=== PATIENT | male | born 1960 | race Two or more races ===

== ENCOUNTER → 2020-01-18 13:32 | Outpatient (BNVA) | payer MEDICARE, MEDICAID, SELFPAY | PROVIDERS: Family Provider Family Medicine; PCP Nurse Practitioner Family; Referring Provider Nurse Practitioner Family; Visit Provider Anesthesiology Pain Medicine | DX: M47.816 Spondylosis without myelopathy or radiculopathy, lumbar region (principal); M51.16 Intervertebral disc disorders with radiculopathy, lumbar region; M54.9 Dorsalgia, unspecified; F17.210 Nicotine dependence, cigarettes, uncomplicated | CPT/HCPCS: 99203 ==

== ENCOUNTER 2020-02-27 12:19 | Emergency (ER) | payer MEDICARE, MEDICAID, SELFPAY ==
[2020-02-27 12:23] VITALS: BP 121/91; PULSE 75; RESP 18; TEMP 36.8; O2SAT 98; BMI 31.4
--- NOTE | 2020-02-27 12:46 | W.ED.BACK ---
HPI - Back Pain/Injury General: Chief Complaint: Back Pain/Injury Stated Complaint: lower back pain Time Seen by Provider: 02/27/20 12:31 Source: patient Mode of arrival: ambulatory Limitations: no limitations History of Present Illness: HPI Narrative: 59-year-old male patient states that he was going to see his sister the day before [place] and slipped causing him to overstretch and worsen his low back pain. Patient reports that since then he feels like he is not as strong in his legs as he had been before. Patient appears well. Patient moves extremities well. Patient ambulates with minimal difficulty. Patient does have a chronic history of low back pain. Patient has recently moved back to the area. Patient sees Tai Moser for his primary care. Review of Systems General: Reports: 10 or more systems reviewed and unremarkable except in HPI and below Musc: Reports: back pain PFS ED PFSH: Social History (Updated 01/18/20 @ 14:14 by Arabella Gonzales LPN) Smoking and tobacco status: current every day smoker cigarettes Alcohol intake: current Alcohol intake frequency: other Lives independently: Yes History of recent travel: Yes Details: recently moved from [place] Out of state: Yes Physical Exam Const: COMMON NORMALS: no acute distress and patient oriented x3 GENERAL APPEARANCE: cooperative HENMT: COMMON NORMALS: normocephalic and Normal external nose present HEAD & SCALP: normal to inspection and normocephalic NOSE: Normal external nose present MOUTH: Normal oral and palatal mucosa present Eye: GENERAL EYE: appearance normal, both eyes and all related structures Neck/C-Spine: COMMON NORMALS: full ROM Lymph: LYMPHATIC: no lymphadenopathy noted Chest: COMMONS NORMALS: normal inspection of the chest Resp: COMMON NORMALS: normal respiratory effort EFFORT & INSPECTION: Yes able to speak in complete sentences Cardio: COMMON NORMALS: regular rate and regular rhythm RATE: regular rate RHYTHM: regular rhythm GI: COMMON NORMALS: non-tender Back/Pelvis: OTHER: Patient has some lower bilateral paraspinous muscle tenderness. Patient has some muscle spasms noted in the low back. Extremity: COMMON NORMALS: normal to inspection Neuro: COMMON NORMALS: patient oriented x3 and moves all extremities Psych: COMMON NORMALS: mental status grossly normal and cooperative Skin: COMMON NORMALS: no rashes or lesions noted GENERAL SKIN EXAM: no rashes or lesions noted Course Vital Signs: Vital signs: Vital Signs Temperature 98.2 F 02/27/20 12:23 Pulse Rate 75 02/27/20 12:23 Respiratory Rate 18 02/27/20 12:23 Blood Pressure 121/91 02/27/20 12:23 Pulse Oximetry 98 02/27/20 12:23 MDM - Back Pain/Injury MDM Narrative: Medical decision making narrative: Patient comes in for exacerbation of chronic low back pain. Patient describes an event that sounds like a strain to the lumbar area. Patient denies any changes in bowel or bladder or fever. Patient does report increased difficulty getting around with leg weakness. Patient appears well. Patient appears in moderate pain with muscle spasms. Differential diagnosis includes lumbar strain, intervertebral disc disease, facet arthritis. Reviewed exam with patient with recommendations for treatment and follow-up with primary care for further evaluation and treatment. No imaging was recommended at this time as patient did not have any significant fall or any cauda equina suggestive symptoms. Differential Diagnosis: Differential diagnosis back pain/injury: Likely lumbar radiculopathy, sciatica, strain of lumbar region and discitis Medical Records: Attestation: I reviewed the patient's medical records. Discharge Plan Discharge Patient Disposition: Home Clinical Impression: Facet arthritis, degenerative, lumbar spine Strain of lumbar region Qualifiers: Encounter type: initial encounter Qualified Code(s): S39.012A - Strain of muscle, fascia and tendon of lower back, initial encounter Condition: Stable Prescriptions: New tramadol 50 mg tablet 50 mg PO Q6H PRN (Reason: pain) Qty: 20 RF: 0 No Action celecoxib [Celebrex] 200 mg capsule 200 mg PO DAILY RF: 0 omeprazole 20 mg capsule,delayed release(DR/EC) 20 mg PO DAILY RF: 0 aspirin [Adult Aspirin Regimen] 81 mg tablet,delayed release (DR/EC) 81 mg PO DAILY RF: 0 gabapentin 600 mg tablet 600 mg PO TID RF: 0 triamterene-hydrochlorothiazid 37.5-25 mg capsule 1 cap PO DAILY RF: 0 simvastatin 20 mg tablet 20 mg PO DAILY RF: 0 tizanidine 4 mg tablet 4 mg PO TID PRNRF: 0 metoprolol succinate 50 mg tablet extended release 24 hr 50 mg PO DAILY RF: 0 lisinopril 20 mg tablet 20 mg PO DAILY RF: 0 Discharge Orders: Discharge ED (Routine); Ordered 02/27/20 Ordered By: Michael Damon Referrals: Clem Neville MD [Family Provider] - Tai Moser NP [Primary Care Provider] - Discharge Diet: Usual diet Discharge Activity: Increase activity as tolerated Patient Instructions: Chronic Back Pain (ED) Activity Restrictions/Additional Instructions: Activity as tolerated. Follow-up with primary care, Tai Moser. Maintain activity as much as possible. Return to the emergency room for new concerns. Coding Level of Care Code ED Laminator Hand for Chg Fwd Exam Comprehensive
[2020-02-27] MEDS: orphenadrine 30 mg/mL Inj 2 mL 60 MG IM (13:19)
[2020-02-27] MEDS: ketorolac 30 mg/mL INJ IM (13:19)
[2020-02-27 13:29] VITALS: BP 121/79; PULSE 72; RESP 14; O2SAT 96
== END 2020-02-27 13:29 | disposition home or self-care (01) ==
PROVIDERS: Emergency Provider Nurse Practitioner Family; Family Provider Family Medicine; PCP Nurse Practitioner Family
DX: M47.816 Spondylosis without myelopathy or radiculopathy, lumbar region (principal); S39.012A Strain of muscle, fascia and tendon of lower back, initial encounter; Z79.82 Long term (current) use of aspirin; F17.210 Nicotine dependence, cigarettes, uncomplicated; W01.0XXA Fall on same level from slipping, tripping and stumbling without subsequent striking against object, initial encounter
CPT/HCPCS: 12345; 96372; 99281; 99283; J1885; J2360

== ENCOUNTER 2020-03-26 15:08 | Outpatient (CLI) | payer MEDICARE, MEDICAID, SELFPAY ==
--- NOTE | 2020-03-26 15:18 | MR_ITS ---
WS: [id number] MRI LUMBAR SPINE NONCONTRAST HISTORY: BACK PAIN COMPARISON: None available. TECHNIQUE: Sagittal and axial multisequence imaging is submitted. Disc disease and osteophytes throughout the cervical and thoracic spine. Mild encroachment upon the c entral cervical canal at C3-4 to C6-7. RIGHT lumbar scoliosis due to severe disc space narrowing and desiccation and degeneration. 4 to 5 mm retrolisthesis of L1-L4. Reactive marrow edema along the endplates with loss of the normal cortical margin of the vertebral body endplates. Bilateral facet joint arthritis. Conus terminates normally at L1-2 disc level. L1-L2: Diffuse asymmetric disc bulging and osteophytic ridging. Moderate bilateral foraminal stenosis due to disc osteophyte disease. Mild encroachment upon the subarticular recesses. L2-L3: Diffuse osteophytic ridging and disc bulging. Asymmetric facet joint arthritis, LEFT greater t esposito RIGHT. Moderate LEFT lateral recess and LEFT foraminal stenosis due to combination of disc diseas e, facet disease and ligamentum flavum disease. Only mild narrowing on the RIGHT. L3-L4: Diffuse asymmetric disc bulging and osteophytic ridging. Marked bilateral facet joint arthriti s, LEFT greater than RIGHT. Severe LEFT foraminal and LEFT subarticular recess stenosis. L4-L5: Diffuse osteophytic ridging and disc bulging. Marked bilateral ligamentum flavum hypertrophy a nd facet arthritis. Moderate central stenosis. Severe bilateral foraminal stenosis and severe narrowi ng of the LEFT lateral recess. L5-S1: Diffuse osteophytic ridging and disc bulging. LEFT lateral subarticular recess disc protrusion or osteophyte encroaches upon the LEFT S1 nerve root. There is moderate central stenosis. Severe marleen ateral subarticular recess stenosis and RIGHT foraminal stenosis. Only mild narrowing of the LEFT for amen. There is severe RIGHT facet joint arthritis. MR/MR lumbar spine wo con* [id number] IMPRESSION: 1. Severe multilevel degenerative disc disease, osteophytosis and facet arthro ho throughout the lumbar spine. 2. Moderate degenerative scoliosis with convexity to the RIGHT. 3. Moderate central with severe bilateral subarticular recess stenosis and sev ere RIGHT foraminal stenosis at L5-S1. 4. Moderate bilateral foraminal stenosis at L1-2 and on the LEFT at L2-3. 5. Severe LEFT foraminal LEFT subarticular recess stenosis at L3-4. 6. Severe bilateral foraminal stenosis, LEFT lateral recess and moderate centr al stenosis at L4-5.
== END 2020-03-26 15:09 | disposition home or self-care (01) ==
PROVIDERS: PCP Nurse Practitioner Family; Visit Provider Nurse Practitioner Family
DX: M48.061 Spinal stenosis, lumbar region without neurogenic claudication (principal); M48.07 Spinal stenosis, lumbosacral region; M41.86 Other forms of scoliosis, lumbar region; M51.36 Other intervertebral disc degeneration, lumbar region
CPT/HCPCS: 72148

== ENCOUNTER → 2020-04-02 15:56 | Outpatient (BNVA) | payer MEDICARE, MEDICAID, SELFPAY | PROVIDERS: PCP Nurse Practitioner Family; Referring Provider Nurse Practitioner Family; Visit Provider Orthopaedic Surgery | DX: M51.16 Intervertebral disc disorders with radiculopathy, lumbar region (principal) | CPT/HCPCS: 72114 ==

== ENCOUNTER → 2020-04-26 14:44 | Outpatient (BNVA) | payer MEDICARE, MEDICAID, SELFPAY | PROVIDERS: PCP Nurse Practitioner Family; Visit Provider Orthopaedic Surgery | DX: M51.16 Intervertebral disc disorders with radiculopathy, lumbar region (principal); Z20.822 Contact with and (suspected) exposure to COVID-19 | CPT/HCPCS: 87635 ==

== ENCOUNTER 2020-06-05 14:03 | Outpatient (CLI) | payer MEDICARE, MEDICAID, SELFPAY ==
--- NOTE | 2020-06-05 14:11 | US_ITS ---
WS: [id number] ULTRASOUND THYROID TECHNIQUE: Ultrasound of the thyroid. CLINICAL INFORMATION: NODULE OF SUBCUTANEIOUS TISSUE OF NECK COMPARISON: None. FINDINGS: Thyroid: Right and left thyroid lobes are normal in size and echotexture. No thyroid nodules are pres ent. Right thyroid lobe: 3.5 cm x 1.8 cm x 2.0 cm Left thyroid lobe: 3.7 cm x 1.1 cm x 1.8 cm. Isthmus: 0.4 mm. Cervical lymphadenopathy: A few slightly prominent but normal-appearing submandibular and cervical ch ain lymph nodes with preserved fatty lynn. Palpable abnormality likely corresponds to lymph nodes. US/US thyroid [id number] IMPRESSION: 1. Thyroid is normal in appearance. No nodules. 2. A few slightly prominent cervical chain and submandibular lymph nodes with preserved fatty lynn. This likely corresponds to the palpable right neck abnorm ality. If continued concern, this can be Further evaluated with contrast-enhanc ed neck CT.
== END 2020-06-05 14:04 | disposition home or self-care (01) ==
LOC: US 14:06
PROVIDERS: PCP Nurse Practitioner Family; Visit Provider Family Medicine
DX: R22.1 Localized swelling, mass and lump, neck (principal)
CPT/HCPCS: 76536

== ENCOUNTER 2020-06-26 09:10 | Emergency (ER) | payer MEDICARE, MEDICAID, SELFPAY ==
[2020-06-26 09:27] VITALS: BP 99/63; PULSE 112; RESP 18; TEMP 36.8; O2SAT 96; BMI 33.9
--- NOTE | 2020-06-26 09:42 | ED_ITS ---
HPI - Nausea/Vomiting/Diarrhea General: Chief complaint: Nausea/Vomiting/Diarrhea Stated complaint: n/v Time Seen by Provider: 06/26/20 09:35 History of Present Illness: HPI Narrative: Patient is a 59-year-old male comes to the ED with nausea, vomiting and diarrhea. Patient thinks he developed food poisoning. Patient made some food yesterday and ate it last night. He says this morning he woke up and he was having nausea vomiting and diarrhea. He says that his brother ate the same thing yesterday earlier today in the day and he developed the same symptoms. Denies any fever, chills, chest pain, shortness of breath, abdominal pain, dysuria or hematuria. Associated nausea: Yes Associated symtoms: Reports nausea; Denies change in vision, chest pain, dysuria, fatigue, headache(s) or palpitations Review of Systems Const: Denies: fever(s), chills or fatigue Eyes: Denies: change in vision or eye discomfort ENMT: Denies: throat pain, odynophagia, nasal discharge or nasal congestion Card: Denies: chest pain, palpitations, edema, swelling of feet/ankles, dyspnea on exertion or orthopnea Resp: Denies: dyspnea, productive cough or non-productive cough GI: Reports: nausea, vomiting and diarrhea; Denies: abdominal pain, constipation or hematochezia : Denies: flank pain, difficulty urinating, dysuria or hematuria Musc: Denies: neck pain, back pain or extremity swelling Skin/Breast: Denies: rash or new lesions Neuro: Denies: headache(s), numbness in extremities or weakness in extremities PFS ED PFSH: Social History Smoking and tobacco status: current every day smoker cigarettes Alcohol intake: current Alcohol intake frequency: other Lives independently: Yes History of recent travel: Yes Details: recently moved from [place] Out of state: Yes Physical Exam Const: COMMON NORMALS: no acute distress, patient oriented x3 and alert GENERAL APPEARANCE: cooperative and comfortable NUTRITIONAL APPEARANCE: overweight HENMT: COMMON NORMALS: normocephalic HEAD & SCALP: normocephalic MOUTH: Normal oral and palatal mucosa present THROAT: posterior oropharynx normal and uvula midline Neck/C-Spine: COMMON NORMALS: supple GENERAL: Yes normal visual inspection Resp: COMMON NORMALS: normal respiratory effort, No retractions, No use of accessory muscles and clear to auscultation bilaterally AUSCULTATION: clear to auscultation bilaterally Cardio: COMMON NORMALS: regular rate, regular rhythm, S1 normal heart sound present, S2 normal heart sound present, No gallops present (Cardio), No clicks present (Cardio), No murmurs present (Cardio) and Peripheral pulses 2+ throughout RATE: regular rate RHYTHM: regular rhythm HEART SOUNDS: S1 normal heart sound present and S2 normal heart sound present PERIPHERAL PULSES: Peripheral pulses 2+ throughout GI: COMMON NORMALS: Normal to inspection, nondistended, normoactive bowel sounds present, Soft to palpation, non-tender and no masses PALPATION: Yes Soft to palpation : COMMON NORMALS: Yes no CVA tenderness BLADDER/KIDNEY EXAM: Yes no CVA tenderness Back/Pelvis: COMMON NORMALS: no CVA tenderness Extremity: COMMON NORMALS: normal to inspection Neuro: COMMON NORMALS: patient oriented x3 and moves all extremities SENSORIUM/ORIENTATION: Yes alert Skin: GENERAL SKIN EXAM: dry skin Course Reevaluation(s): Reevaluation #1: I went in to check on patient after he received IV fluids and Reglan. Patient says he is feeling a lot better and nausea is greatly improved. Patient has had no episodes of emesis while here in the ED. Patient ready for discharge home. Time: 10:49 Vital Signs: Vital signs: Vital Signs Temperature 98.3 F 06/26/20 09:27 Pulse Rate 107 H 06/26/20 10:37 Respiratory Rate 18 06/26/20 10:37 Blood Pressure 102/61 06/26/20 10:37 Pulse Oximetry 95 06/26/20 10:37 MDM - Nausea/Vomiting/Diarrhea MDM Narrative: Medical decision making narrative: Patient is a 59-year-old male comes to the ED with nausea vomiting and diarrhea. Symptoms started several hours after he eating food. Patient's brother had same food earlier that day and developed same symptoms. Patient appears nontoxic and is in no acute distress or pain. Exam findings unremarkable patient had no abdominal tenderness. Vitals stable. patient had a white blood cell count of 16 but no other remarkable lab findings. Patient given IV fluids and Reglan while here in the ED and his symptoms greatly improved. He had no episodes of emesis while here in the ED. Patient was discharged home and diagnosed with food poisoning told to throw out food that cause symptoms to make sure he drinks plenty of fluids and stays hydrated. He was discharged home with a prescription for Reglan as well. Return to ED precautions given. Told to follow-up with his PCP in 7 to 10 days for reevaluation. Patient understood agree with plan. Lab Data: Attestation: I reviewed the patient's lab results. Labs: Lab Results 06/26/20 06/26/20 Range/Units 09:50 09:50 WBC 16.1 H (4.0-10.0) 10^3/ uL RBC 6.00 H (4.1-5.3) 10^6/u L Hgb 16.7 H (11.7-16.6) g/dL Hct 51.4 (42.0-52.0) % MCV 85.7 (80-94) fL MCH 27.8 L (28.0-34.0) pg MCHC 32.5 (30.0-36.0) g/dL RDW 13.7 (12.1-15.1) % Plt Count 231 (130-400) 10^3/c mm MPV 11.0 H (7.4-10.4) fL Neut % (Auto) 69.7 % Lymph % (Auto) 21.4 % [place] % (Auto) 5.2 % Eos % (Auto) 2.6 % Baso % (Auto) 0.4 % Neut # (Auto) 11.26 H (1.8-7.7) 10^3/u L Lymph # (Auto) 3.5 (0.8-4.8) 10^3/u L [place] # (Auto) 0.8 (0.2-0.9) 10^3/u L Eos # (Auto) 0.4 (0.0-0.8) 10^3/u L Baso # (Auto) 0.1 (0.0-0.1) 10^3/u L Nucleated RBC % (a uto) 0 % Nucleated RBCs # 0.0 /100WBC Sodium 141 (136-145) mmol/L Potassium 4.0 (3.5-5.1) mmol/L Chloride 104 (98-107) mmol/L Carbon Dioxide 24 (22-29) mmol/L Anion Gap 17.0 (5-19) BUN 23 H (6-20) mg/dL Creatinine 1.1 (0.7-1.2) mg/dL GFR Calculation 69.0 L (90-130) mL/min Glucose 131 H (65-115) mg/dL Calculated Osmolal ity 297 H (285-295) mOsm/k g Calcium 9.3 (8.5-10.5) mg/dL Total Bilirubin 0.5 (0.15-1.2) mg/dL AST 16 (0-40) U/L ALT 14 (0-41) U/L Alkaline Phosphata se 75 (40-130) IU/L Total Protein 7.3 (6.6-8.7) g/dL Albumin 4.6 (3.5-5.2) g/dL Globulin 2.7 (1.3-4.6) g/dL Lipase 25 (13-60) U/L EKG Data^: EKG 1: Attestation: I personally reviewed and interpreted this EKG as follows: EKG interpretation date: 06/26/20 Interpretation: Sinus tachycardia, 111 bpm, no ST segment elevation or depression seen. Discharge Plan Discharge Patient Disposition: Home Clinical Impression: Food poisoning Condition: Stable Prescriptions: New metoclopramide HCl 10 mg tablet 10 mg PO Q6H PRN (Reason: nausea and vomiting) Qty: 12 RF: 0 No Action celecoxib [Celebrex] 200 mg capsule 200 mg PO DAILY RF: 0 omeprazole 20 mg capsule,delayed release(DR/EC) 20 mg PO DAILY RF: 0 aspirin [Adult Aspirin Regimen] 81 mg tablet,delayed release (DR/EC) 81 mg PO DAILY RF: 0 gabapentin 600 mg tablet 600 mg PO TID RF: 0 triamterene-hydrochlorothiazid 37.5-25 mg capsule 1 cap PO DAILY RF: 0 simvastatin 20 mg tablet 20 mg PO DAILY RF: 0 tizanidine 4 mg tablet 4 mg PO TID PRNRF: 0 metoprolol succinate 50 mg tablet extended release 24 hr 50 mg PO DAILY RF: 0 lisinopril 20 mg tablet 20 mg PO DAILY RF: 0 tramadol 50 mg tablet 50 mg PO Q6H PRN (Reason: pain) Qty: 20 RF: 0 Discharge Orders: Discharge ED (Routine); Ordered 06/26/20 Ordered By: Manolo Haro Referrals: Tai Moser NP [Primary Care Provider] - Discharge Diet: Advance as tolerated Discharge Activity: Increase activity as tolerated Patient Instructions: Food Poisoning (ED) Activity Restrictions/Additional Instructions: Follow-up with medical provider as directed in 7 to 10 days for reevaluation. Take medications as prescribed to help with nausea. Make sure you drink plenty of fluids and stay hydrated. Return to the ER or your medical provider if condition worsens. Please read and understand discharge instructions. If any questions, please ask. Coding Level of Care Code ED Chamfering Machine Operator for Chg Fwd Exam Comprehensive
[2020-06-26 09:54] VITALS: BP 115/61; PULSE 95; RESP 18; O2SAT 93
[2020-06-26] MEDS: sodium chloride 0.9% 1,000 ML 999 ML IV (09:58)
[2020-06-26] MEDS: metoclopramide 5 mg/mL SDV 2 mL 10 MG IVP (09:59)
[2020-06-26 10:09] LABS: Basophils # 0.1 10^3/uL (0.0-0.1); Basophils % 0.4 %; Eosinophils # 0.4 10^3/uL (0.0-0.8); Eosinophils % 2.6 %; Hematocrit 51.4 % (42.0-52.0); Hemoglobin 16.7 g/dL (11.7-16.6); Lymphocytes # 3.5 10^3/uL (0.8-4.8); Lymphocytes % 21.4 %; Mean Corpuscular HGB Conc 32.5 g/dL (30.0-36.0); Mean Corpuscular Hemoglobin 27.8 pg (28.0-34.0); Mean Corpuscular Volume 85.7 fL (80-94); Monocytes # 0.8 10^3/uL (0.2-0.9); Monocytes % 5.2 %; Neutrophils # 11.26 10^3/uL (1.8-7.7); Neutrophils % 69.7 %; Nucleated Red Blood Cells % 0 %; Platelet Count 231 10^3/cmm (130-400); Red Cell Distribution Width 13.7 % (12.1-15.1); White Blood Count 16.1 10^3/uL (4.0-10.0)
[2020-06-26 10:27] LABS: Alanine Aminotransferase 14 U/L (0-41); Albumin Level 4.6 g/dL (3.5-5.2); Alkaline Phosphatase 75 IU/L (40-130); Aspartate Amino Transferase 16 U/L (0-40); Blood Urea Nitrogen 23 mg/dL (6-20); Calcium 9.3 mg/dL (8.5-10.5); Carbon Dioxide 24 mmol/L (22-29); Chloride 104 mmol/L (98-107); Globulin 2.7 g/dL (1.3-4.6); Glucose 131 mg/dL (65-115); Lipase 25 U/L (13-60); Osmolality Calculated 297 mOsm/kg (285-295); Sodium 141 mmol/L (136-145); Total Bilirubin 0.5 mg/dL (0.15-1.2); Total Protein 7.3 g/dL (6.6-8.7)
[2020-06-26 10:37] VITALS: BP 102/61; PULSE 107; RESP 18; O2SAT 95
[2020-06-26 11:32] VITALS: BP 123/89; PULSE 120; RESP 16; O2SAT 93
== END 2020-06-26 11:33 | disposition home or self-care (01) ==
PROVIDERS: Emergency Provider Physician Assistant; PCP Nurse Practitioner Family
DX: A05.9 Bacterial foodborne intoxication, unspecified (principal); Z79.82 Long term (current) use of aspirin; F17.210 Nicotine dependence, cigarettes, uncomplicated
CPT/HCPCS: 80053; 83690; 85025; 96361; 96374; 99283; J2765; J7030

== ENCOUNTER 2020-07-09 13:33 | Outpatient (CLI) | payer MEDICARE, MEDICAID, SELFPAY ==
[2020-07-09 14:43] LABS: Basophils # 0.1 10^3/uL (0.0-0.1); Basophils % 0.4 %; Eosinophils # 0.6 10^3/uL (0.0-0.8); Eosinophils % 3.5 %; Hematocrit 47.5 % (42.0-52.0); Hemoglobin 15.3 g/dL (11.7-16.6); Lymphocytes # 8.1 10^3/uL (0.8-4.8); Lymphocytes % 48.4 %; Mean Corpuscular HGB Conc 32.2 g/dL (30.0-36.0); Mean Corpuscular Hemoglobin 28.2 pg (28.0-34.0); Mean Corpuscular Volume 87.6 fL (80-94); Mean Platelet Volume 11.4 fL (7.4-10.4); Monocytes # 1.1 10^3/uL (0.2-0.9); Monocytes % 6.5 %; Neutrophils # 6.76 10^3/uL (1.8-7.7); Neutrophils % 40.2 %; Nucleated Red Blood Cells % 0 %; Platelet Count 282 10^3/cmm (130-400); Red Blood Count 5.42 10^6/uL (4.1-5.3); White Blood Count 16.8 10^3/uL (4.0-10.0)
--- NOTE | 2020-07-09 16:08 | ONC CON_ITS ---
Dr. Jimenez New Patient Note Patient: Sadi Paniagua Jr Unit #: [id number]: 1960 Dicatated By: Selene Jimenez M.D.Date of Visit: July 09, 2020 Onc MED New Patient/Consult Referring Physician: Jared Villarreal History of Present Illness: Mr. Siva Avitia, is a 59-year-old gentleman with a history of leukocytosis since 2018, as per patient that was the first time he saw oncologist in [place] and he was told everything was fine and he used to see his oncologist every 6 months with lab work-up and last time he saw him in January 2019 as in June 2019 he moved to [facility] because of low cost of living. Patient never had bone marrow evaluation done never had CT scan done, His lab work-up done in his PMDs office on May 16, 2020 showed white blood count 13.7 hemoglobin 14.3 hematocrit 42.3 platelets 230,000 with lymphocytes 48% neutrophil 41% absolute lymphocyte count 6600., PSA was 2 patient denies any night sweats denies any weight loss denies any abdominal fullness denies any recurrent fever, denies any peripheral lymphadenopathy except recently his new PMD noted some right submandibular/neck lymph nodes, for which he underwent ultrasound thyroid on June 05, 2020 which showed thyroid is normal in appearance ,few slightly prominent cervical chain and mandibular lymph nodes with preserved fatty lynn. His past medical history significant for history of esophageal stricture status post esophageal dilation in 2019. History of smoking, smoked 1 pack a day, colonoscopy was done on March 01, 2016 Past Medical History: Mr. Siva Harrison's medical history consists of arthritis, nerve damage, and scoliosis. Past Surgical History: Mr. Siva Harrison's surgical/procedural history consists of hernia repair in 2016 and appendectomy in 1976. Medications: Advair Diskus 1 Puff(s) (of 500-50 mcg/dose) Aerosol Powder, Breath Activated Inhalation b.i.d., Gabapentin 1 Tablet (of 600 mg) Oral t.i.d., Ketorolac Tromethamine 1 Tablet (of 10 mg) Oral PRN, Lisinopril 1 Tablet (of 20 mg) Oral daily, Meloxicam 1 Tablet (of 15 mg) Oral daily, Metoprolol Succinate ER 1.5 Tablet Tablet SR 24 HR Oral daily, Omeprazole 1 Capsule (of 20 mg) Capsule Delayed Release Oral daily, Simvastatin 1 Tablet (of 20 mg) Oral daily, tiZANidine HCl 1 Tablet (of 4 mg) Oral PRN, Triamterene-HCTZ 1 Tablet (of 37.5-25 mg) Oral daily, Ventolin HFA 1 Puff(s) (of 108 (90 base) mcg/act) Aerosol, solution Inhalation PRN Allergies: Morphine Sulfate Social History: Mr. Siva Harrison is single. He is a daily smoker who has smoked 1.0 pack/day for 35 years. He has no history of drinking. He has indicated exposure to the following products: cigarettes. Family History: Mr. Siva Harrison's mother at age 66: myocardial infarction. Mr. Siva Harrison's father at age 68: type II diabetes. Review Of Symptoms: Review of Systems is not available for this patient. Vital Signs: Performed on July 09, 2020 15:47: 0, 8, 0.00, 0.00 sq.m, 98 %, 67 /min, 18 /min, 119/72 mm(hg), 96.9 F (LOW), and 199 lbs (HIGH). Performance Status: 0 - Fully active, able to carry on all predisease activities without restrictions. (ECOG) Physical Examination: ENMT - No mouth sores, no thrush, no jaundice, mild shotty cervical lymphadenopathy more prominent on the right side no axillary lymph node or supraclavicular lymph node, Respiratory - Poor air entry otherwise clear, Cardiovascular - Regular rate and rhythm of heart, Abdomen - Soft, bowel sounds present, Extremities - No visible edema or rash. Lab/Imaging: Most recent lab results are not available for this patient. Impression: Leukocytosis/lymphocytosis as per labs done on May 16, 2020 his white blood count was 13.7, hemoglobin 14 point hematocrit 42.3 platelets 230,000 with absolute lymphocyte count 6600 and ultrasound next done on June 05, 2020 shows a few slightly prominent but normal-appearing submandibular and cervical chain lymph nodes with preserved fatty lynn otherwise no abnormality seen Patient has history of leukocytosis since March 2017, was followed by oncologist in [place], on 6 monthly basis with lab work-up, as per patient no bone marrow evaluation or any scan was done and he was told everything is fine. Chronic smoking 1 pack a day for more than 35 years Arthritis Esophageal stricture status post dilatation x2 in 2019. Last colonoscopy was in March 2016 Plan: . 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 Patient was advised to quit smoking and was offered any assistance he may need. Signed By: Selene Jimenez M.D. <<Signature on File>>
== END 2020-07-09 13:34 | disposition home or self-care (01) ==
PROVIDERS: PCP Nurse Practitioner Family; Visit Provider Internal Medicine Hematology & Oncology
DX: D72.820 Lymphocytosis (symptomatic) (principal); F17.210 Nicotine dependence, cigarettes, uncomplicated; M19.90 Unspecified osteoarthritis, unspecified site; K22.2 Esophageal obstruction; Z79.899 Other long term (current) drug therapy
CPT/HCPCS: 36415; 85025; 99205

== ENCOUNTER → 2020-07-12 14:00 | Outpatient (BNVA) | payer MEDICARE, MEDICAID, SELFPAY | PROVIDERS: PCP Nurse Practitioner Family; Visit Provider Orthopaedic Surgery | DX: Z01.812 Encounter for preprocedural laboratory examination (principal); Z20.822 Contact with and (suspected) exposure to COVID-19 | CPT/HCPCS: 87635 ==

== ENCOUNTER 2020-07-17 11:34 | Day surgery (SDC) | payer MEDICARE, MEDICAID, SELFPAY ==
--- NOTE | 2020-04-30 14:39 | SUR.PREOP ---
when I called patient to complete pre op, he stated he forgot that surgery was scheduled for tomorrow and he needs to get his vehicle fixed instead. Provided patient with ortho clinic phone number to reschedule.
[2020-07-16 16:04] VITALS: BMI 32.1
--- NOTE | 2020-07-17 | SCC_ITS ---
Procedure Done: 1. L4/5 laminectomy with partial facetectomy Bilateral 11.4 seconds of fluoroscopic guidance, for a cumulative dose of 5.06 mGy, was provided to Dr. Elliott by the radiology department. C-arm images of the lumbar spine were saved for the patient's permanent record. [facility]
[2020-07-17 12:03] VITALS: BP 134/96; PULSE 72; RESP 16; TEMP 36.5; O2SAT 98
[2020-07-17] MEDS: sodium chloride 0.9% 1,000 ML 30 ML IV (12:16)
--- NOTE | 2020-07-17 12:33 | P.HP_ITS ---
Providers/Chief Complaint Primary Care Provider: Tai Moser NP Chief Complaint: bilateral miss decompression L4/5 91873, [id number] History of Present Illness Sadi Paniagua Jr is a 59 year old male He states he has questions he would like answered prior to his surgery. Chief Complaint: low back pain, surgery questions Onset: 15 years Duration: years Characteristics: pressure, ache Severity: 8/10 Location: low back Radiating symptoms:left leg weakness right hip,right lateral thigh into toes, Aggravating factors: everything Alleviating factors: rest Neuro deficits: denies, incontinence of bowel/bladder, saddle anesthesia. Prior tx: physical therapy with no change in symptoms. trigger point injections. Review of Systems Narrative: General ROS: negative for weight changes, fever ENT ROS: negative for nasal congestion, drainage or bleeding, sore throat, dysphagia or ear pain Eyes: PERRL Hematological and Lymphatic ROS: negative for swollen glands or abnormal bleeding Endocrine ROS: negative for polyuria/polydpsia or new changes in weight Respiratory ROS: negative for cough, shortness of breath, or wheezing Cardiovascular ROS: negative for chest pain or dyspnea on exertion Gastrointestinal ROS: negative for reflux, abdominal pain, change in bowel habits, or black or bloody stools Musculoskeletal ROS: negative for back pain, neck pain, or joint pain or swelling except for current problem Neurological ROS: negative for TIA or stoke symptoms Skin: no rashes Medications/Allergies Home Medications Medication Instructions Recorded Confirmed Last Taken Type aspirin 81 mg tablet,delayed 81 mg PO DAILY 01/18/20 07/16/20 07/15/20 History release gabapentin 600 mg tablet 600 mg PO TID 01/18/20 07/17/20 07/17/20 History lisinopril 20 mg tablet 20 mg PO DAILY 01/18/20 07/16/20 07/16/20 History metoprolol succinate 50 mg 50 mg PO DAILY 01/18/20 07/17/20 07/17/20 08:00 History tablet,extended release 24 hr omeprazole 20 mg capsule,delayed 20 mg PO DAILY 01/18/20 07/17/20 07/17/20 History release simvastatin 20 mg tablet 20 mg PO DAILY 01/18/20 07/16/20 07/16/20 History tizanidine 4 mg tablet 4 mg PO TID PRN 01/18/20 07/17/20 07/17/20 History triamterene 37.5 1 cap PO DAILY 01/18/20 07/17/20 07/17/20 History mg-hydrochlorothiazide 25 mg capsule albuterol sulfate 90 mcg/actuation 2 puff INHALATION Q6H PRN 07/04/20 07/16/20 05/15/20 History aerosol inhaler fluticasone 500 mcg-salmeterol 50 1 inh INHALATION BID 07/04/20 07/16/20 04/17/20 History mcg/dose blistr powdr for inhalation meloxicam 15 mg tablet 15 mg PO DAILY 07/04/20 07/16/20 07/16/20 History Allergies Allergy/AdvReac Type Severity Reaction Status Date / Time morphine AdvReac ITCHING Verified 07/04/20 09:47 PFSH Acute PFSH: Social History Smoking and tobacco status: current every day smoker cigarettes Packs smoked per day: 1 Years cigarettes smoked: 40 Alcohol intake: current Alcohol intake frequency: other Lives independently: Yes History of recent travel: Yes Details: recently moved from [place] Out of state: Yes Vitals/I&O/Wt Last Vital Signs Temp 97.7 F 07/17/20 12:03 Pulse 72 07/17/20 12:03 Resp 16 07/17/20 12:03 BP 134/96 07/17/20 12:03 Pulse Ox 98 07/17/20 12:03 Weight last 48 hrs Weight 199 lb Physical Exam Narrative: EXAM NARRATIVE: CONSTITUTIONAL: The patient is a normal appearing [] in no apparent distress. GENERAL: Patient in no acute distress. CARDIAC: Regular rate and rhythm. CHEST: Normal inspiratory effort, normal respiratory rate. ABDOMEN: Soft and nontender. SKIN: Clear, warm and intact. NEURO?PSYCH: The patient is alert and oriented to person, place and time. Sensorv /SILT Motor StrengthShoulder abduction C5 5/5Wrist extension C6 5/5Elbow extension C7 5/5Hand [employer] C8 5/5Finger abduction T15/5 Radial/ Ulnar/ Median n intact LowerSensory (SILT)Motor StrengthHin flexion L2/3Ant/inner thigh 5/5Hip adduction L2/3 5/5Knee extension L4 Lat thigh, 5/5Toe dorsiflexion L5 5/5Ankle dorsiflexion L5/ F73Uuyqwty flexion S1 5/5 DTRBleeps 2+Triceps 2+Brachioradialis 2+Patellar 2+Achilles 2+ MUSCULOSKELETAL: [] UPPEREXTREMITIES: The patient had full active ROM in fingers, wrist, elbow, and shoulder. The patient demonstrated ability to fully flex/extend/abduct/adduct fingers, make ok sign, cross 2nd/3rd digits, extend 1st digit fully.. Radial pulse 2+, CR<2 seconds. LOWER EXTREMITIES: Pt has full, active ROM of toes, ankle, knee, and hip. Dorsalis pedis/posterior tibialis pulses 2+, CR<2 seconds. SPINE: Skin warm, dry, intact. 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
--- NOTE | 2020-07-17 13:01 | P.ANESASSM_ITS ---
Pre-Anesthetic Assessment Pre-Anesthetic Assessment: Height/Weight: Height 1.68 m Weight 90.265 kg Temp Pulse Resp BP Pulse Ox 97.7 F 72 16 134/96 98 07/17/20 12:03 07/17/20 12:03 07/17/20 12:03 07/17/20 12:03 07/17/20 12:03 Preop Diagnosis: lumbar stenosis Proposed Procedure: Operation Date: 05/01/20 16:30 Proposed Procedures p bilateral mis decompression L4/5 33902, 90143 m48.06(Bilateral) - Mnocho H Lexi, DO Operation Date: 06/17/20 12:35 Proposed Procedures p Bilateral Mis Decompression L4/5 87834 02730 M48.06(Bilateral) - Moncho H Lexi, DO Operation Date: 07/17/20 14:00 Proposed Procedures p Bilateral Mis Decompression L4/5 01281 08841 M48.06(Bilateral) - Moncho H Lexi, DO Was Beta Vipin taken within 24 hours: Yes Last intake: Intake Last Liquid Date 07/16/20 Last Liquid Time 22:30 Last Solid Date 07/16/20 Last Solid Time 20:00 Social: Social History: Tobacco and No alcohol Exam: Pre-Anes Outpt Exam: alert, oriented x 3, clear to auscultation bilaterally and regular rate & rhythm Airway: Submandibular: WNL Cervical ROM: WNL MP: 2 Dentition: False History/ROS: No significant history except as noted and No significant comp laints Pulmonary: Pulmonary: WRIGHT CV/HEM: CV/HEM: HTN : : None reported Hepatic: Hepatic: None reported GI: GI: GERD Metabolic: Metabolic: None reported Musc/skel: Musc/skel: Lower Back Pain and OA/DJD Neuropsych: Neuropsych: None reported Anesthetic Plan: ASA status: 3 Anesthesia: Anesthesia Evaluation and General Risk of > 500 ml blood loss (7ml/kg in children): No Meds/Allergies Current Medications: Current Medications Generic Name Dose Route Start Last Admin Trade Name Freq PRN Reason Stop Dose Admin Sodium Chloride 1,000 mls @ 30 ml s/hr 07/17/20 12:00 07/17/20 12:16 Sodium Chloride 0.9% IV 07/18/20 11:59 30 mls/hr .Q24H DAPHNEY Administration PFSH Anesthesia PFSH: Social History Smoking and tobacco status: current every day smoker cigarettes Packs smoked per day: 1 Years cigarettes smoked: 40 Alcohol intake: current Alcohol intake frequency: other Lives independently: Yes History of recent travel: Yes Details: recently moved from [place] Out of state: Yes Data Anesthesia Cardiac Studies: No Data to Display
--- NOTE | 2020-07-17 14:12 | XR_ITS ---
WS: [id number] Lumbar spine, C-arm fluoroscopy views, 07/17/2020 Clinical Data: OR PICS Comparison: None. Findings: Dr. Elliott inspected the L3-L4 disc level. XR/XR lumbar spine 1V [id number] Impression: Visualization of the L3-L4 disc level.
[2020-07-17 14:15] VITALS: BP 144/117; PULSE 96; RESP 20; TEMP 36.2; O2SAT 96
[2020-07-17 14:20] VITALS: BP 122/79; PULSE 81; RESP 12; O2SAT 99
[2020-07-17 14:25] VITALS: BP 125/80; PULSE 89; RESP 18; TEMP 36.6; O2SAT 96
--- NOTE | 2020-07-17 14:25 | P.OP_ITS ---
Operative Report Date of procedure: July 17, 2020 Pre-op Diagnosis: lumbar stenosis L4/5 Post-op diagnosis: same Procedure Done: 1. L4/5 laminectomy with partial facetectomy Bilateral Anesthesia: General Estimated blood loss (mL): 5 Condition: stable Disposition: PACU Procedure: 1. L4/5 laminectomy with partial facetectomy Bilateral Patient is brought to the operative suite. After undergoing anesthesia they are placed in the supine position. All areas of impingement are well padded. Patien t is then prepped and draped in the normal sterile fashion. A skin incision is made over the L4/5 level. This is confirmed under c-arm guidance. A series of dilators are passed and the tubular retractor is docked on the L4 lamina. A bovie is used to clear the soft tissue off the lamina and the L 4/5 facet joint. A high speed aman is then used to perform the laminectomy and take down the medial aspect of the L 4/5 facet joint. A kerrison rongeure was then used to take down the remaining lamina and smooth the edged of the laminectomy up to the point where the ligamentum flavum attaches. Attention was then brought to the medial aspect of the facet joint. The remaining medial aspect of the superior and inferior aspect of the facet joint were taken down with the kerrison from the pedicle of L4 to L 5. The facet joint had significant hypertrophy. Attention was then brought to the Ligamentum Flavum. The ligament was taken down from the lamina of L4 to L5 and out medially to the remaining facet joint. The ligament was thick. The dura was then exposed. The dura was in good repair. The L4 nerve was then traced with a curette out the L4/5 foramen and found to be adequately decompressed. The L5 nerve was traced with a curette around the L5 pedicle. The lateral recess was opened with a kerrison helping to further decompress the L5 nerve. The tubular retractor was then tilted to the contralateral side. The bovie was used to take down the soft tissue on the spinous process. The high speed aman was used to take down the spinous process and then the contralateral lamina of L4. The kerrison rongeur was used to take down the remaining lamina to the point where the ligamentum flavum attached and the ligamentum flavum was taken down from L4 to L5. The kerrison rongeur was then used to reach across and take down the medial aspect of the contralateral L4/5 facet joint.The currete was used to trace the contralateral L4 nerve out the L4/5 foramen to make sure it was decompressed adequatesly and the L5 was traced around the L5 pedicle. The lateral recess was opened further with the kerrison to ensure the L5 is adequately decompressed. Wound is then irrigated copiously with saline and surgiflo is used to stop any bleeding. The tubular retractor is removed and the wound is closed with vicryl and monocryl suture. Glue is then used to protect the wound. A sterile dressing is then placed. Patient was then placed in the supine position and transferred to the PACU in stable condition.
[2020-07-17 14:31] VITALS: BP 121/87; PULSE 81; RESP 16; TEMP 36.6; O2SAT 97
[2020-07-17 14:46] VITALS: BP 137/90; PULSE 64; RESP 16; TEMP 36.7; O2SAT 99
--- NOTE | 2020-07-17 15:38 | ANE.PACU2 ---
Inpatient post-anesthesia follow up: Airway intact: Yes Vital signs: Temperature 98.1 F Pulse Rate 64 Respiratory Rate 16 Blood Pressure 137/90 Pulse Oximetry 99 Oxygen Delivery Me thod Room Air Oxygen Flow Rate 8 Fraction of Inspir ed Oxygen Hydration adequate: Yes Nausea and vomiting: No Pain level: 2 Mental status: Baseline
== END 2020-07-17 15:10 | disposition home or self-care (01) ==
PROVIDERS: PCP Nurse Practitioner Family; Visit Provider Orthopaedic Surgery
PROC: (CPT 63005; principal; 2020-07-17 13:40)
DX: M48.061 Spinal stenosis, lumbar region without neurogenic claudication (principal); I10 Essential (primary) hypertension; K21.9 Gastro-esophageal reflux disease without esophagitis; F17.210 Nicotine dependence, cigarettes, uncomplicated; Z79.82 Long term (current) use of aspirin
CPT/HCPCS: 63047; 72020; 76000; J0690; J1100; J2405; J2704; J2710; J3010; J3490; J7030

== ENCOUNTER 2020-08-19 13:59 | Outpatient (CLI) | payer MEDICARE, MEDICAID, SELFPAY ==
[2020-08-19 14:47] LABS: Basophils # 0.1 10^3/uL (0.0-0.1); Basophils % 0.5 %; Eosinophils # 0.8 10^3/uL (0.0-0.8); Eosinophils % 5.5 %; Hematocrit 42.3 % (42.0-52.0); Hemoglobin 13.9 g/dL (11.7-16.6); Lymphocytes # 7.5 10^3/uL (0.8-4.8); Lymphocytes % 49.6 %; Mean Corpuscular HGB Conc 32.9 g/dL (30.0-36.0); Mean Corpuscular Hemoglobin 28.4 pg (28.0-34.0); Mean Corpuscular Volume 86.3 fL (80-94); Monocytes # 0.9 10^3/uL (0.2-0.9); Neutrophils # 5.69 10^3/uL (1.8-7.7); Neutrophils % 37.5 %; Nucleated Red Blood Cells % 0 %; Platelet Count 231 10^3/cmm (130-400); Red Cell Distribution Width 14.2 % (12.1-15.1); White Blood Count 15.2 10^3/uL (4.0-10.0)
[2020-08-19 15:12] LABS: Albumin Level 4.1 g/dL (3.5-5.2); Alkaline Phosphatase 75 IU/L (40-130); Anion Gap 15.8 (5-19); Blood Urea Nitrogen 21 mg/dL (6-20); Calcium 9.1 mg/dL (8.5-10.5); Carbon Dioxide 22 mmol/L (22-29); Chloride 108 mmol/L (98-107); Globulin 2.1 g/dL (1.3-4.6); Glomerular Filtration Rate 62.2 mL/min (90-130); Glucose 96 mg/dL (65-115); Lactate Dehydrogenase 192 U/L (135-225); Osmolality Calculated 295 mOsm/kg (285-295); Potassium 4.8 mmol/L (3.5-5.1); Sodium 141 mmol/L (136-145); Total Bilirubin 0.2 mg/dL (0.15-1.2); Total Protein 6.2 g/dL (6.6-8.7)
[2020-08-19 15:27] LABS: Slide Review Slide Review Perform
[2020-08-19 15:39] LABS: Alanine Aminotransferase < 5 U/L (0-41); Aspartate Amino Transferase 5 U/L (0-40)
--- NOTE | 2020-08-19 16:41 | ONC FU_ITS ---
Dr. Jimenez follow up note Patient: Sadi Paniagua Jr Unit #: [id number]: 1960 Dicatated By: Selene Jimenez M.D.Date of Visit:Aug 19, 2020 Onc Med Follow-up/Prog Note History of Present Illness: Mr. Siva Avitia, is a 59-year-old gentleman with a history of leukocytosis since 2018, as per patient that was the first time he saw oncologist in [place] and he was told everything was fine and he used to see his oncologist every 6 months with lab work-up and last time he saw him in January 2019 as in June 2019 he moved to [facility] because of low cost of living. Patient never had bone marrow evaluation done never had CT scan done, His lab work-up done in his PMDs office on May 16, 2020 showed white blood count 13.7 hemoglobin 14.3 hematocrit 42.3 platelets 230,000 with lymphocytes 48% neutrophil 41% absolute lymphocyte count 6600., PSA was 2 patient denies any night sweats denies any weight loss denies any abdominal fullness denies any recurrent fever, denies any peripheral lymphadenopathy except recently his new PMD noted some right submandibular/neck lymph nodes, for which he underwent ultrasound thyroid on June 05, 2020 which showed thyroid is normal in appearance ,few slightly prominent cervical chain and mandibular lymph nodes with preserved fatty lynn. His past medical history significant for history of esophageal stricture status post esophageal dilation in 2019. History of smoking, smoked 1 pack a day, colonoscopy was done on March 01, 2016 Came for follow-up, denies any specific complaints, no fever chills, no nausea or vomiting, no diarrhea constipation, no night sweats, no weight loss, no recurrent fever, no peripheral lymphadenopathy, no abdominal fullness, no generalized weakness or fatigue. Medications: Advair Diskus 1 Puff(s) (of 500-50 mcg/dose) Aerosol Powder, Breath Activated Inhalation b.i.d., Gabapentin 1 Tablet (of 600 mg) Oral t.i.d., Ketorolac Tromethamine 1 Tablet (of 10 mg) Oral PRN, Lisinopril 1 Tablet (of 20 mg) Oral daily, Meloxicam 1 Tablet (of 15 mg) Oral daily, Metoprolol Succinate ER 1.5 Tablet Tablet SR 24 HR Oral daily, Omeprazole 1 Capsule (of 20 mg) Capsule Delayed Release Oral daily, Simvastatin 1 Tablet (of 20 mg) Oral daily, tiZANidine HCl 1 Tablet (of 4 mg) Oral PRN, Triamterene-HCTZ 1 Tablet (of 37.5-25 mg) Oral daily, Ventolin HFA 1 Puff(s) (of 108 (90 base) mcg/act) Aerosol, solution Inhalation PRN Allergies: Morphine Sulfate Review of Systems: Review of Systems is not available for this patient. Vital Signs: Performed on Aug 19, 2020 16:02 Weight - 202.2 lbs (HIGH) BSA - 0.00 sq.m BMI - 0.00 Temperature - 96.8 F (LOW) Pulse - 73 /min Respiration - 18 /min BP - 121/82 mm(hg) O2 Sat - 98 % Pain - 0 Fatigue - 6 Performance Status: 0 - Fully active, able to carry on all predisease activities without restrictions. (ECOG) Physical Examination: ENMT - No mouth sores, no thrush, no jaundice no cervical lymphadenopathy, Respiratory - Lungs are clear to auscultation, Cardiovascular - Regular rate and rhythm of heart, Abdomen - Soft, bowel sounds present, Extremities - No visible edema or rash. Lab/Imaging: Most recent lab results are not available for this patient. Impression: Leukocytosis/lymphocytosis as per labs done on May 16, 2020 his white blood count was 13.7, hemoglobin 14 point hematocrit 42.3 platelets 230,000 with absolute lymphocyte count 6600 and ultrasound next done on June 05, 2020 shows a few slightly prominent but normal-appearing submandibular and cervical chain lymph nodes with preserved fatty lynn otherwise no abnormality seen Patient has history of leukocytosis since March 2017, was followed by oncologist in [place], on 6 monthly basis with lab work-up, as per patient no bone marrow evaluation or any scan was done and he was told everything is fine. Chronic smoking 1 pack a day for more than 35 years Arthritis Esophageal stricture status post dilatation x2 in 2018. Last colonoscopy was in March 2016 Plan: Discussed with patient regarding his labs white blood count 15.2, Absolute lymphocyte count 7500, hemoglobin 13.9 hematocrit 42.3 platelets 231,000 CMP within normal limits including LDH Clinically, patient doing well with no new signs symptoms history of disease progression no evidence of peripheral lymphadenopathy, no organomegaly, follow-up CBC shows mild leukocytosis/lymphocytosis comprehensive metabolic panel within normal range including LDH, will continue to monitor return to clinic in 6 months with CBC CMP and LDH Signed By: Selene Jimenez M.D. <<Signature on File>>
== END 2020-08-19 14:00 | disposition home or self-care (01) ==
LOC: ONCMED 14:02
PROVIDERS: PCP Nurse Practitioner Family; Visit Provider Internal Medicine Hematology & Oncology
DX: D72.820 Lymphocytosis (symptomatic) (principal); F17.210 Nicotine dependence, cigarettes, uncomplicated; M19.90 Unspecified osteoarthritis, unspecified site; K22.2 Esophageal obstruction; Z79.899 Other long term (current) drug therapy
CPT/HCPCS: 36415; 80053; 83615; 85025; 99214

== ENCOUNTER → 2020-10-17 12:50 | Outpatient (BNVA) | payer MEDICARE, MEDICAID, SELFPAY | PROVIDERS: PCP Nurse Practitioner Family; Visit Provider Internal Medicine | DX: Z01.812 Encounter for preprocedural laboratory examination (principal); Z20.822 Contact with and (suspected) exposure to COVID-19 | CPT/HCPCS: 87635 ==

== ENCOUNTER 2020-10-31 09:20 | Outpatient (CLI) | payer MEDICARE, MEDICAID, SELFPAY ==
--- NOTE | 2020-10-31 09:27 | MR_ITS ---
WS: [id number] MRI BRAIN WITH HIGH-RESOLUTION IMAGING THROUGH THE INTERNAL AUDITORY CANALS WITHOUT AND WITH CONTRAST HISTORY: HEARING LOSS;WORSE ON RIGHT COMPARISON: None available. TECHNIQUE: Multiplanar, multisequence imaging is performed through the brain. Additional 3 mm imaging performed in multiple planes through the internal auditory canal. Postcontrast imaging with 20 ml's of MultiHance. No acute intracranial hemorrhage, midline shift, edema or mass effect. Single focus of subcortical white matter disease in the LEFT frontal lobe. Very nonspecific. No prior infarcts. Ventricles and extra-axial spaces are normal. No inferior displacement of cerebellar tonsils. Clivus and pituitary gland are normal. Internal and external auditory canals: Unremarkable. Cranial nerves VII and VIII complexes: Unremarkable. No enhancement or mass. Cerebellopontine angles: Normal. Paranasal sinuses: Normal. Mastoid air cells: Normal. Calvarium and scalp: Normal. Visualized [facility] [facility] [place] [facility] [place] and dural venous sinuses demonstrate no abnormality. MR/MR iac's wo/w con* [id number] IMPRESSION: Normal MRI IACs.
[2020-10-31] MEDS: gadobenate dimeglumine 20 mL vial IV (13:51)
== END 2020-10-31 09:21 | disposition home or self-care (01) ==
LOC: RADSHAW 09:24
PROVIDERS: PCP Nurse Practitioner Family; Visit Provider Otolaryngology
DX: H91.93 Unspecified hearing loss, bilateral (principal)
CPT/HCPCS: 70553; A9577

== ENCOUNTER → 2020-12-26 08:43 | Outpatient (BNVA) | payer MEDICARE, MEDICAID, SELFPAY | PROVIDERS: PCP Nurse Practitioner Family; Visit Provider Orthopaedic Surgery | DX: M54.2 Cervicalgia (principal); M43.12 Spondylolisthesis, cervical region | CPT/HCPCS: 72050 ==

== ENCOUNTER → 2020-12-31 09:32 | Outpatient (BNVA) | payer MEDICARE, MEDICAID, SELFPAY | PROVIDERS: PCP Nurse Practitioner Family; Referring Provider Orthopaedic Surgery; Visit Provider Anesthesiology Pain Medicine | DX: G89.29 Other chronic pain (principal); M47.816 Spondylosis without myelopathy or radiculopathy, lumbar region; M48.061 Spinal stenosis, lumbar region without neurogenic claudication; M51.16 Intervertebral disc disorders with radiculopathy, lumbar region; M54.2 Cervicalgia; M79.603 Pain in arm, unspecified; M79.604 Pain in right leg; M79.605 Pain in left leg; F17.200 Nicotine dependence, unspecified, uncomplicated; Z79.891 Long term (current) use of opiate analgesic | CPT/HCPCS: 99214 ==

== ENCOUNTER → 2021-01-27 12:14 | Outpatient (BNVA) | payer MEDICARE, MEDICAID, SELFPAY | PROVIDERS: PCP Nurse Practitioner Family; Referring Provider Nurse Practitioner Family; Visit Provider Nurse Practitioner | DX: R42 Dizziness and giddiness (principal); I95.1 Orthostatic hypotension | CPT/HCPCS: 99204 ==

== ENCOUNTER → 2021-01-29 13:04 | Outpatient (BNVA) | payer MEDICARE, MEDICAID, SELFPAY | PROVIDERS: PCP Nurse Practitioner Family; Visit Provider Anesthesiology Pain Medicine | DX: M54.12 Radiculopathy, cervical region (principal); Z79.891 Long term (current) use of opiate analgesic; F17.200 Nicotine dependence, unspecified, uncomplicated | CPT/HCPCS: 62321; J1100 ==

== ENCOUNTER 2021-02-03 10:56 | Outpatient (CLI) | payer MEDICARE, MEDICAID, SELFPAY ==
--- NOTE | 2021-02-03 11:07 | US_ITS ---
WS: [id number] RIGHT UPPER QUADRANT ULTRASOUND HISTORY: EPIGASTRIC ABDOMINAL PAIN COMPARISON: None available. Liver: 18.2 cm in length. Mildly enlarged liver. Heterogeneity throughout the liver with no mass or b ile duct dilatation. Subtle area of decreased attenuation near the ambreen hepatis may be an area of he patic steatosis. Normal hepatic and portal vein flow. Gallbladder: Normally distended gallbladder with no stones or wall thickening. CBD: 0.4 cm Pancreas: Not well visualized. Right kidney: 10.2 cm in length. Normal size and echogenicity. No hydronephrosis or mass. Aorta and IVC: Unremarkable abdominal aorta and IVC. No ascites. US/US abdomen limited [id number] IMPRESSION: 1. Normal gallbladder. 2. Area of decreased echogenicity near the ambreen hepatis. Nonspecific in appea jeffrey. This may be an area of hepatic steatosis. Early neoplasm not excluded. C onsider follow-up CT of the abdomen and pelvis with IV and oral contrast for fu rther evaluation. 3. Nonvisualization of the pancreas.
== END 2021-02-03 10:57 | disposition home or self-care (01) ==
LOC: RAD 10:59
PROVIDERS: PCP Nurse Practitioner Family; Visit Provider Nurse Practitioner Family
DX: R10.13 Epigastric pain (principal)
CPT/HCPCS: 76705

== ENCOUNTER → 2021-02-12 10:02 | Outpatient (BNVA) | payer MEDICARE, MEDICAID, SELFPAY | PROVIDERS: PCP Nurse Practitioner Family; Visit Provider Anesthesiology Pain Medicine | DX: G89.29 Other chronic pain (principal); M47.816 Spondylosis without myelopathy or radiculopathy, lumbar region; M51.16 Intervertebral disc disorders with radiculopathy, lumbar region; M79.604 Pain in right leg; M79.605 Pain in left leg; Z79.891 Long term (current) use of opiate analgesic; M54.2 Cervicalgia | CPT/HCPCS: 99214 ==

== ENCOUNTER 2021-02-25 13:28 | Outpatient (CLI) | payer MEDICARE, MEDICAID, SELFPAY ==
--- NOTE | 2021-02-25 | CT_ITS ---
WS: [id number] CT scan of the abdomen and pelvis with Oral and IV contrast. Additional two-dimensional coronal and s agittal reconstruction was performed. 02/25/2021 Clinical Data: ABNORMAL ABDOMINAL IMAGING Comparison: Right upper quadrant ultrasound, 02/03/2021 DLP: 1105.[address] scans at [facility] use at least one of these dose optimization techniques: automated e xposure control; mA and/or kV adjustment per patient size (includes targeted exams where dose is matc hed to clinical indication); or iterative reconstruction. Findings: The lower lungs show no nodules, masses or effusions. The liver, gallbladder, spleen, adrenal glands and pancreas are normal. The ambreen hepatis shows no ab normalities. The portal vein demonstrates normal flow. The kidneys show equal bilateral contrast excretion with a small inferior left renal cyst but no mass es, hydronephrosis or renal calculi. The abdominal aorta is normal in size. No appendicitis or diverticulitis is seen. Oral contrast is in the small bowel and colon and there is no bowel dilatation. No abscess, adenopathy, ascites, mass, obstruction or free air is seen. The bladder is unremarkable. There is a fat-containing right inguinal hernia. The bones of the pelvi s and hips are normal. There is osteoarthritis and degenerative disc disease of the lower thoracic ve rtebral bodies and all the lumbar vertebral bodies. There is a dextroscoliosis of the lumbar spine. CT/CT abdomen pelvis w con* [id number] Impression: 1. Negative for acute intra-abdominal or pelvic abnormalities. 2. No abnormalities of the ambreen hepatis or pancreas were seen.
[2021-02-25 15:38] LABS: Blood Urea Nitrogen 21 mg/dL (6-20)
[2021-02-25 15:39] LABS: Glomerular Filtration Rate 56.7 mL/min (90-130)
[2021-02-25] MEDS: iodixanol 320 mg/mL 100mL Btl IV (16:15)
[2021-02-25] MEDS: iohexol 300 mg/mL 50 mL Btl PO (16:16)
== END 2021-02-25 13:29 | disposition home or self-care (01) ==
PROVIDERS: PCP Nurse Practitioner Family; Visit Provider Nurse Practitioner Family
DX: R93.5 Abnormal findings on diagnostic imaging of other abdominal regions, including retroperitoneum (principal)
CPT/HCPCS: 74177; 82565; 84520; Q9967

== ENCOUNTER 2021-03-10 18:27 | Emergency (ER) | payer MEDICARE, MEDICAID, SELFPAY ==
[2021-03-10 18:41] VITALS: BP 127/86; PULSE 76; RESP 16; TEMP 36.8; O2SAT 96; BMI 33.7
--- NOTE | 2021-03-10 19:10 | ED_ITS ---
HPI - Extremity Problem General: Chief complaint: Extremity Problem,Nontraumatic Stated complaint: Rt Should Pain No Injury Time Seen by Provider: 03/10/21 19:07 History of Present Illness: HPI Narrative: 60-year-old male patient comes in today with complaints of right anterior shoulder pain. Patient reports pain for the last 2 days. Patient appears well. Patient appears in mild to moderate pain with exacerbation of pain with movement of the shoulder. Patient denies any recent injury. Review of Systems General: Reports: 10 or more systems reviewed and unremarkable except in HPI and below Musc: Reports: other (Right shoulder pain) PFS ED PFSH: Social History Alcohol intake: current Alcohol intake frequency: other Lives independently: Yes History of recent travel: Yes Details: recently moved from [place] Out of state: Yes Physical Exam Const: COMMON NORMALS: patient oriented x3 GENERAL APPEARANCE: cooperative HENMT: COMMON NORMALS: normocephalic HEAD & SCALP: normocephalic Eye: GENERAL EYE: appearance normal, both eyes and all related structures Neck/C-Spine: OTHER: No tenderness of the cervical spine, patient has some reduction in range of motion of the spine most likely due to degenerative changes. No pain is noted with movement of the spine. Chest: COMMONS NORMALS: normal inspection of the chest Resp: COMMON NORMALS: normal respiratory effort EFFORT & INSPECTION: Yes able to speak in complete sentences Cardio: COMMON NORMALS: regular rate and regular rhythm RATE: regular rate RHYTHM: regular rhythm GI: COMMON NORMALS: non-tender : COMMON NORMALS: Yes no CVA tenderness BLADDER/KIDNEY EXAM: Yes no CVA tenderness Back/Pelvis: COMMON NORMALS: no CVA tenderness and thoracic and lumbar spine normal to inspection Extremity: NARRATIVE EXTREMITY EXAM: Exacerbation of pain with abduction and abduction of the shoulder. Patient also has limited range of motion due to discomfort. Distal pulses and sensation are intact. Neuro: COMMON NORMALS: patient oriented x3 and moves all extremities Psych: COMMON NORMALS: mental status grossly normal and cooperative Skin: COMMON NORMALS: no rashes or lesions noted GENERAL SKIN EXAM: no rashes or lesions noted Course Vital Signs: Vital signs: Vital Signs Temperature 98.3 F 03/10/21 18:41 Pulse Rate 76 03/10/21 18:41 Respiratory Rate 16 03/10/21 18:41 Blood Pressure 127/86 03/10/21 18:41 Pulse Oximetry 96 03/10/21 18:41 MDM - Extremity (Nontraumatic) MDM Narrative: Medical decision making narrative: 60-year-old male patient comes in today with some right shoulder pain. On exam patient has palpable tenderness in the AC joint, and in the anterior aspect of the right shoulder. Pain is elicited with range of motion of the shoulder. Distal pulses and sensation are intact. No signs of injuries noted. Differential diagnosis includes not limited to frozen shoulder syndrome, rotator cuff impingement, osteoarthritis. Patient was given a dose of ketorolac 30 mg IM and 10 mg of dexamethasone. Patient was informed to continue with routine medications as directed. Encourage plenty of fluids and follow-up with primary care for further instructions. Did request case management to help patient with follow- up with orthopedist for further evaluation and treatment if this is due to frozen shoulder syndrome or rotator cuff injury patient may need to have physical therapy for further treatment. Patient reported understanding and agreed to plan. Discharge Plan Discharge Patient Disposition: Home Clinical Impression: Localized pain of right shoulder joint Condition: Stable Prescriptions: No Action omeprazole 20 mg capsule,delayed release(DR/EC) 20 mg PO DAILY RF: 0 aspirin [Adult Aspirin Regimen] 81 mg tablet,delayed release (DR/EC) 81 mg PO DAILY RF: 0 gabapentin 600 mg tablet 600 mg PO TID RF: 0 triamterene-hydrochlorothiazid 37.5-25 mg capsule 1 cap PO DAILY RF: 0 simvastatin 20 mg tablet 20 mg PO DAILY RF: 0 tizanidine [Zanaflex] 4 mg tablet 4 mg PO TID PRN (Reason: Muscle Spasm) RF: 0 metoprolol succinate 50 mg tablet extended release 24 hr 50 mg PO DAILY RF: 0 lisinopril 20 mg tablet 20 mg PO DAILY RF: 0 meloxicam 15 mg tablet 15 mg PO DAILY RF: 0 fluticasone propion-salmeterol [Advair Diskus] 500-50 mcg/dose blister with device 1 inh inhalation BID RF: 0 albuterol sulfate [Ventolin HFA] 90 mcg/actuation HFA aerosol inhaler 2 puff inhalation Q6H PRN (Reason: Dyspnea) RF: 0 prednisone 20 mg tablet 20 mg PO DAILY Qty: 15 RF: 0 hydrocodone-acetaminophen 5-325 mg tablet 1 - 2 tab PO .Q4-6H PRN (Reason: pain) 7 Days Qty: 40 RF: 0 prednisone 20 mg tablet 20 mg PO DAILY Qty: 15 RF: 0 Discharge Orders: Discharge ED (Routine); Ordered 03/10/21 Ordered By: Michael Damon Referrals: Tai Moser NP [Primary Care Provider] - Discharge Diet: Usual diet Discharge Activity: Increase activity as tolerated Patient Instructions: Shoulder Pain (ED) Activity Restrictions/Additional Instructions: Continue with routine medications. You can use acetaminophen for further pain control. Try to use the shoulder as much as possible. Follow-up with primary care or orthopedist for further instruction and evaluation. Return to the ER for new concerns. Case management will contact you with assistance to follow-up with orthopedics office. Coding Level of Care Code ED Construction Skills Teacher for Axel Stack Exam Comprehensive
--- NOTE | 2021-03-10 19:23 | XRR_ITS ---
PROCEDURE INFORMATION: Exam: XR Right Shoulder Exam date and time: 03/10/2021 7:23 PM Age: 60 years old Clinical indication: Pain; Shoulder; Right TECHNIQUE: Imaging protocol: XR Right shoulder. Views: 2 or more views. COMPARISON: No relevant prior studies available. FINDINGS: Bones/joints: Moderate acromioclavicular joint osteoarthritis. Soft tissues: Normal. XR/XR shoulder RT min 2V* 99390 IMPRESSION: Moderate acromioclavicular joint osteoarthritis.
[2021-03-10] MEDS: ketorolac 30 mg/mL INJ IM (19:37)
[2021-03-10] MEDS: dexamethasone 10 mg/mL INJ IM (19:37)
--- NOTE | 2021-03-12 09:10 | DCPLANNER ---
safety manager had message to schedule a follow up appointment for patient with ortho. safety manager called the ortho clinic, spoke with Cara, gave clinic patients information. safety manager was told that patients information would be printed and reviewed. Clinic will call patient with appointment information.
--- NOTE | 2021-03-14 08:02 | DCPLANNER ---
Addendum entered by Noni Bergeron 05/23/21 12:34: Patient had a follow up appointment scheduled for 05.12.[address] Cazares at [facility] - patient did attend appointment. Original Note: Patient has a follow up appointment scheduled for Wednesday, May 12, 2021 at 11:[address] Cazares. Clinic will call patient with appointment information.
== END 2021-03-10 19:51 | disposition home or self-care (01) ==
PROVIDERS: Emergency Provider Nurse Practitioner Family; PCP Nurse Practitioner Family
DX: M25.511 Pain in right shoulder (principal); Z79.82 Long term (current) use of aspirin
CPT/HCPCS: 73030; 96372; 99283; J1100; J1885

== ENCOUNTER 2021-03-19 11:44 | Outpatient (CLI) | payer MEDICARE, MEDICAID, SELFPAY ==
[2021-03-19 12:41] LABS: Hematocrit 43.6 % (42.0-52.0); Hemoglobin 14.2 g/dL (11.7-16.6); Mean Corpuscular HGB Conc 32.6 g/dL (30.0-36.0); Mean Corpuscular Hemoglobin 28.2 pg (28.0-34.0); Mean Corpuscular Volume 86.5 fl (80-94); Mean Platelet Volume 11.2 fL (7.4-10.4); Platelet Count 198 10^3/cmm (130-400); Red Blood Count 5.04 10^6/uL (4.1-5.3); Red Cell Distribution Width 14.2 % (12.1-15.1); White Blood Count 18.7 10^3/uL (4.0-10.0)
[2021-03-19 13:06] LABS: Alanine Aminotransferase 14 U/L (0-41); Albumin Level 3.8 g/dL (3.5-5.2); Alkaline Phosphatase 85 IU/L (40-130); Blood Urea Nitrogen 20 mg/dL (6-20); Calcium 8.3 mg/dL (8.5-10.5); Carbon Dioxide 22 mmol/L (22-29); Chloride 102 mmol/L (98-107); Glomerular Filtration Rate 68.8 mL/min (90-130); Glucose 93 mg/dL (65-115); Osmolality Calculated 278 mOsm/kg (285-295); Sodium 133 mmol/L (136-145); Total Bilirubin 0.2 mg/dL (0.15-1.2); Total Protein 5.8 g/dL (6.6-8.7)
[2021-03-19 13:07] LABS: Anion Gap 13.7 (5-19); Aspartate Amino Transferase 15 U/L (0-40); Lactate Dehydrogenase 259 U/L (135-225); Potassium 4.7 mmol/L (3.5-5.1)
[2021-03-19 13:18] LABS: Absolute Eosinophils 0.1 10^3/cmm (0.0-0.7); Eosinophils 1 %; Lymphocytes 18 %; Lymphocytes Absolute 5.2 10^3/cmm (1.2-3.4); Monocytes Absolute 1.3 10^3/cmm (0.1-0.6); Platelet Estimate Normal (Normal); Segmented Neutrophils 64 %; Total Cells Counted 100 (0-100)
--- NOTE | 2021-03-19 13:47 | ONC FU_ITS ---
Dr. Jimenez follow up note Patient: Sadi Paniagua Jr Unit #: [id number]: 1960 Dicatated By: Selene Jimenez M.D.Date of Visit:Mar 19, 2021 Onc Med Follow-up/Prog Note History of Present Illness: Mr. Siva Avitia, is a 59-year-old gentleman with a history of leukocytosis since 2018, as per patient that was the first time he saw oncologist in [place] and he was told everything was fine and he used to see his oncologist every 6 months with lab work-up and last time he saw him in January 2019 as in June 2019 he moved to [facility] because of low cost of living. Patient never had bone marrow evaluation done never had CT scan done, His lab work-up done in his PMDs office on May 16, 2020 showed white blood count 13.7 hemoglobin 14.3 hematocrit 42.3 platelets 230,000 with lymphocytes 48% neutrophil 41% absolute lymphocyte count 6600., PSA was 2 patient denies any night sweats denies any weight loss denies any abdominal fullness denies any recurrent fever, denies any peripheral lymphadenopathy except recently his new PMD noted some right submandibular/neck lymph nodes, for which he underwent ultrasound thyroid on June 05, 2020 which showed thyroid is normal in appearance ,few slightly prominent cervical chain and mandibular lymph nodes with preserved fatty lynn. His past medical history significant for history of esophageal stricture status post esophageal dilation in 2019. History of smoking, smoked 1 pack a day, colonoscopy was done on March 01, 2016 Abdominal sonogram ordered by PMD was done on February 03, 2021 showed variable degrees echodensity near the ambreen hepatis and impression was either hepatic steatosis or early neoplasm, so CT scan of abdomen pelvis was recommended which was done on February 25, 2021 shows no lymphadenopathy no abnormality of ambreen hepatis or pancreas were seen, no splenomegaly. Came for follow-up, denies any specific complaints, no fever chills, no nausea or vomiting, no diarrhea constipation, no melena hematochezia, no night sweats, no weight loss, no recurrent fever, no peripheral lymphadenopathy, no abdominal fullness, no jaundice Medications: Advair Diskus 1 Puff(s) (of 500-50 mcg/dose) Aerosol Powder, Breath Activated Inhalation b.i.d., Gabapentin 1 Tablet (of 600 mg) Oral t.i.d., Ketorolac Tromethamine 1 Tablet (of 10 mg) Oral PRN, Lisinopril 1 Tablet (of 20 mg) Oral daily, Meloxicam 1 Tablet (of 15 mg) Oral daily, Metoprolol Succinate ER 1.5 Tablet Tablet SR 24 HR Oral daily, Omeprazole 1 Capsule (of 20 mg) Capsule Delayed Release Oral daily, Simvastatin 1 Tablet (of 20 mg) Oral daily, tiZANidine HCl 1 Tablet (of 4 mg) Oral PRN, Triamterene-HCTZ 1 Tablet (of 37.5-25 mg) Oral daily, Ventolin HFA 1 Puff(s) (of 108 (90 base) mcg/act) Aerosol, solution Inhalation PRN Allergies: Morphine Sulfate Review of Systems: Review of Systems is not available for this patient. Vital Signs: Performed on Mar 19, 2021 13:43 Weight - 208.4 lbs (HIGH) BSA - 0.00 sq.m BMI - 0.00 Temperature - 97.9 F (LOW) Pulse - 75 /min Respiration - 18 /min BP - 157/93 mm(hg) (HIGH) O2 Sat - 97 % Pain - 0 Fatigue - 4 Performance Status: 0 - Fully active, able to carry on all predisease activities without restrictions. (ECOG) Physical Examination: ENMT - No mouth sores, no thrush, no jaundice no cervical or axillary lymphadenopathy, Respiratory - Lungs are clear to auscultation, Cardiovascular - Regular rate and rhythm of heart, Gastrointestinal - Soft, bowel sounds present, Extremities - No visible edema. Lab/Imaging: Most recent lab results are not available for this patient. Impression: Leukocytosis/lymphocytosis as per labs done on May 16, 2020 his white blood count was 13.7, hemoglobin 14 point hematocrit 42.3 platelets 230,000 with absolute lymphocyte count 6600 and ultrasound next done on June 05, 2020 shows a few slightly prominent but normal-appearing submandibular and cervical chain lymph nodes with preserved fatty lynn otherwise no abnormality seen Patient has history of leukocytosis since March 2017, was followed by oncologist in [place], on 6 monthly basis with lab work-up, as per patient no bone marrow evaluation or any scan was done and he was told everything is fine. Chronic smoking 1 pack a day for more than 35 years Arthritis Esophageal stricture status post dilatation x2 in 2018. Last colonoscopy was in March 2016 Plan: Discussed with patient regarding his labs white blood count 18.7 compared to 15.2 in July 2020 hemoglobin 14.2 g medical 43.6 platelets 198,000 absolute lymphocyte counts 5200 CMP within normal limits except sodium 133, and LDH is 259 compared to 192 previously Clinically, patient doing well with no new signs symptom suggestive of disease progression his follow-up CBC shows persistent mildly elevated leukocytosis but with a normal hemoglobin and platelet count. Patient had CT scan of abdomen pelvis done in January 2021 which showed no evidence of splenomegaly no lymphadenopathy. Will continue monitor he will return to clinic in 6 months with CBC CMP and LDH, patient was informed to call us early in case he experience any night sweats, unintentional weight loss or Recurrent fever orperipheral lymphadenopathy. Signed By: Selene Jimenez M.D. <<Signature on File>>
== END 2021-03-19 11:45 | disposition home or self-care (01) ==
LOC: ONCMED 11:54
PROVIDERS: PCP Nurse Practitioner Family; Visit Provider Internal Medicine Hematology & Oncology
DX: D72.820 Lymphocytosis (symptomatic) (principal); F17.210 Nicotine dependence, cigarettes, uncomplicated; Z79.899 Other long term (current) drug therapy
CPT/HCPCS: 36415; 80053; 83615; 85007; 85025; 99214

== ENCOUNTER 2021-03-21 08:16 | Outpatient (CLI) | payer MEDICARE, MEDICAID, SELFPAY ==
[2021-03-21 08:30] VITALS: BMI 33.7
--- NOTE | 2021-03-21 08:59 | ECG_ITS ---
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 Interpretive Statements NAME OF STUDY: LEXISCAN SESTAMIBI STRESS TEST INDICATION: Atypical Chest Pain PROCEDURE: At the baseline, the blood pressure was 111/78 mmHg, oxygen saturation 94% with a heart rate of of 77 bpm. The electrocardiogram showed normal sinus rhythm, normal axis with nonspecific T wave inversion in lead III. The Lexiscan was infused over a period of 20 seconds. A total of 0.4 milligrams of Lexiscan was infused. The stress phase was continued for a total of 5 minutes. Heart rate at the end of the stress phase was 113 bpm, oxygen saturation 97% with a blood pressure of 133/91 mmHg. The EKG at the peak infusion revealed sinus tachycardia with nonspecific T wave inversion in lead III and aVF. The study was terminated to protocol completion. Sestamibi was injected 20 seconds after the Lexiscan infusion. Blood pressure at the end of the recovery phase was 120/78 mmHg, oxygen saturation 95% with a heart rate of 101 beats per minute. CONCLUSION: 1. No significant EKG changes with the LexiScan infusion. 2. No LexiScan induced chest pain or cardiac arrhythmia. 3. Normal blood pressure and heart rate response. 4. Sestamibi/sestamibi perfusion scan pending; see separate report. Electronically Signed On 03-25-2021 18:02:16 CONCRETE POINTER by Yen Leone M.D. [id number]
--- NOTE | 2021-03-21 09:00 | NMCV_ITS ---
NM jennifer perf SPECT r/s* [id number] Sadi Paniagua Jr Age: 60 Gender: M : 1960 Exam Date: 03/21/2021 09:28 Ordering Phys: Tai Moser NP Technologist: SANTIAGO Caruso Exam Location: [facility] Indications: CHEST PAIN STRESS TEST [facility] IMAGE PROTOCOL Rest/Stress 1 Lexiscan Day Radiopharmaceutical Dose (mCi) Administration Site Administered by Rest: Tc-99m 10.8 IV SANTIAGO Interiano Sestamibi Stress:Tc-99m 32.4 IV SANTIAGO Interiano Sestamibi Rest: 21-Mar-2021 60 Discovery 630 Stress: 21-Mar-2021 30 Discovery 630 0.4mg Lexiscan. Images obtained in supine and prone position. SPECT RESULTS Technical Quality: Excellent Raw Data Analysis: Normal Image Corrections: No attenuation or motion correction applied Summed Stress Score: 1 Summed Rest Score: 5 Summed Difference Score: 0 PERFUSION FINDINGS Small sized perfusion abnormality of mild severity of basal to mid inferior, mid inferolateral, apical lateral and apical rodriguez on rest images with somwhat improved tracer uptake in inferolateral rodriguez on stress images. FUNCTIONAL RESULTS (calculated via Gated SPECT) Stress Image LV EF (%): 50 Stress EDV (mL):105 TID: 1.11 Stress ESV (mL):52 FUNCTIONAL FINDINGS: The left ventricle is normal in size. Transient Ischemia Dilatation of 1.1. The left ventricular ejection fraction is mildly reduced with a value of 50%. There is hypokinesis of mid to apical inferior rodriguez. IMPRESSIONS 1. Small sized perfusion abnormality of mild severity of basal to mid inferior, apical lateral and apical rodriguez. 2. This may represent old myocardial infarction in right coronary artery territory or attenuation artifact. 3. The left ventricular ejection fraction is mildly reduced with a value of 50%. 4. There is hypokinesis of mid to apical inferior rodriguez. 5. No coronary ischemia based on this study. Yen Leone MD (Electronically Signed) Final Date: 25 March 2021 08:34 S
[2021-03-21] MEDS: regadenoson 0.4 Mg/5 ml Syringe IVP (10:19)
[2021-03-21 10:37] VITALS: BP 120/78; PULSE 99
== END 2021-03-21 08:17 | disposition home or self-care (01) ==
LOC: CDL 08:18
PROVIDERS: PCP Nurse Practitioner Family; Visit Provider Nurse Practitioner Family
DX: R07.89 Other chest pain (principal)
CPT/HCPCS: 78452; 93017; A9500; J2785

== ENCOUNTER 2021-04-07 09:02 | Inpatient (IN) | payer MEDICARE, MEDICAID, SELFPAY ==
[2021-04-07] VITALS (27 sets, daily range): BP systolic 70–126; BP diastolic 46–76; PULSE 77–118; RESP 15–28; TEMP 36.6; O2SAT 91–98; BMI 31.4
[2021-04-07] MEDS: sodium chloride 0.9% 1,000 ML 999 ML IV ×2 (10:06→11:07)
--- NOTE | 2021-04-07 10:17 | XR_ITS ---
WS: [id number] PORTABLE CHEST HISTORY: dyspnea/cough COMPARISON: None available. Interstitial thickening and scattered opacifications bilaterally. Very mild opacification with inter stitial thickening in the mid and lower RIGHT lung and throughout the LEFT lung. Slightly greater opa cifications developing at the LEFT lung base. No pleural effusion or pneumothorax. Cardiac size: Normal. Mediastinum/Aorta: Normal mediastinum. No osseous abnormality seen. XR/XR chest 1V portable [id number] IMPRESSION: Bilateral bilateral mild pulmonary opacifications, consider pneumonitis and Cov id pneumonia.
--- NOTE | 2021-04-07 10:17 | ECG_ITS ---
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 Measurements Intervals [place] Rate: 89 P: 49 MI: 140 QRS: 61 QRSD: 88 T: 36 QT: 309 QTc: 378 Interpretive Statements SINUS RHYTHM No previous ECG available for comparison Electronically Signed On 04-07-2021 13:22:13 SENIOR ERP CONSULTANT by Yen Leone M.D. [id number]
[2021-04-07 10:26] LABS: Basophils % 0.2 %; Eosinophils # 0.1 10^3/uL (0.0-0.8); Eosinophils % 0.7 %; Hemoglobin 13.9 g/dL (11.7-16.6); Lymphocytes # 3.6 10^3/uL (0.8-4.8); Lymphocytes % 17.7 %; Mean Corpuscular HGB Conc 31.6 g/dL (30.0-36.0); Mean Corpuscular Hemoglobin 28.3 pg (28.0-34.0); Mean Corpuscular Volume 89.6 fl (80-94); Mean Platelet Volume 11.6 fL (7.4-10.4); Monocytes % 4.9 %; Neutrophils # 15.43 10^3/uL (1.8-7.7); Neutrophils % 75.3 %; Nucleated Red Blood Cells % 0 %; Platelet Count 375 10^3/cmm (130-400); Red Blood Count 4.91 10^6/uL (4.1-5.3); Red Cell Distribution Width 15.5 % (12.1-15.1); White Blood Count 20.5 10^3/uL (4.0-10.0)
--- NOTE | 2021-04-07 10:29 | W.ED.SKABFB ---
HPI - Skin/Abscess/Foreign Bdy General: Chief complaint: Skin/Abscess/Foreign Body Stated complaint: Testicular Rash Time Seen by Provider: 04/07/21 09:43 Source: patient Mode of arrival: wheelchair History of Present Illness: 60-year-old male presents emergency room his biggest complaint is a rash in his groin. He is very focused on that he is mildly confused. Denies any fever sweats chills chest pain or abdominal pain. He has been having diarrhea extensively for the last week. Denies any hematochezia. MD complaint: rash Onset (ago): day(s) Severity: moderate Quality: burning Pain Consistency: constant Relieving factors: none Exacerbating factors: movement Context: none Associated symptoms: Reports chills and nausea; Deny arthralgias, cough, fever(s), itching, myalgias, rigidity, short of breath or vomiting Treatments prior to arrival: none Review of Systems Const: Reports: chills; Denies: fever(s) ENMT: Denies: throat pain, ear or mastoid pain, nasal discharge or nasal congestion Card: Denies: chest pain, edema, dyspnea on exertion or orthopnea Resp: Denies: dyspnea, productive cough or non-productive cough GI: Reports: nausea, diarrhea and GI cramping; Denies: vomiting : Denies: flank pain, dysuria, urinary frequency or urinary urgency Skin/Breast: Reports: rash, pruritus and erythema PFSH ED PFSH: Medical History Chronic back pain GERD (gastroesophageal reflux disease) History of esophageal dilatation History of hypertension History of sciatica Hyperlipidemia Scoliosis Surgical History History of appendectomy History of hernia repair History of lumbar laminectomy Social History Alcohol intake: current Alcohol intake frequency: other Lives independently: Yes History of recent travel: Yes Details: recently moved from [place] Out of state: Yes Physical Exam Const: GENERAL APPEARANCE: cooperative and comfortable ORIENTATION/CONSCIOUSNESS: Yes awake HENMT: COMMON NORMALS: normocephalic, atraumatic, hearing grossly normal bilaterally, external ears normal, EAC's normal, TM's normal bilaterally, Normal nasal mucous membranes and turbinates present, moist oral mucous membranes and oropharynx normal HEAD & SCALP: normocephalic and atraumatic NOSE: Normal nasal mucous membranes and turbinates present EXTERNAL EAR: Yes external ears normal EXTERNAL AUDITORY CANAL: EAC's normal TYMPANIC MEMBRANE: TM's normal bilaterally Eye: COMMON NORMALS: Equal, round and reactive pupils present, EOMs intact bilaterally, conjunctivae normal and no scleral icterus CONJUNCTIVA: Yes conjunctivae normal PUPIL: Yes Equal, round and reactive pupils present Neck/C-Spine: COMMON NORMALS: no JVD Resp: COMMON NORMALS: normal respiratory effort, No retractions, No use of accessory muscles and clear to auscultation bilaterally AUSCULTATION: clear to auscultation bilaterally Cardio: COMMON NORMALS: no JVD, regular rate, regular rhythm and No murmurs present (Cardio) RATE: regular rate RHYTHM: regular rhythm GI: COMMON NORMALS: Soft to palpation and No hepatosplenomegaly present AUSCULTATION: Yes normoactive bowel sounds PALPATION: Yes Soft to palpation, No Tenderness to palpation present (GI), No Guarding due to palpation present (GI) and Yes No hepatosplenomegaly present Extremity: COMMON NORMALS: normal to inspection, capillary refill normal, no clubbing, cyanosis or edema, no calf tenderness and no pedal edema Skin: OTHER: Severe tinea rash of the groin and scrotum. Groin creases bilaterally excoriated superficial denuding of the skin. No purulent drainage some mild serous drainage. Localized erythema of the edges. Course Vital Signs: Vital signs: Vital Signs Temperature 97.9 F 04/07/21 09:13 Pulse Rate 87 04/08/21 06:30 Respiratory Rate 16 04/08/21 04:00 Blood Pressure 97/62 04/08/21 06:30 Pulse Oximetry 97 04/08/21 06:30 MDM - Skin/Abscess/Foreign Bdy Medicial Decision Making Severely peaked T waves on EKG no acute ST changes patient metabolic acidosis with an elevated anion gap and hyperkalemia due to his diarrhea. His skin rash is really a secondary issue. Initiate treatments for hyperkalemia discussed with nephrology and with hospitalist. Medical Records I reviewed the patient's medical records. Lab Data I reviewed the patient's lab results. : 04/07/21 09:51 04/07/21 21:38 Radiology Impressions Chest X-Ray 04/07/21 10:17 IMPRESSION: Bilateral bilateral mild pulmonary opacifications, consider pneumonitis and Covid pneumonia. Renal Ultrasound 04/07/21 11:52 IMPRESSION: Normal renal ultrasound. Laboratory Results WBC 20.5 10^3/uL (4.0-10.0) H 04/07/21 09:51 RBC 4.91 10^6/uL (4.1-5.3) 04/07/21 09:51 Hgb 13.9 g/dL (11.7-16.6) 04/07/21 09:51 Hct 44.0 % (42.0-52.0) 04/07/21 09:51 MCV 89.6 fl (80-94) 04/07/21 09:51 MCH 28.3 pg (28.0-34.0) 04/07/21 09:51 MCHC 31.6 g/dL (30.0-36.0) 04/07/21 09:51 RDW 15.5 % (12.1-15.1) H 04/07/21 09:51 Plt Count 375 10^3/cmm (130-400) 04/07/21 09:51 MPV 11.6 fL (7.4-10.4) H 04/07/21 09:51 Neut % (Auto) 75.3 % 04/07/21 09:51 Lymph % (Auto) 17.7 % 04/07/21 09:51 Beaver % (Auto) 4.9 % 04/07/21 09:51 Eos % (Auto) 0.7 % 04/07/21 09:51 Baso % (Auto) 0.2 % 04/07/21 09:51 Neut # (Auto) 15.43 10^3/uL (1.8-7.7) H 04/07/21 09:51 Lymph # (Auto) 3.6 10^3/uL (0.8-4.8) 04/07/21 09:51 Beaver # (Auto) 1.0 10^3/uL (0.2-0.9) H 04/07/21 09:51 Eos # (Auto) 0.1 10^3/uL (0.0-0.8) 04/07/21 09:51 Baso # (Auto) 0.0 10^3/uL (0.0-0.1) 04/07/21 09:51 Nucleated RBC % (auto) 0 % 04/07/21 09:51 Nucleated RBCs # 0.0 /100WBC 04/07/21 09:51 Specimen Type Arterial 04/07/21 10:55 Sample Site Brachial, left 04/07/21 10:55 ABG pH 7.23 (7.35-7.45) L 04/07/21 10:55 ABG pCO2 23.4 mmHg (35-45) L 04/07/21 10:55 ABG pO2 76.9 mmHg (80.0-100.0) L 04/07/21 10:55 ABG HCO3 9.9 mmol/L (22-26) L 04/07/21 10:55 ABG O2 Saturation 92.3 04/07/21 10:55 ABG Base Excess -15.8 mmol/L (-2.0-2.0) L 04/07/21 10:55 Jayden Test Pos 04/07/21 10:55 A-a O2 Gradient 5.7 mmHg (5-10) 04/07/21 10:55 Hematocrit 40.7 % (42-52) L 04/07/21 10:55 Hgb O2 Saturation 91.4 % (95-100) L 04/07/21 10:55 Carboxyhemoglobin < 0.0 %THgb (0.4-20.1) L 04/07/21 10:55 Methemoglobin 1.0 % (0.4-1.5) 04/07/21 10:55 Total Hemoglobin 13.3 g/dL (14-18) L 04/07/21 10:55 Sodium 140.0 mmol/L (131-143) 04/07/21 10:55 Potassium 6.2 mmol/L (3.5-5.0) H 04/07/21 10:55 Glucose 124.0 mg/dL (70-115) H 04/07/21 10:55 Ionized Calcium 1.2 mmol/L (1.1-1.4) 04/07/21 10:55 O2 Delivery Device Room air 04/07/21 10:55 Software Educator ID Broma 04/07/21 10:55 Sodium 144 mmol/L (136-145) 04/07/21 13:22 Potassium 5.4 mmol/L (3.5-5.1) H 04/07/21 13:22 Chloride 118 mmol/L (98-107) H 04/07/21 13:22 Carbon Dioxide 14 mmol/L (22-29) L 04/07/21 13:22 Anion Gap 17.4 (5-19) 04/07/21 13:22 BUN 140 mg/dL (6-20) H* 04/07/21 13:22 Creatinine 6.1 mg/dL (0.7-1.2) H* 04/07/21 13:22 GFR Calculation 9.5 mL/min (90-130) L 04/07/21 13:22 Glucose 92 mg/dL (65-115) 04/07/21 13:22 Calculated Osmolality 343 mOsm/kg (285-295) H 04/07/21 13:22 Lactic Acid 0.9 mmol/L (0.5-2.2) 04/07/21 09:51 Uric Acid 16.1 mg/dL (3.4-7.0) H 04/07/21 09:51 Calcium 9.1 mg/dL (8.5-10.5) 04/07/21 13:22 Total Bilirubin 0.4 mg/dL (0.15-1.2) 04/07/21 09:51 AST 12 U/L (0-40) 04/07/21 09:51 ALT 10 U/L (0-41) 04/07/21 09:51 Alkaline Phosphatase 59 IU/L (40-130) 04/07/21 09:51 Creatine Kinase 95 U/L (39-308) 04/07/21 09:51 Creatine Kinase Cancelled 04/07/21 09:51 Troponin T Baseline 97 ng/L (0-15) H 04/07/21 09:51 Troponin T 120 Minute 76.97 ng/L (0-15) H 04/07/21 11:46 Delta Troponin T -20.03 ABS# (0-10) L 04/07/21 11:46 Total Protein 6.2 g/dL (6.6-8.7) L 04/07/21 09:51 Albumin 3.3 g/dL (3.5-5.2) L 02/07/22 09:51 Globulin 2.9 g/dL (1.3-4.6) 04/07/21 09:51 Urine Color Dark yellow (Yellow) 04/07/21 11:47 Urine Appearance Sl hazy (CLEAR) 04/07/21 11:47 Urine pH 5 (5-7) 04/07/21 11:47 Ur Specific [place] 1.020 (1.005-1.030) 04/07/21 11:47 Urine Protein 1+ (Negative) H 04/07/21 11:47 Urine Glucose (UA) Norm (Normal) 04/07/21 11:47 Urine Ketones 1+ (Negative) H 04/07/21 11:47 Urine Blood 2+ (Negative) H 04/07/21 11:47 Urine Nitrate Negative (Negative) 04/07/21 11:47 Urine Bilirubin 1+ (Negative) H 04/07/21 11:47 Urine Urobilinogen Norm mg/dL (Negative) 04/07/21 11:47 Ur Leukocyte Esterase 2+ (Negative) H 04/07/21 11:47 Urine RBC 5-10 /hpf (0-2) H 04/07/21 11:47 Urine WBC 10-15 /hpf (0-5) H 04/07/21 11:47 Ur Squamous Epith Cells Rare /hpf (0-5) 04/07/21 11:47 Amorphous Sediment 2+ /hpf 04/07/21 11:47 Urine Bacteria 1+ /hpf (NONE) H 04/07/21 11:47 Coarse Granular Casts 5-10 /lpf H 04/07/21 11:47 Ur Random Sodium 46 mmol/L 04/07/21 11:47 Urine Creatinine 376 mg/dL (39-259) H 04/07/21 11:47 Salicylates < 0.3 mg/dL (3-10) L 04/07/21 09:51 Acetaminophen < 5.0 ug/mL (10-30) L 04/07/21 09:51 Ethyl Alcohol < 10 mg/dL (0-10) 04/07/21 09:51 Serum Ketones Negative (Negative) 04/07/21 09:51 Coronavirus 229E (PCR) Not detected (NOT DETECT) 04/07/21 11:00 Hepatitis A IgM Ab Non-reactive (Nonreactive) 04/07/21 09:51 Hep Bs Antigen Non-reactive (Nonreactive) 04/07/21 09:51 Hep B Core IgM Ab Non-reactive (Nonreactive) 04/07/21 09:51 Hepatitis C Antibody Non-reactive (Nonreactive) 04/07/21 09:51 HIV 1&2 Ab & HIV 1 Ag Non-reactive (Non-Reactiv) 04/07/21 09:51 HIV 1&2 Antibody Non-reactive (Non-Reactiv) 04/07/21 09:51 SARS-CoV-2 (PCR) Not detected (NOT DETECT) 04/07/21 11:00 Critical Care Time Critical Care Time: Critical Care Time: Yes Total Critical Care Time: 35 Attestation: The high probability of a clinically significant, sudden or life threatening deterioration of the patient's cardiac and renal (severe hyperkalemia) system(s) required my full and direct attention, intervention and personal management. The critical care time is as shown. This time is in addition to time spent performing any reported procedures but includes the following: [x] Data and vital sign review and interpretation [x] Patient assessment, examination and intervention [x] Documentation [x] Medication orders and management Discharge Plan Discharge Patient Disposition: Admitted As Inpatient Admit Provider: Joshua Jarrett Clinical Impression: Hyperkalemia, Acute kidney injury, Leukocytosis, Hypotension, Diarrhea, Tinea cruris Condition: Stable Coding Level of Care Code ED Automation Qtp Tester for Axel Stack
[2021-04-07 10:35] LABS: Alanine Aminotransferase 10 U/L (0-41); Albumin Level 3.3 g/dL (3.5-5.2); Alkaline Phosphatase 59 IU/L (40-130); Anion Gap 26.9 (5-19); Aspartate Amino Transferase 12 U/L (0-40); Calcium 8.7 mg/dL (8.5-10.5); Carbon Dioxide 12 mmol/L (22-29); Chloride 108 mmol/L (98-107); Globulin 2.9 g/dL (1.3-4.6); Glomerular Filtration Rate 7.2 mL/min (90-130); Glucose 123 mg/dL (65-115); Sodium 140 mmol/L (136-145); Total Bilirubin 0.4 mg/dL (0.15-1.2); Total Protein 6.2 g/dL (6.6-8.7)
[2021-04-07 10:38] LABS: Lactic Sepsis W/Reflex 0.9 mmol/L (0.5-2.2)
[2021-04-07 10:39] LABS: Troponin(5th) Baseline 97 ng/L (0-15)
[2021-04-07 10:48] LABS: Creatine Phosphokinase 95 U/L (39-308)
[2021-04-07 10:50] LABS: Blood Urea Nitrogen 161 mg/dL (6-20); Osmolality Calculated 344 mOsm/kg (285-295); Potassium 6.9 mmol/L (3.5-5.1)
[2021-04-07 11:00] LABS: Ketone (Acetest) Serum Negative (Negative)
[2021-04-07] MEDS: sodium bicarbonate 8.4% 1 mEq/mL 50mL Syr 100 MEQ IVP (11:01)
[2021-04-07] MEDS: calcium chloride 10% Syr 10 mL 2 GM IVP (11:04)
[2021-04-07 11:05] LABS: ABG PCO2 23.4 mmHg (35-45); ABG PH Result 7.23 (7.35-7.45); Alveolar-Arterial Oxygen Gradi 5.7 mmHg (5-10); Arterial Blood Gas Hematocrit 40.7 % (42-52); Base Excess ABG -15.8 mmol/L (-2.0-2.0); Blood Gas Allen Test Pos; Blood Gas Operator Identificat BROMA; Blood Gas Sample Site Brachial, left; Blood Gas Sample Type Arterial; Carboxyhemoglobin < 0.0 %THgb (0.4-20.1); HCO3 ABG 9.9 mmol/L (22-26); HGB O2 Sat 91.4 % (95-100); Ionized Calcium Level - ABG 1.2 mmol/L (1.1-1.4); Oxygen Device ROOM AIR; Oxygen Saturation ABG 92.3; PO2 ABG 76.9 mmHg (80.0-100.0); Potassium Level - ABG 6.2 mmol/L (3.5-5.0); Total Hemoglobin 13.3 g/dL (14-18)
[2021-04-07 11:14] LABS: Slide Review Slide Review Perform
[2021-04-07 11:31] LABS: Acetaminophen < 5.0 ug/mL (10-30); Alcohol Level < 10 mg/dL (0-10); Salicylate < 0.3 mg/dL (3-10)
--- NOTE | 2021-04-07 11:45 | P.HP_ITS ---
Providers/Chief Complaint Admitting Physician: Joshua Jarrett MD Primary Care Provider: Tai Moser NP Chief Complaint: Testicular Rash History of Present Illness Sadi Paniagua Jr is a 60 year old male who came into the hospital with concerns of rash in the creases of his groin. He reports he really has not been using anything on it. He denies any fevers. He denies any other rash elsewhere. He has been a little tired lately but not dizzy. He reports he has been urinating, and has not had any difficulty with it. He reports no new medications. He has been taking his medications lately, and does not seem surprised when I tell him his blood pressure is fairly low today. No anti-inflammatory use [id number] but does take meloxicam. Does have history of some chronic kidney disease, albeit he was told it was mild. No vomiting. No blood in stool, or black or tarry stools. Has been seen by oncology for leukocytosis. No definitive diagnosis for this has been given. Reports he had COVID about 4 months ago. Takes Imodium occasionally for his loose stool. More so in the last month. Review of Systems General: Reports: 10 or more systems reviewed and unremarkable except in HPI and below Const: Reports: fatigue and malaise; Denies: fever(s) Eyes: Denies: change in vision ENMT: Denies: throat pain Card: Denies: chest pain Resp: Denies: dyspnea GI: Reports: diarrhea; Denies: abdominal pain, nausea, vomiting, hematochezia or melena : Denies: flank pain Musc: Reports: neck pain and back pain Skin/Breast: Reports: rash Psych: Denies: anxiety or depression Endo: Denies: polyuria Mio/Lymph: Denies: easy bruising All/Imm: Denies: urticaria Medications/Allergies Home Medications Medication Instructions Recorded Confirmed Last Taken Type aspirin 81 mg tablet,delayed 81 mg PO DAILY 01/18/20 04/07/21 07/15/20 History release (Adult Aspirin Regimen) gabapentin 600 mg tablet 600 mg PO TID 01/18/20 04/07/21 07/17/20 History lisinopril 20 mg tablet 20 mg PO DAILY 01/18/20 04/07/21 07/16/20 History metoprolol succinate 50 mg 50 mg PO DAILY 01/18/20 04/07/2107/17/21 08:00 History tablet,extended release 24 hr omeprazole 20 mg capsule,delayed 20 mg PO DAILY 01/18/20 04/07/21 07/17/20 Histo ry release simvastatin 20 mg tablet 20 mg PO DAILY 01/18/20 04/07/21 07/16/20 History tizanidine 4 mg tablet (Zanaflex) 4 mg PO TID PRN 01/18/20 04/07/21 07/17/20 History triamterene 37.5 1 cap PO DAILY 01/18/20 04/07/21 07/17/20 History mg-hydrochlorothiazide 25 mg capsule albuterol sulfate 90 mcg/actuation 2 puff INHALATION Q6H PRN 07/04/20 04/07/21 05/15/20 History aerosol inhaler (Ventolin HFA) fluticasone 500 mcg-salmeterol 50 1 inh INHALATION BID 07/04/20 04/07/21 04/17/20 History mcg/dose blistr powdr for inhalation (Advair Diskus) meloxicam 15 mg tablet 15 mg PO DAILY 07/04/20 04/07/21 07/16/20 History hydrocodone 5 mg-acetaminophen 325 1 - 2 tab PO .Q4-6H PRN 7 Days #40 07/23/20 04/07/21 Unknown Rx mg tablet tab Allergies Allergy/AdvReac Type Severity Reaction Status Date / Time morphine AdvReac ITCHING Verified 04/07/21 10:23 PFSH Acute PFSH: Medical History (Updated 04/07/21 @ 12:29 by Joshua Jarrett MD) Chronic back pain GERD (gastroesophageal reflux disease) History of esophageal dilatation History of hypertension History of sciatica Hyperlipidemia Scoliosis Surgical History (Updated 04/07/21 @ 12:26 by Joshua Jarrett MD) History of appendectomy History of hernia repair History of lumbar laminectomy Social History Alcohol intake: current Alcohol intake frequency: other Lives independently: Yes History of recent travel: Yes Details: recently moved from [place] Out of state: Yes Vitals/I&O/Wt Last Vital Signs Temp 97.9 F 04/07/21 09:13 Pulse 96 04/07/21 10:01 Resp 22 H 04/07/21 10:01 BP 75/60 04/07/21 10:01 Pulse Ox 98 04/07/21 10:01 Weight last 48 hrs Weight 88.451 kg Physical Exam Narrative: EXAM NARRATIVE: General exam is a male, no distress HEENT: Atraumatic, normocephalic. Pupils equally round. Oropharynx clear. Mucous membranes moist. Neck is supple no lymphadenopathy or thyromegaly Cardiovascular borderline tachycardic, 2/6 systolic murmur, no S3 or S4 Lungs clear no wheezing or crackles Abdomen is soft with positive bowel sounds. No obvious organomegaly. demonstrates normal uncircumcised male Skin: Rash demonstrates tinea, including scrotum extremities no cyanosis clubbing or edema, cap refill brisk Neuro no obvious focal deficits Data : 04/07/21 09:51 04/07/21 09:51 Other Labs: Instructed to pH 7.23, PCO2 of 23, PO2 of 77 Automated differential on white blood cell count demonstrated left shift Calcium 8.7 LFTs normal Albumin 3.3 Troponin 97 Urinalysis pending Salicylate, acetaminophen level, alcohol level all less than limits of testing Uric acid, hepatitis panel, HIV pending and ordered Covid PCR pending Chest x-ray demonstrates bilateral minimal opacifications, consider pneumonitis Recent nuclear stress test March 21 demonstrated no reversible ischemia, EF around 50%, some patchy RCA territory diminished uptake myocardial infarction versus artifact. Hypokinesis of mid and apical inferior rodriguez also noted. Blood cultures were obtained EKG sinus rhythm, normal axis, possible peaked T waves but no intraventricular conduction delay. Micro: Microbiology 04/07/21 09:51 Blood Culture - Preliminary Blood SPECIMEN COLLECTED 04/07/21 09:51 Blood Culture - Preliminary Blood SPECIMEN COLLECTED A&P Assessment and plan (1) Hyperkalemia: Severe hyperkalemia present on admission. This appears to be secondary to his severe acute kidney injury. Low potassium diet. He has been given bicarbonate, calcium chloride in the emergency department. We will also give Kayexalate. He is being hydrated. Hold MAZIN inhibitor Status: Acute (2) Acute kidney injury: Severe acute renal failure. This appears to be multifactorial, and could be related to his lower blood pressure, anti-inflammatory use, MAZIN inhibitor, or other. Will check CK. Renal ultrasound ordered. Urinalysis. Go ahead and check serum protein electrophoresis, urine protein electrophoresis, hepatitis panel, HIV Avoid all renal toxic medication Continue hydration Accurate I's and O's. He was making urine in the emergency department. Status: Acute (3) Leukocytosis: Etiology uncertain. Currently no strong evidence for bacterial infection. Is afebrile, and not requiring oxygen. The changes on his chest x-ray could represent Covid that he had 3 months ago or so. Monitor for any fever. Await urinalysis. Status: Acute (4) Hypotension: This appears to be responding to fluid resuscitation. Hold all antihypertensives Cardiogram. Note that he had a reduced ejection fraction on nuclear stress testing. Status: Acute (5) Diarrhea: As this has been a chronic issue. Will go ahead and get culture, ova and parasite, C. difficile This could have contributed to his hypotension and renal failure as well. Status: Acute (6) Tinea cruris: Nystatin cream twice daily to rash Status: Acute Plan History of hypertension. Hold all antihypertensives considering hypotension COPD. This is not confirmed GERD. Continue proton pump inhibitor Full code Heparin for DVT prophylaxis Attestations Medical Necessity Statement*: Will need greater than 2 midnight stay for treatment secondary to acute kidney injury and hypotension Critical Care Time: The high probability of a clinically significant, sudden or life threatening deterioration of the patient's [renal, cardiovascular, hematologic system(s) required my full and direct attention, intervention and personal management. The critical care time is as shown. This time is in addition to time spent performing any reported procedures but includes the following: [x] Data and vital sign review and interpretation [x] Patient assessment, examination and intervention [x] Documentation [x] Medication orders and management Critical Care Time (min): 67 Coding Level of Care Code Acute Electronic Masking System Operator for Chg Fwd Diagnoses Hyperkalemia E87.5 Acute kidney injury N17.9 Leukocytosis D72.829 Hypotension I95.9 Diarrhea R19.7 Tinea cruris B35.6
--- NOTE | 2021-04-07 11:52 | US_ITS ---
WS: [id number] RENAL ULTRASOUND HISTORY: Acute renal failure COMPARISON: None available. TECHNIQUE: 2-D and color Doppler imaging of the kidney submitted. Right kidney: 10.2 cm x 4.9 cm x 5.7 cm. Normal echogenicity with no hydronephrosis or mass. Left kidney: 11.3 cm x 4.2 cm x 6.3 cm. Normal echogenicity with no hydronephrosis or mass. Aorta: Normal. Urinary Bladder: Normal distention. US/US renal BI* [id number] IMPRESSION: Normal renal ultrasound.
--- NOTE | 2021-04-07 12:17 | ECG_ITS ---
[facility] Test Date: 2021-04-07 Pat Name: Sadi Paniagua Jr Department: Room: Gender: Male Pe Manager: : 1960 Requested By: Maxim Tracy Order Number: [id number] Lina MD: Yen Leone M.D. Measurements Intervals [place] Rate: 92 P: 57 NC: 135 QRS: 73 QRSD: 90 T: 44 QT: 297 QTc: 368 Interpretive Statements SINUS RHYTHM Compared to ECG 04/07/2021 10:37:10 No significant changes Electronically Signed On 04-08-2021 5:28:40 SERVICE AIDE by Yen Leone M.D. [id number]
[2021-04-07 12:22] LABS: Troponin 5 2HR 76.97 ng/L (0-15)
[2021-04-07 12:23] LABS: Blood Urine 2+ (Negative); Glucose Urine UA Norm (Normal); Ketones Urine 1+ (Negative); Nitrate Urine Negative (Negative); Protein Urine 1+ (Negative); Urine Appearance SL Hazy (CLEAR); Urine Color Dark Yellow (Yellow); pH Urine 5 (5-7)
[2021-04-07 12:24] LABS: Add Urine Microscopic? YES; Bilirubin Urine 1+ (Negative); Leukocyte Esterase Urine 2+ (Negative); Urobilinogen Urine Norm (Negative)
[2021-04-07 12:31] LABS: Add Urine Culture? Yes; Amorphous Sediment Urine 2+ /hpf; Bacteria Urine 1+ /hpf; Squamous Epithelial Cell Urine RARE /hpf (0-5)
[2021-04-07 12:34] LABS: Uric Acid 16.1 mg/dL (3.4-7.0)
[2021-04-07 12:49] LABS: HIV 1 & 2 Antibody Non-Reactive (Non-Reactiv); HIV 1 & 2 Antigen Non-Reactive (Non-Reactiv)
[2021-04-07 12:52] LABS: Hepatitis A Antibody IgM Non-Reactive (Nonreactive); Hepatitis B Core IgM Non-Reactive (Nonreactive); Hepatitis B Surface Antigen Non-Reactive (Nonreactive); Hepatitis C Virus Antibody Non-Reactive (Nonreactive)
[2021-04-07] MEDS: cefTRIAXone 1,000 MG in sodium chloride 0.9% (plus) 50 ML 100 MG IV (12:56)
[2021-04-07] MEDS: sodium polystyrene sulfonate 15 gm/60 mL Btl PO (12:57)
[2021-04-07 13:24] LABS: Adenovirus Not Detected (NOT DETECT); Chlamydia Pneumoniae Not Detected (NOT DETECT); Coronavirus 229E,HKU1,NL63,OC4 Not Detected (NOT DETECT); Human Metapneumovirus Not Detected (NOT DETECT); Human Rhinovirus/Enterovirus Not Detected (NOT DETECT); Influenza A Not Detected (NOT DETECT); Influenza A H1 Not Detected (NOT DETECT); Influenza A H1-2009 Not Detected (NOT DETECT); Influenza A H3 Not Detected (NOT DETECT); Influenza B Not Detected (NOT DETECT); Mycoplasma Pneumoniae Not Detected (NOT DETECT); Parainfluenza Virus Type 1 Not Detected (NOT DETECT); Parainfluenza Virus Type 2 Not Detected (NOT DETECT); Parainfluenza Virus Type 3 Not Detected (NOT DETECT); Parainfluenza Virus Type 4 Not Detected (NOT DETECT); Respiratory Syncytial Virus A Not Detected (NOT DETECT); Respiratory Syncytial Virus B Not Detected (NOT DETECT); SARS-COV-2 Not Detected (NOT DETECT)
--- NOTE | 2021-04-07 13:52 | P.CONIM_ITS ---
Providers/Reason For Consult Consulting Physician/Specialty*: Nephrology Reason for Consult*: Renal Failure, hyperkalemia Primary Care Provider: Tai Moser NP History of Present Illness History of Present Illness Thank you for consultation, today had the pleasure of reviewing this very pleasant 60-year-old gentleman for evaluation of acute renal failure. He reports having Covid a couple of months ago, although he is somewhat vague about this clinical history. Over the last couple of weeks he has had a very poor oral intake although he does deny dysphagia (he does have a history of esophageal stricture), and he has had diarrhea. I seen his med list that previously he was exposed to lisinopril, Maxide, meloxicam and keto [place] although he does deny actually taking these medications in his recent history. Passing urine without any obstructive uropathy, the urine is produced today of his dark, concentrated but not bloody or cloudy. He just passed 250 mL. On arrival blood pressure was soft with systolic in the 70s, this has improved with some IV fluid boluses, so far he has received 2 boluses. No history of acute or chronic kidney disease, is never seen a active directory administrator or required hemodialysis. A month ago his serum creatinine was 1.1, he now presents with a creatinine of 7.8 and a potassium of 6.9 with a bicarb of 12 and anion gap of 26.9 with a lactic acid level of 0.9. He denies any other overt uremic symptoms including myoclonus, hiccups, dysgeusia, altered mental status. No extremity edema, shortness of breath or other hypervolemic symptoms. Urinalysis performed in the emergency room demonstrate specific gravity 1.02, 1+ protein, 1+ ketones, 2+ blood, 5-10 RBCs, 10-15 WBCs, 5-10 coarse granular casts. It appears that he was seen by oncology roughly 1 month ago although he has a poor memory of this, this was for leukocytosis. Review of Systems Narrative: ROS - 12 point review of systems completed per HPI and subjective assessment, this includes Constitutional: Weakness, fatigue Respiratory: No SOB on exertion, comfortable at rest CardioVasc: No chest pain, palpitations Gastrointestinal: No nausea, no vomiting Neurological: No seizures, no AMS Derm: No new rashes, lesions or wounds Immunological: No seasonal and no food allergies Medications/Allergies Home Medications Medication Instructions Recorded Confirmed Last Taken Type aspirin 81 mg tablet,delayed 81 mg PO DAILY 01/18/20 04/07/21 07/15/20 History release (Adult Aspirin Regimen) gabapentin 600 mg tablet 600 mg PO TID 01/18/20 04/07/21 07/17/20 History lisinopril 20 mg tablet 20 mg PO DAILY 01/18/20 04/07/21 07/16/20 History metoprolol succinate 50 mg 50 mg PO DAILY 01/18/20 04/07/21 07/17/20 08:00 History tablet,extended release 24 hr omeprazole 20 mg capsule,delayed 20 mg PO DAILY 01/18/20 04/07/21 07/17/20 History release simvastatin 20 mg tablet 20 mg PO DAILY 01/18/20 04/07/21 07/16/20 History tizanidine 4 mg tablet (Zanaflex) 4 mg PO TID PRN 01/18/20 04/07/21 07/17/20 History triamterene 37.5 1 cap PO DAILY 01/18/20 04/07/21 07/17/20 History mg-hydrochlorothiazide 25 mg capsule albuterol sulfate 90 mcg/actuation 2 puff INHALATION Q6H PRN 07/04/20 04/07/21 05/15/20 History aerosol inhaler (Ventolin HFA) fluticasone 500 mcg-salmeterol 50 1 inh INHALATION BID 07/04/20 04/07/21 04/17/20 History mcg/dose blistr powdr for inhalation (Advair Diskus) meloxicam 15 mg tablet 15 mg PO DAILY 07/04/20 04/07/21 07/16/20 History hydrocodone 5 mg-acetaminophen 325 1 - 2 tab PO .Q4-6H PRN 7 Days #40 07/23/20 04/07/21 Unknown Rx mg tablet tab Allergies Allergy/AdvReac Type Severity Reaction Status Date / Time morphine AdvReac ITCHING Verified 04/07/21 10:23 Current Medications Generic Name Dose Route Start Last Admin Trade Name Freq PRN Reason Stop Dose Admin Ceftriaxone Sodium 1,000 mg/ 50 mls @ 100 mls/hr 04/07/21 13:00 04/07/21 13:24 Sodium Chloride IV Infused Q24H DAPHNEY Infusion Protocol PFSH Acute PFSH: Medical History (Updated 04/07/21 @ 12:29 by Joshua Jarrett MD) Chronic back pain GERD (gastroesophageal reflux disease) History of esophageal dilatation History of hypertension History of sciatica Hyperlipidemia Scoliosis Surgical History (Updated 04/07/21 @ 12:26 by Joshua Jarrett MD) History of appendectomy History of hernia repair History of lumbar laminectomy Social History Alcohol intake: current Alcohol intake frequency: other Lives independently: Yes History of recent travel: Yes Details: recently moved from [place] Out of state: Yes Vitals/I&O/Wt Last Vital Signs Temp 97.9 F 04/07/21 09:13 Pulse 92 04/07/21 12:30 Resp 18 04/07/21 12:30 BP 99/57 04/07/21 12:30 Pulse Ox 96 04/07/21 12:30 04/06/21 04/07/21 04/07/21 22:59 06:59 14:59 Intake Total 2049 Balance 2049 Weight last 48 hrs Weight 88.451 kg Physical Exam Narrative: EXAM NARRATIVE: Constitutional: Awake, comfortable HEENT: Dry mucosa, no jvp, non icteric Lungs: Bilaterally clear without discernible wheeze, rales in all lung zones CVS: S1 S2, no murmurs Abdo: Soft, BS ok Ext 4: Minimal edema, peripheral perfusion with no cyanosis Neurological: Grossly non-focal Data : 04/07/21 09:51 04/07/21 09:51 Micro: Microbiology 04/07/21 09:51 Blood Culture - Preliminary Blood SPECIMEN COLLECTED 04/07/21 09:51 Blood Culture - Preliminary Blood SPECIMEN COLLECTED A&P Assessment and plan (1) Acute kidney injury: Status: Acute Plan 1. Acute kidney injury Urinalysis consistent with coarse granular casts consistent with ATN, consistent with the clinical picture of hypotension, poor oral intake, renal hypoperfusion. Supportive therapy including liberal IV hydration has commenced, blood pressure is already more robust, already making a little more urine. We will continue to monitor his kidney function every 4-5 hours, and hope that his renal function improves without the requirement for hemodialysis although he is a very high risk of requiring this. We will set up a limited evaluation to begin with including CPK, TSH, fractional excretion of sodium. If renal function fails to improve, will broaden serological evaluation to evaluate for glomerulonephritis. Hyper uricemia noted, treat with ivf for the time being Continue IV hydration (see below) Dose medication for GFR less than 15 Avoid usual nephrotoxic agents. 2. Chemistry Critical hyperkalemia, anion gap metabolic acidosis likely secondary to renal failure. He denies any recent exposure to anti-inflammatory medication/MAZIN inhibitor's etc. So far has received a hyperkalemic cocktail, will give him a D5 sodium bicarbonate infusion (@150mL/hr), continue close monitoring of renal function. 3. Hemodynamics Low blood pressure on admission, seems to be responsive to IV hydration. Close monitoring of hemodynamics. Manolo Kearns MD Nephrology [phone] Patient seen and examined via telemedicine, with the assistance of the bedside RN > 25 min spent in evaluation and mgmt of patient Coding Level of Care Code Acute Steam Tender for Axel Stack Diagnoses Acute kidney injury N17.9
[2021-04-07 14:04] LABS: Anion Gap 17.4 (5-19); Calcium 9.1 mg/dL (8.5-10.5); Carbon Dioxide 14 mmol/L (22-29); Chloride 118 mmol/L (98-107); Glomerular Filtration Rate 9.5 mL/min (90-130); Glucose 92 mg/dL (65-115); Potassium 5.4 mmol/L (3.5-5.1); Sodium 144 mmol/L (136-145)
[2021-04-07 14:14] LABS: Blood Urea Nitrogen 140 mg/dL (6-20); Osmolality Calculated 343 mOsm/kg (285-295)
[2021-04-07] MEDS: sodium bicarbonate 150 MEQ in dextrose 5% 1,000 ML IV (14:40)
--- NOTE | 2021-04-07 14:44 | USCV_ITS ---
Paniagua Sadi Age: 60 Gender: M : 1960 Exam Date: 04/07/2021 15:18 Ordering Phys: Joshua Jarrett MD Technologist: TAHIRA Exam Location: [facility] – [place] Indication: REDUCED EF ON STRESS TEST BP: 97 / 61 HR: 97 Rhythm: Sinus Technical Quality: Adequate MEASUREMENTS (Male / Female) Normal Values 2D ECHO LV Diastolic Diameter PLAX 3.8 cm 4.2 - 5.9 / 3.9 - 5.3 cm LV Systolic Diameter PLAX 2.7 cm IVS Diastolic Thickness 0.6 cm 0.6 - 1.0 / 0.6 - 0.9 cm IVS Systolic Thickness 0.8 cm LVPW Diastolic Thickness 1.5 cm 0.6 - 1.0 / 0.6 - 0.9 cm LVPW Systolic Thickness 1.8 cm LVOT Diameter 2.0 cm LV Ejection Fraction 2D Teich 58.1 % LV Ejection Fraction MOD 2C 67.3 % LV Ejection Fraction 2C AL 67.9 % LA Diameter 3.2 cm LA Width 2.3 cm LA Height 3.9 cm RA Width 2.3 cm RA Height 4.6 cm Aorta at Sinotubular Diameter 2.6 cm M-MODE Aortic Annulus Diameter 3.0 cm LA Ao Ratio MM 1.1 DOPPLER AV Peak Velocity 156.0 cm/s LVOT Peak Velocity 108.0 cm/s AV Area Cont Eq vti 2.0 cm squared AV Area Cont Eq pk 2.2 cm squared MV Area PHT 5.0 cm squared Mitral E to A Ratio 0.6 MV E' Velocity 26.0 cm/s Mitral E to MV E' Ratio 7.3 Mitral E to LV E' Lateral Ratio 5.4 Mitral E to LV E' Septal Ratio 11.1 RV Acceleration Time 0.1 s RV Ejection Time 0.3 s RV AcT/ET 0.5 FINDINGS Left Ventricle Normal left ventricular size. LV systolic function is normal with EF of 50-55%. No regional wall motion abnormalities. Grade 1 diastolic dysfunction Right Ventricle The right ventricle is normal in size and function. Right Atrium The right atrium is normal in size. Left Atrium The left atrium is normal in size. Mitral Valve Structurally normal mitral valve without significant stenosis or prolapse. There is trace mitral regurgitation. Aortic Valve Structurally normal aortic valve without significant sclerosis or stenosis. There is no aortic regurgitation. Tricuspid Valve Structurally normal tricuspid valve without significant stenosis or regurgitation. Insufficient TR jet to calculate RVSP Pulmonic Valve Structurally normal pulmonic valve without significant stenosis. There is trivial pulmonic regurgitation. Pericardium Normal pericardium without effusion. Aorta Normal ascending aorta dimension. CONCLUSIONS LV systolic function is normal with EF of 50-55% Grade 1 diastolic dysfunction Trace mitral regurgitation Trivial pulmonic regurgitation No comparison studies are available Tano Shaffer MD (Electronically Signed) Final Date: 07 April 2021 17:29 S
[2021-04-07 15:06] LABS: Creatinine Urine, Random 376 mg/dL (39-259)
[2021-04-07 15:07] LABS: Urine Random Sodium 46 mmol/L
[2021-04-07 17:31] LABS: Troponin 5 6HR 64.47 ng/L (0-15)
[2021-04-07] MEDS: nystatin cream 30 gm 1 APPLIC TOPICAL (18:35)
[2021-04-07] MEDS: heparin 5,000 unit/mL INJ 1 mL 5000 UNIT SUBCUT (20:21)
--- NOTE | 2021-04-07 20:27 | PC.NURSE ---
Arrived to unit from ED via WC, transferred self to bed, AO x4, no c/o at this time
--- NOTE | 2021-04-07 21:05 | PC.NURSE ---
Info to family Permission given for information to be given to galina yee (sister), unable to get number at this time
[2021-04-07 22:17] LABS: Anion Gap 16.7 (5-19); Calcium 9.2 mg/dL (8.5-10.5); Carbon Dioxide 21 mmol/L (22-29); Chloride 110 mmol/L (98-107); Glomerular Filtration Rate 13.5 mL/min (90-130); Glucose 122 mg/dL (65-115); Potassium 5.7 mmol/L (3.5-5.1); Sodium 142 mmol/L (136-145)
[2021-04-07 22:26] LABS: Osmolality Calculated 340 mOsm/kg (285-295)
[2021-04-07 22:34] LABS: Blood Urea Nitrogen 137 mg/dL (6-20)
[2021-04-08] VITALS (44 sets, daily range): BP systolic 80–115; BP diastolic 45–83; PULSE 77–138; RESP 13–29; TEMP 36.7–37.1; O2SAT 69–100
[2021-04-08] MEDS: sodium chloride 0.9% 1,000 ML 100 ML IV ×3 (01:10→20:12)
[2021-04-08 06:33] LABS: Basophils % 0.2 %; Eosinophils # 0.2 10^3/uL (0.0-0.8); Eosinophils % 1.1 %; Hematocrit 38.1 % (42.0-52.0); Hemoglobin 12.2 g/dL (11.7-16.6); Lymphocytes # 3.2 10^3/uL (0.8-4.8); Lymphocytes % 22.8 %; Mean Corpuscular Hemoglobin 27.7 pg (28.0-34.0); Mean Corpuscular Volume 86.6 fl (80-94); Monocytes # 0.8 10^3/uL (0.2-0.9); Monocytes % 5.3 %; Neutrophils # 9.85 10^3/uL (1.8-7.7); Neutrophils % 69.5 %; Nucleated Red Blood Cells % 0 %; Platelet Count 311 10^3/cmm (130-400); Red Cell Distribution Width 14.8 % (12.1-15.1); White Blood Count 14.2 10^3/uL (4.0-10.0)
--- NOTE | 2021-04-08 06:33 | PC.NURSE ---
Dr. Schmidt gave t.o. to transfer patient to med surg, awaiting MD to put orders in at this time
[2021-04-08 07:58] LABS: Alanine Aminotransferase 9 U/L (0-41); Alkaline Phosphatase 52 IU/L (40-130); Anion Gap 16.6 (5-19); Aspartate Amino Transferase 11 U/L (0-40); Carbon Dioxide 21 mmol/L (22-29); Chloride 112 mmol/L (98-107); Globulin 3.2 g/dL (1.3-4.6); Glomerular Filtration Rate 18.7 mL/min (90-130); Glucose 109 mg/dL (65-115); Osmolality Calculated 333 mOsm/kg (285-295); Potassium 5.6 mmol/L (3.5-5.1); Sodium 144 mmol/L (136-145); Total Bilirubin 0.4 mg/dL (0.15-1.2); Total Protein 6.2 g/dL (6.6-8.7)
[2021-04-08 08:01] LABS: Blood Urea Nitrogen 109 mg/dL (6-20)
[2021-04-08 08:14] LABS: Slide Review Slide Review Perform
--- NOTE | 2021-04-08 08:15 | PM.PN ---
Subjective Subjective: Sadi reports he is doing okay. Feeling better. No specific complaints today. Medications: Reviewed: Yes Vitals/I&O/Wt Last Vital Signs Temp 97.9 F 04/07/21 09:13 Pulse 87 04/08/21 06:30 Resp 16 04/08/21 04:00 BP 97/62 04/08/21 06:30 Pulse Ox 97 04/08/21 06:30 04/07/21 04/08/21 04/08/21 22:59 06:59 14:59 Intake Total 1150 / 3200 Output Total 1500 / 1500 Balance -350 / 1700 Weight last 48 hrs Weight 83.461 kg Weight 88.451 kg Physical Exam Narrative: General exam is a male, no distress Neck is supple no lymphadenopathy or thyromegaly Cardiovascular borderline tachycardic, 2/6 systolic murmur, no S3 or S4 Lungs clear no wheezing or crackles Abdomen is soft with positive bowel sounds. No obvious organomegaly. demonstrates normal uncircumcised male. Rash improved Extremities no cyanosis clubbing or edema Data : 04/08/21 05:42 04/08/21 09:35 Micro: Microbiology 04/07/21 09:51 Blood Culture - Preliminary Blood SPECIMEN COLLECTED 04/07/21 09:51 Blood Culture - Preliminary Blood SPECIMEN COLLECTED A&P Assessment and plan (1) Hyperkalemia: Severe hyperkalemia present on admission. This is significantly improved. This appears to be secondary to his severe acute kidney injury. Low potassium diet. Repeat Kayexalate dose now Continue to hold MAZIN inhibitor Appreciate nephrology consultation Status: Acute (2) Acute kidney injury: Severe acute renal failure. This appears to be multifactorial, and could be related to his lower blood pressure, anti-inflammatory use, MAZIN inhibitor, or other. Will check CK. Renal ultrasound no obstruction. Urinalysis appeared to show UTI and ceftriaxone initiated await urine and serum electrophoresis. HIV and hepatitis panel negative IV Avoid all renal toxic medication Continue hydration Accurate I's and O's. He was making urine in the emergency department. Repeat BMP ordered for 1400 per nephrology Status: Acute (3) Leukocytosis: Etiology uncertain. Currently no strong evidence for bacterial infection. Is afebrile, and not requiring oxygen. The changes on his chest x-ray could represent Covid that he had 3 months ago or so. Monitor for any fever. Leukocytosis is improved Blood cultures negative today Status: Acute (4) Hypotension: This appears to be responding to fluid resuscitation. Hold all antihypertensives Echocardiogram demonstrated EF of 50 to 55%, grade 1 diastolic dysfunction, trace mitral regurgitation. Note that he had a reduced ejection fraction on nuclear stress testing. Status: Acute (5) Diarrhea: As this has been a chronic issue. Will go ahead and get culture, ova and parasite, C. difficile This could have contributed to his hypotension and renal failure as well. This has yet to be collected as he has not had a stool. Status: Acute (6) Tinea cruris: Nystatin cream twice daily to rash Status: Acute Plan History of hypertension. Hold all antihypertensives considering hypotension COPD. This is not confirmed GERD. Continue proton pump inhibitor Full code Heparin for DVT prophylaxis May transfer out of ICU Attestations Medical Necessity Statement*: Needs continued hospitalization for acute kidney injury, monitoring for continued improvement in this patient with hyperkalemia. Coding Level of Care Code Acute Racing Secretary And Handicapper for Axel Stack Diagnoses Hyperkalemia E87.5 Acute kidney injury N17.9 Leukocytosis D72.829 Hypotension I95.9 Diarrhea R19.7 Tinea cruris B35.6
[2021-04-08] MEDS: heparin 5,000 unit/mL INJ 1 mL 5000 UNIT SUBCUT ×2 (08:18→20:11)
[2021-04-08] MEDS: pantoprazole DR 40 mg Tablet PO (08:18)
[2021-04-08] MEDS: nystatin cream 30 gm 1 APPLIC TOPICAL ×2 (09:43→18:16)
--- NOTE | 2021-04-08 09:45 | P.PN_ITS ---
Subjective Subjective: Mr. Paniagua feels significantly better today. Eating and drinking. No nausea or vomiting. No diarrhea. Remains on IV fluid. Today he did lose his IV. Passing urine without obstruction, good volume, 1500 mL. No uremic symptoms. Vitals/I&O/Wt Last Vital Signs Temp 97.9 F 04/07/21 09:13 Pulse 109 H 04/08/21 09:01 Resp 21 H 04/08/21 09:01 BP 114/77 04/08/21 09:01 Pulse Ox 89 L 04/08/21 08:31 04/07/21 04/08/21 04/08/21 22:59 06:59 14:59 Intake Total 1150 / 3200 716.667 / 716.667 Output Total 1500 / 1500 Balance -350 / 1700 716.667 / 716.667 Weight last 48 hrs Weight 83.461 kg Weight 88.451 kg Physical Exam Narrative: Constitutional: Awake, comfortable HEENT: Dry mucosa, no jvp, non icteric Lungs: Bilaterally clear without discernible wheeze, rales in all lung zones CVS: S1 S2, no murmurs Abdo: Soft, BS ok Ext 4: Minimal edema, peripheral perfusion with no cyanosis Neurological: Grossly non-focal Data : 04/08/21 05:42 04/08/21 05:42 Micro: Microbiology 04/07/21 09:51 Blood Culture - Preliminary Blood SPECIMEN COLLECTED 04/07/21 09:51 Blood Culture - Preliminary Blood SPECIMEN COLLECTED A&P Assessment and plan (1) Acute kidney injury: Status: Acute Plan 1. Acute kidney injury Pre-renal with mild ATN Now recovering nicely No indication for dialysis Continue IV hydration (see below) Dose medication for GFR less than 15 Avoid usual nephrotoxic agents. 2. Chemistry Mild hyperkalemia; ok for NS only, no need for Kayexalate or other K-binder Repeat labs later today Renal diet 3. Hemodynamics Low blood pressure on admission, seems to be responsive to IV hydration. Close monitoring of hemodynamics. Manolo Kearns MD Nephrology [phone] Patient seen and examined via telemedicine, with the assistance of the bedside RN > 25 min spent in evaluation and mgmt of patient Attestations Medical Necessity Statement*: eval for GEORGE Coding Level of Care Code Acute Chronometer Tester for Chg Fwd Diagnoses Acute kidney injury N17.9
[2021-04-08 10:08] LABS: PROTEIN, TOTAL 5.4 g/dL (6.1-8.1)
[2021-04-08 10:22] LABS: Calcium 9.8 mg/dL (8.5-10.5); Carbon Dioxide 17 mmol/L (22-29); Chloride 114 mmol/L (98-107); Glomerular Filtration Rate 25.5 mL/min (90-130); Glucose 139 mg/dL (65-115); Sodium 140 mmol/L (136-145)
[2021-04-08 10:25] LABS: Anion Gap 14.8 (5-19); Potassium 5.8 mmol/L (3.5-5.1)
[2021-04-08 10:34] LABS: Blood Urea Nitrogen 113 mg/dL (6-20); Osmolality Calculated 328 mOsm/kg (285-295)
[2021-04-08] MEDS: cefTRIAXone 1,000 MG in sodium chloride 0.9% (plus) 50 ML 100 MG IV (13:24)
[2021-04-08 14:50] LABS: Carbon Dioxide 16 mmol/L (22-29); Chloride 115 mmol/L (98-107); Glomerular Filtration Rate 27.9 mL/min (90-130); Glucose 114 mg/dL (65-115); Osmolality Calculated 322 mOsm/kg (285-295); Sodium 140 mmol/L (136-145)
[2021-04-08 14:53] LABS: Anion Gap 15.2 (5-19); Potassium 6.2 mmol/L (3.5-5.1)
[2021-04-08 14:54] LABS: Blood Urea Nitrogen 99 mg/dL (6-20)
--- NOTE | 2021-04-08 15:54 | ECG_ITS ---
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 Measurements Intervals [place] Rate: 84 P: 46 MN: 143 QRS: 43 QRSD: 86 T: 26 QT: 324 QTc: 385 Interpretive Statements SINUS RHYTHM Compared to ECG 04/07/2021 12:54:03 No significant changes Electronically Signed On 04-08-2021 17:04:42 DEFECTIVE CIGARETTE SLITTER by Tano Shaffer M.D. [email or web address] memorial [email or web address]/[id number]
[2021-04-08] MEDS: sodium polystyrene sulfonate 15 gm/60 mL Btl PO ×2 (16:05→22:25)
[2021-04-08 16:07] LABS: ABNORMAL PROTEIN BAND 1 0.4 g/dL (NONE DETECTED); ALBUMIN 2.3 g/dL (3.8-4.8); ALPHA 1 GLOBULIN 0.6 g/dL (0.2-0.3); ALPHA 2 GLOBULIN 0.9 g/dL (0.5-0.9); BETA 1 GLOBULIN 0.3 g/dL (0.4-0.6); BETA 2 GLOBULIN 0.4 g/dL (0.2-0.5); GAMMA GLOBULIN 0.9 g/dL (0.8-1.7)
[2021-04-08 16:57] LABS: Creatinine, Random Urine 409 mg/dL (20-320); Protein, Total, Random 86 mg/dL (5-25); Protein/Creatinine Ratio 210 mg/g creat (22-128)
[2021-04-08 21:45] LABS: Calcium 8.8 mg/dL (8.5-10.5); Carbon Dioxide 15 mmol/L (22-29); Chloride 117 mmol/L (98-107); Glomerular Filtration Rate 29.4 mL/min (90-130); Glucose 120 mg/dL (65-115); Osmolality Calculated 324 mOsm/kg (285-295); Sodium 143 mmol/L (136-145)
[2021-04-08 21:48] LABS: Anion Gap 17.5 (5-19); Blood Urea Nitrogen 89 mg/dL (6-20)
[2021-04-08 21:50] LABS: Potassium 6.5 mmol/L (3.5-5.1)
[2021-04-08] MEDS: insulin regular-human 10 UNIT in SYRINGE 1 EACH IVP (22:48)
[2021-04-08] MEDS: dextrose 50% syringe 50 mL IVP (22:49)
[2021-04-09] VITALS (13 sets, daily range): BP systolic 91–138; BP diastolic 54–91; PULSE 77–98; RESP 14–25; TEMP 36.8–37.1; O2SAT 91–97
[2021-04-09] MEDS: sodium polystyrene sulfonate 15 gm/60 mL Btl PO (03:36)
[2021-04-09 03:51] LABS: Basophils % 0.3 %; Eosinophils # 0.1 10^3/uL (0.0-0.8); Eosinophils % 0.9 %; Hematocrit 35.1 % (42.0-52.0); Hemoglobin 11.1 g/dL (11.7-16.6); Lymphocytes # 3.6 10^3/uL (0.8-4.8); Lymphocytes % 30.1 %; Mean Corpuscular HGB Conc 31.6 g/dL (30.0-36.0); Mean Corpuscular Hemoglobin 27.8 pg (28.0-34.0); Mean Platelet Volume 11.5 fL (7.4-10.4); Monocytes # 0.9 10^3/uL (0.2-0.9); Monocytes % 7.6 %; Neutrophils # 7.15 10^3/uL (1.8-7.7); Neutrophils % 59.8 %; Nucleated Red Blood Cells % 0 %; Platelet Count 282 10^3/cmm (130-400); Red Blood Count 3.99 10^6/uL (4.1-5.3); Red Cell Distribution Width 14.9 % (12.1-15.1); White Blood Count 11.9 10^3/uL (4.0-10.0)
[2021-04-09 04:21] LABS: Anion Gap 13.8 (5-19); Blood Urea Nitrogen 75 mg/dL (6-20); Calcium 8.9 mg/dL (8.5-10.5); Carbon Dioxide 16 mmol/L (22-29); Chloride 119 mmol/L (98-107); Glomerular Filtration Rate 38.9 mL/min (90-130); Glucose 112 mg/dL (65-115); Osmolality Calculated 321 mOsm/kg (285-295); Potassium 4.8 mmol/L (3.5-5.1); Sodium 144 mmol/L (136-145)
--- NOTE | 2021-04-09 07:16 | PC.NURSE ---
Bedside report received from nurse Wu. Patient found to be resting in bed. A&O. Pleasant and cooperative. Vitals WNL per NK monitor. K+ looks to be down per goal after receiving keyexelate. Patient reports his baseline home pain level is betwen 6-8. Patient assisted to BSC. Watery loose stool noted consistent with treatment plan. Back to bed. Did have some increased WOB but recovered immediately upon returning to bed. Complains of continued chronic back pain. Plans to potentially move out of ICU today.
--- NOTE | 2021-04-09 07:24 | PM.PN ---
Subjective Subjective: Quite a bit of loose stool last night, but did have several doses of Kayexalate for escalating potassium. No abdominal pain. Medications: Reviewed: Yes Vitals/I&O/Wt Last Vital Signs Temp 98.4 F 04/09/21 04:00 Pulse 96 04/09/21 06:01 Resp 23 H 04/09/21 06:01 BP 135/91 04/09/21 06:01 Pulse Ox 94 04/09/21 06:01 04/08/21 04/09/21 04/09/21 22:59 06:59 14:59 Intake Total 1730.1 / 3256.767 300 / 3556.767 Output Total 300 / 550 Balance 1430.1 / 2706.767 300 / 3006.767 Weight last 48 hrs Weight 84.595 kg Weight 83.461 kg Weight 88.451 kg Physical Exam Narrative: General exam is a male, no distress Neck is supple no lymphadenopathy or thyromegaly Cardiovascular borderline tachycardic, 2/6 systolic murmur, no S3 or S4 Lungs clear no wheezing or crackles Abdomen is soft with positive bowel sounds. No obvious organomegaly. Extremities no cyanosis clubbing or edema Data : 04/09/21 03:27 04/09/21 03:27 Micro: Microbiology 04/08/21 Unknown C.difficile Toxin B Gene (PCR) - Final Stool Routine Collection 04/07/21 09:51 Blood Culture - Preliminary Blood NEGATIVE TO DATE 04/07/21 09:51 Blood Culture - Preliminary Blood NEGATIVE TO DATE A&P Assessment and plan (1) Hyperkalemia: Severe hyperkalemia present on admission. Down to 4.8 today This appears to be secondary to his severe acute kidney injury. Low potassium diet. Hopefully no more Kayexalate will be needed Continue to hold MAZIN inhibitor Appreciate nephrology consultation Has transfer orders already Status: Acute (2) Acute kidney injury: Severe acute renal failure. This appears to be multifactorial, and could be related to his lower blood pressure, anti-inflammatory use, MAZIN inhibitor, or other. Will check CK. Renal ultrasound no obstruction. Urinalysis appeared to show UTI and ceftriaxone initiated await urine and serum electrophoresis. HIV and hepatitis panel negative IV Avoid all renal toxic medication Continue hydration Repeat BMP around 2 PM Status: Acute (3) Leukocytosis: Etiology uncertain. Currently no strong evidence for bacterial infection. Is afebrile, and not requiring oxygen. The changes on his chest x-ray could represent Covid that he had 3 months ago or so. Monitor for any fever. Leukocytosis continues to improve Blood cultures negative today Status: Acute (4) Hypotension: Resolved Hold all antihypertensives Echocardiogram demonstrated EF of 50 to 55%, grade 1 diastolic dysfunction, trace mitral regurgitation. Note that he had a reduced ejection fraction on nuclear stress testing. Status: Acute (5) Diarrhea: As this has been a chronic issue. Will go ahead and get culture, ova and parasite, C. difficile C. difficile was negative Status: Acute (6) Tinea cruris: Nystatin cream twice daily to rash Status: Acute Plan History of hypertension. Hold all antihypertensives considering hypotension COPD. This is not confirmed GERD. Continue proton pump inhibitor Full code Heparin for DVT prophylaxis May transfer out of ICU Attestations Medical Necessity Statement*: Needs continued hospitalization, to ensure hyperkalemia does not recur. Coding Level of Care Code Acute Police Radio Dispatcher for Axel Stack Diagnoses Hyperkalemia E87.5 Acute kidney injury N17.9 Leukocytosis D72.829 Hypotension I95.9 Diarrhea R19.7 Tinea cruris B35.6
[2021-04-09] MEDS: sodium chloride 0.9% 1,000 ML 100 ML IV (07:51)
[2021-04-09] MEDS: pantoprazole DR 40 mg Tablet PO (07:52)
[2021-04-09] MEDS: heparin 5,000 unit/mL INJ 1 mL 5000 UNIT SUBCUT (07:52)
[2021-04-09] MEDS: nystatin cream 30 gm 1 APPLIC TOPICAL (07:53)
--- NOTE | 2021-04-09 08:58 | PC.NURSE ---
Dr. Kearns rounding with patient via telehealth now. Instructions to D/C maintenance fluids at this time. Per Dr. Kearns patient is doing okay as far as acute kidney function goes. Physician explained that myeloma result was noted in some labs. Dr. Kearns Explained at length that this is non urgent but should be followed up with primary care physician.
--- NOTE | 2021-04-09 09:53 | PM.PN ---
Subjective Subjective: Sadi is doing very well today. Eating and drinking well. Some loose stool from Kayexalate but otherwise no other symptoms at this time. Eating and drinking well. Keen to go home. Medications: Reviewed: Yes Vitals/I&O/Wt Last Vital Signs Temp 98.4 F 04/09/21 04:00 Pulse 84 04/09/21 08:53 Resp 18 04/09/21 08:53 BP 135/91 04/09/21 06:01 Pulse Ox 97 04/09/21 08:53 04/08/21 04/09/21 04/09/21 22:59 06:59 14:59 Intake Total 1730.1 / 3256.767 1300 / 4556.767 Output Total 300 / 550 Balance 1430.1 / 2706.767 1300 / 4006.767 Weight last 48 hrs Weight 84.595 kg Weight 83.461 kg Physical Exam Narrative: Constitutional: Awake, comfortable HEENT: Dry mucosa, no jvp, non icteric Lungs: Bilaterally clear without discernible wheeze, rales in all lung zones CVS: S1 S2, no murmurs Abdo: Soft, BS ok Ext 4: Minimal edema, peripheral perfusion with no cyanosis Neurological: Grossly non-focal Data : 04/09/21 03:27 04/09/21 03:27 Micro: Microbiology 04/07/21 11:47 Urine Culture - Final Urine,Clean Catch 04/08/21 Unknown C.difficile Toxin B Gene (PCR) - Final Stool Routine Collection 04/07/21 09:51 Blood Culture - Preliminary Blood NEGATIVE TO DATE 04/07/21 09:51 Blood Culture - Preliminary Blood NEGATIVE TO DATE A&P Assessment and plan (1) Acute kidney injury: Status: Acute Plan 1. Acute kidney injury Pre-renal with mild ATN Now recovering nicely 2. Chemistry K high yesterday but came down nicely with Kayexalate He is okay for discharge at this time from my own perspective. I recommend that he sees an outpatient leather toggler in the next few weeks. At this time I will sign off his care, thank you for my involvement in his case, as always we appreciate it. Manolo Kearns MD Nephrology [phone] Patient seen and examined via telemedicine, with the assistance of the bedside RN > 25 min spent in evaluation and mgmt of patient Attestations Medical Necessity Statement*: Eval for GEORGE Coding Level of Care Code Acute Medical Auditor for g Fwd Diagnoses Acute kidney injury N17.9
--- NOTE | 2021-04-09 10:02 | PC.CHAP ---
Pastoral Care Encounter/Spiritual Assessment Type of Contact [] Declined computer system specialist visit [] Patient/Family/Request visit [] Outpatient visit [] Follow-up visit [] Physician referral [] Code/Alert [x] Routine visit [] Staff referral [] Actively dying [] Patient sleeping [] Family support [] [] Out of room [] Palliative care [] [] Receiving care in room [] Pre-surgical visit [] Trauma [] Long length of stay [x] ICU visit [] Other: Relational/Emotional Strength [] Patient feels connected with others/family/visitors/staff [] Distress [] Loneliness/isolation [] Abandonment Spirituality of Patient [] Person of Francisca [] Attends Islam of their Francisca [] Believes in Prayer [] Reads Bible or Latter-Day materials [] There are Spiritual issues to be addressed Community Relations Coordinator Interventions [x] Prayer [x] Active listening [x] Non-anxious presence [x] Spiritual/emotional support [] Crisis/trauma care [] Spiritual counseling [] Bereavement support [] Provided bereavement packet [] Provided Bible/devotional materials [] Provided toy/stuffed animal, coloring book to patient or family member [] Provided Communion [] Anointing/[place] [] Salvation [x] Completed spiritual assessment [] Other: Impact on Illness or Injury [] Angry [] Fearful [] Anxious [] Often cries [] Exhaustion [] Unable to work [] Unable to attend spiritism [] Unable to walk/stand [] Unable to read [] Unable to drive [] Unable to eat/drink [] Unable to sleep [] Unable to be with family [] Patient intubated [] Other: Summary patient feeling stronger.... Time spent with patient 5 min
--- NOTE | 2021-04-09 12:45 | PM.DCS ---
Discharge Providers Date of Admission: 04/07/21 14:44 Date of Discharge: April 09, 2021 Attending Provider at Admission: Joshua Jarrett MD Attending Provider at Discharge: Joshua Jarrett MD Primary Care Provider: Tai Moser NP Diagnoses at Discharge Discharge Diagnosis (1) Acute kidney injury: Status: Acute Reason for Visit Reason for Visit: Testicular Rash Hospital Course Hospital Course Sadi is a 60-year-old white male who presented to the emergency department with complaints of rash in his groin. He was found to have severe renal failure. He was markedly hyperkalemic. Tinea cruris was noted in his groin. Hypotension was present as well. He was given medication for his hyperkalemia including insulin and glucose, calcium chloride, and Kayexalate. He received hydration. All blood pressure medicines were held. Nystatin cream was started for his tinea cruris. Throughout his hospital stay his renal function gradually improved. Renal ultrasound was negative for obstruction. Nephrology followed along as well. Rocephin was given for UTI but ultimately urine culture did not grow any organisms. By April his potassium was better, as well as creatinine. Potassium was 4.8, creatinine 1.8. Creatinine on admission was 7.8. He will be able to be discharged home, following a low potassium diet, not to resume his antihypertensives currently, and to follow-up with his primary care provider in 1 to 3 days with a BMP. He complained of some loose stool at home. This was not present until Kayexalate was given. A C. difficile was obtained which was negative. If loose stool returns, he will follow-up with his primary care provider regarding this. He will continue to use his nystatin cream, until rash is gone. I discussed this plan with the patient and he agrees with it. Physical Exam Narrative: General exam no distress Neck is supple Cardiovascular regular rate and rhythm Lungs clear Abdomen is soft nontender Extremities no cyanosis clubbing or edema Skin demonstrates a much improved rash Discharge Data Studies Completed and Pending Completed Studies During Hospitalization Category Date Time Status XR chest 1V portable [id number] Stat Exams 04/07/21 10:17 Completed CV. echo complete* [id number] Routine Ultrasound 04/07/21 14:44 Completed US renal BI* [id number] Stat Ultrasound 04/07/21 11:52 Completed Pending at discharge Category Date Time Status Blood Culture Stat Lab 04/07/21 09:51 Results CDIFF [Clostridioides Difficile PCR] Routine Lab 04/08/21 Results Stool Culture, Bacterial [Enteric Bacterial Panel by Lab 04/08/21 Results PCR] Routine Urine Protein Electrop Random Routine Lab 04/07/21 11:47 Results stool Ova and Parasite [Enteric Parasite Panel by PCR] Lab 04/08/21 Results Routine Radiology Impressions Chest X-Ray 04/07/21 10:17 IMPRESSION: Bilateral bilateral mild pulmonary opacifications, consider pneumonitis and Covid pneumonia. Renal Ultrasound 04/07/21 11:52 IMPRESSION: Normal renal ultrasound. Laboratory Results WBC 11.9 10^3/uL (4.0-10.0) H 04/09/21 03:27 RBC 3.99 10^6/uL (4.1-5.3) L 04/09/21 03:27 Hgb 11.1 g/dL (11.7-16.6) L 04/09/21 03:27 Hct 35.1 % (42.0-52.0) L 04/09/21 03:27 MCV 88.0 fl (80-94) 04/09/21 03:27 MCH 27.8 pg (28.0-34.0) L 04/09/21 03:27 MCHC 31.6 g/dL (30.0-36.0) 04/09/21 03:27 RDW 14.9 % (12.1-15.1) 04/09/21 03:27 Plt Count 282 10^3/cmm (130-400) 04/09/21 03:27 MPV 11.5 fL (7.4-10.4) H 04/09/21 03:27 Neut % (Auto) 59.8 % 04/09/21 03:27 Lymph % (Auto) 30.1 % 04/09/21 03:27 Sebastian % (Auto) 7.6 % 04/09/21 03:27 Eos % (Auto) 0.9 % 04/09/21 03:27 Baso % (Auto) 0.3 % 04/09/21 03:27 Neut # (Auto) 7.15 10^3/uL (1.8-7.7) 04/09/21 03:27 Lymph # (Auto) 3.6 10^3/uL (0.8-4.8) 04/09/21 03:27 Sebastian # (Auto) 0.9 10^3/uL (0.2-0.9) 04/09/21 03:27 Eos # (Auto) 0.1 10^3/uL (0.0-0.8) 04/09/21 03:27 Baso # (Auto) 0.0 10^3/uL (0.0-0.1) 04/09/21 03:27 Nucleated RBC % (auto) 0 % 04/09/21 03:27 Nucleated RBCs # 0.0 /100WBC 04/09/21 03:27 Specimen Type Arterial 04/07/21 10:55 Sample Site Brachial, left 04/07/21 10:55 ABG pH 7.23 (7.35-7.45) L 04/07/21 10:55 ABG pCO2 23.4 mmHg (35-45) L 04/07/21 10:55 ABG pO2 76.9 mmHg (80.0-100.0) L 04/07/21 10:55 ABG HCO3 9.9 mmol/L (22-26) L 04/07/21 10:55 ABG O2 Saturation 92.3 04/07/21 10:55 ABG Base Excess -15.8 mmol/L (-2.0-2.0) L 04/07/21 10:55 Jayden Test Pos 04/07/21 10:55 A-a O2 Gradient 5.7 mmHg (5-10) 04/07/21 10:55 Hematocrit 40.7 % (42-52) L 04/07/21 10:55 Hgb O2 Saturation 91.4 % (95-100) L 04/07/21 10:55 Carboxyhemoglobin < 0.0 %THgb (0.4-20.1) L 04/07/21 10:55 Methemoglobin 1.0 % (0.4-1.5) 04/07/21 10:55 Total Hemoglobin 13.3 g/dL (14-18) L 04/07/21 10:55 Sodium 140.0 mmol/L (131-143) 04/07/21 10:55 Potassium 6.2 mmol/L (3.5-5.0) H 04/07/21 10:55 Glucose 124.0 mg/dL (70-115) H 04/07/21 10:55 Ionized Calcium 1.2 mmol/L (1.1-1.4) 04/07/21 10:55 O2 Delivery Device Room air 04/07/21 10:55 Corrosion Control Fitter ID Adam 04/07/21 10:55 Sodium 144 mmol/L (136-145) 04/09/21 03:27 Potassium 4.8 mmol/L (3.5-5.1) 04/09/21 03:27 Chloride 119 mmol/L (98-107) H 04/09/21 03:27 Carbon Dioxide 16 mmol/L (22-29) L 04/09/21 03:27 Anion Gap 13.8 (5-19) 04/09/21 03:27 BUN 75 mg/dL (6-20) H 04/09/21 03:27 Creatinine 1.8 mg/dL (0.7-1.2) H 04/09/21 03:27 GFR Calculation 38.9 mL/min (90-130) L 04/09/21 03:27 Glucose 112 mg/dL (65-115) 04/09/21 03:27 Calculated Osmolality 321 mOsm/kg (285-295) H 04/09/21 03:27 Lactic Acid 0.9 mmol/L (0.5-2.2) 04/07/21 09:51 Uric Acid 16.1 mg/dL (3.4-7.0) H 04/07/21 09:51 Calcium 8.9 mg/dL (8.5-10.5) 04/09/21 03:27 Magnesium 2.0 mg/dL (1.7-2.3) 04/08/21 05:42 Total Bilirubin 0.4 mg/dL (0.15-1.2) 04/08/21 05:42 AST 11 U/L (0-40) 04/08/21 05:42 ALT 9 U/L (0-41) 04/08/21 05:42 Alkaline Phosphatase 52 IU/L (40-130) 04/08/21 05:42 Creatine Kinase 95 U/L (39-308) 04/07/21 09:51 Creatine Kinase Cancelled 04/07/21 09:51 Troponin T Baseline 97 ng/L (0-15) H 04/07/21 09:51 Troponin T 120 Minute 76.97 ng/L (0-15) H 04/07/21 11:46 Delta Troponin T -20.03 ABS# (0-10) L 04/07/21 11:46 Troponin T Hi Sens 6Hr 64.47 ng/L (0-15) H 04/07/21 16:35 Troponin T Hi Sens 6Hr Delta -32.53 ng/L (0-12) L 04/07/21 16:35 Total Protein 6.2 g/dL (6.6-8.7) L 04/08/21 05:42 Albumin 3.0 g/dL (3.5-5.2) L 04/08/21 05:42 Globulin 3.2 g/dL (1.3-4.6) 04/08/21 05:42 Ldcgf-9-Kkzsviyzf 0.6 g/dL (0.2-0.3) H 04/07/21 13:38 Futnd-2-Rzzxnagxo 0.9 g/dL (0.5-0.9) 04/07/21 13:38 Fham-2-[place]ve[place] 0.3 g/dL (0.4-0.6) L 04/07/21 13:38 Saow-8-Qputccjl 0.4 g/dL (0.2-0.5) 04/07/21 13:38 Gamma Globulins 0.9 g/dL (0.8-1.7) 04/07/21 13:38 Abnorm Protein Band 1 0.4 g/dL (NONE DETECTED) H 04/07/21 13:38 Urine Color Dark yellow (Yellow) 04/07/21 11:47 Urine Appearance Sl hazy (CLEAR) 04/07/21 11:47 Urine pH 5 (5-7) 04/07/21 11:47 Ur Specific [place] 1.020 (1.005-1.030) 04/07/21 11:47 Urine Protein 1+ (Negative) H 04/07/21 11:47 Urine Glucose (UA) Norm (Normal) 04/07/21 11:47 Urine Ketones 1+ (Negative) H 04/07/21 11:47 Urine Blood 2+ (Negative) H 04/07/21 11:47 Urine Nitrate Negative (Negative) 04/07/21 11:47 Urine Bilirubin 1+ (Negative) H 04/07/21 11:47 Urine Urobilinogen Norm mg/dL (Negative) 04/07/21 11:47 Ur Leukocyte Esterase 2+ (Negative) H 04/07/21 11:47 Urine RBC 5-10 /hpf (0-2) H 04/07/21 11:47 Urine WBC 10-15 /hpf (0-5) H 04/07/21 11:47 Ur Squamous Epith Cells Rare /hpf (0-5) 04/07/21 11:47 Amorphous Sediment 2+ /hpf 04/07/21 11:47 Urine Bacteria 1+ /hpf (NONE) H 04/07/21 11:47 Coarse Granular Casts 5-10 /lpf H 04/07/21 11:47 Ur Random Creatinine 409 mg/dL (20-320) H 04/07/21 11:47 U Random Total Protein 86 mg/dL (5-25) H 04/07/21 11:47 Ur Random Sodium 46 mmol/L 04/07/21 11:47 Urine Creatinine 376 mg/dL (39-259) H 04/07/21 11:47 Protein/Creatinin Ratio 210 mg/g creat (22-128) H 04/07/21 11:47 Protein/Creat Ratio 24h 0.210 (0.022-0.128) H 04/07/21 11:47 U Abnormal Prot Band 2 Not Reportable 04/07/21 13:38 U Abnormal Prot Band 3 Not Reportable 04/07/21 13:38 Salicylates < 0.3 mg/dL (3-10) L 04/07/21 09:51 Acetaminophen < 5.0 ug/mL (10-30) L 04/07/21 09:51 Ethyl Alcohol < 10 mg/dL (0-10) 04/07/21 09:51 Serum Ketones Negative (Negative) 04/07/21 09:51 Pro Electrophoresis Int See note 04/07/21 13:38 Coronavirus 229E (PCR) Not detected (NOT DETECT) 04/07/21 11:00 Hepatitis A IgM Ab Non-reactive (Nonreactive) 04/07/21 09:51 Hep Bs Antigen Non-reactive (Nonreactive) 04/07/21 09:51 Hep B Core IgM Ab Non-reactive (Nonreactive) 04/07/21 09:51 Hepatitis C Antibody Non-reactive (Nonreactive) 04/07/21 09:51 HIV 1&2 Ab & HIV 1 Ag Non-reactive (Non-Reactiv) 04/07/21 09:51 HIV 1&2 Antibody Non-reactive (Non-Reactiv) 04/07/21 09:51 SARS-CoV-2 (PCR) Not detected (NOT DETECT) 04/07/21 11:00 Vitals Last Vital Signs Temp 98.4 F 04/09/21 04:00 Pulse 84 04/09/21 08:53 Resp 18 04/09/21 08:53 BP 135/91 04/09/21 06:01 Pulse Ox 97 04/09/21 08:53 Discharge Plan Discharge Patient Disposition: Home Condition: Stable Prescriptions: New nystatin 100,000 unit/gram Cream 1 applic topical BID Qty: 60 0RF Continued omeprazole 20 mg capsule,delayed release(DR/EC) 20 mg PO DAILY 0RF aspirin [Adult Aspirin Regimen] 81 mg tablet,delayed release (DR/EC) 81 mg PO DAILY 0RF simvastatin 20 mg tablet 20 mg PO DAILY 0RF fluticasone propion-salmeterol [Advair Diskus] 500-50 mcg/dose blister with device 1 inh inhalation BID 0RF albuterol sulfate [Ventolin HFA] 90 mcg/actuation HFA aerosol inhaler 2 puff inhalation Q6H PRN (Reason: Dyspnea) 0RF Discontinued gabapentin 600 mg tablet 600 mg PO TID 0RF triamterene-hydrochlorothiazid 37.5-25 mg capsule 1 cap PO DAILY 0RF tizanidine [Zanaflex] 4 mg tablet 4 mg PO TID PRN (Reason: Muscle Spasm) 0RF metoprolol succinate 50 mg tablet extended release 24 hr 50 mg PO DAILY 0RF lisinopril 20 mg tablet 20 mg PO DAILY 0RF meloxicam 15 mg tablet 15 mg PO DAILY 0RF hydrocodone-acetaminophen 5-325 mg tablet 1 - 2 tab PO .Q4-6H PRN (Reason: pain) 7 Days Qty: 40 0RF Discharge Orders: Discharge Order (Routine); Ordered 04/09/21 Ordered By: Jsohua Jarrett Referrals: Tai Moser NP [Primary Care Provider] - 1-3 days (BMP on follow-up) Discharge Diet: Cardiac Discharge Activity: Increase activity as tolerated Patient Instructions: Opioid Safety Activity Restrictions/Additional Instructions: Low potassium diet. Avoid all anti-inflammatories. Follow-up with your primary care provider, and BMP on follow-up. Encourage hydration. Your primary will investigate loose stool if it is still present. Discharge Attestations Time Spent in Discharge Care*: greater than 30 min Quality Metrics Clinical Quality Measures [ No reported AMI, CVA or VTE this stay] Coding Level of Care Code Acute Chg [facility] note Diagnoses Acute kidney injury N17.9
--- NOTE | 2021-04-09 12:52 | PC.NURSE ---
Dr. Jarrett to bedside. States he will place discharge orders for patient.
--- NOTE | 2021-04-09 13:03 | PC.NURSE ---
Nystatin reapplied. Dry and open to air.
--- NOTE | 2021-04-09 13:26 | PC.NURSE ---
Patient up and walking around room with SCDs removed. Heparin given for VTE.
--- NOTE | 2021-04-09 14:17 | PC.NURSE ---
Call placed to patient's ride to notify them of discharge. IV removed intact without incident by MARINA Bruno. Patient tolerated well.
--- NOTE | 2021-04-09 15:11 | PC.NURSE ---
Patient out of unit at 15:11
[2021-04-09 16:21] LABS: Abnormal Protein Band 1 3 mg/dL (NONE DETECTED); Albumin,Urine Random 43 %; Alpha-1-Globulins Urine Random 3 %; Alpha-2-Globulins Urine Random 21 %; Beta-Globulin,Urine Random 17 %; Gamma Globulin,Urine Random 16 %
== END 2021-04-09 15:10 | disposition home or self-care (01) | DRG 640 ==
LOC: ER 10:30 → ER IP 17:31 → ICU 20:25
PROVIDERS: Internal Medicine Nephrology; Admitting Provider Internal Medicine; Emergency Provider Family Medicine; PCP Nurse Practitioner Family; Visit Provider Internal Medicine
DX: E87.5 Hyperkalemia (principal); N17.0 Acute kidney failure with tubular necrosis; N39.0 Urinary tract infection, site not specified; E87.2 Acidosis; G89.29 Other chronic pain; M54.40 Lumbago with sciatica, unspecified side; K21.9 Gastro-esophageal reflux disease without esophagitis; I10 Essential (primary) hypertension; E78.5 Hyperlipidemia, unspecified; M41.9 Scoliosis, unspecified; I95.9 Hypotension, unspecified; B35.6 Tinea cruris; Z86.16 Personal history of COVID-19; Z79.82 Long term (current) use of aspirin
CPT/HCPCS: 36415; 36600; 71045; 76770; 80048; 80051; 80053; 80074; 80307; 81001; 82009; 82330; 82550; 82570; 82575; 82805; 83605; 83735; 84155; 84156; 84165; 84166; 84300; 84484; 84550; 85025; 87040; 87086; 87493; 87506; 87635; 87806; 93005; 93306; 94640; 96361; 96365; 96367; 96372; 96375; 99291; J0696; J1644; J1815; J3490; J7030; J7611; Q3014

== ENCOUNTER → 2021-04-16 09:18 | Outpatient (BNVA) | payer MEDICARE, MEDICAID, SELFPAY | PROVIDERS: PCP Nurse Practitioner Family; Visit Provider Anesthesiology Pain Medicine | DX: G89.29 Other chronic pain (principal); M47.816 Spondylosis without myelopathy or radiculopathy, lumbar region; M51.16 Intervertebral disc disorders with radiculopathy, lumbar region; M54.2 Cervicalgia; M79.605 Pain in left leg; F17.210 Nicotine dependence, cigarettes, uncomplicated | CPT/HCPCS: 99214 ==

== ENCOUNTER 2021-04-29 17:33 | Emergency (ER) | payer MEDICARE, MEDICAID, SELFPAY ==
[2021-04-29 17:54] VITALS: BP 122/76; PULSE 90; RESP 16; TEMP 36.8; O2SAT 95; BMI 29.0
--- NOTE | 2021-04-29 18:00 | W.ED.NECK ---
HPI - Neck Pain/Injury General: Chief Complaint: Neck Pain/Injury Stated Complaint: Neck pain on left side Time Seen by Provider: 04/29/21 18:00 History of Present Illness: 60-year-old male patient comes in today with complaints of neck discomfort. Review of medical history patient has a chronic back and neck pain. Patient reports for the last 2 to 3 days he has had increasing pain to his neck. Patient does not use any agqu-rlr-emtvldi medicine, and has recently been unprescribed medications for his chronic pain due to GEORGE. Review of the record indicates this GEORGE incident which patient's creatinine had jumped up to 6.9. Patient had been on meloxicam and tizanidine. I did note a cervical spine x-ray that was done at the end of November 2020 that indicated degenerative disc disease in the C4-C5 area. Patient denies any injury or numbness or tingling and bilateral upper extremities. Patient reports difficulty with moving neck to the left at this time. Patient does appear in mild pain to moderate pain. Patient appears well. Review of Systems General: Reports: 10 or more systems reviewed and unremarkable except in HPI and below Const: Denies: fever(s) Musc: Reports: neck pain PFSH ED PFSH: Medical History Chronic back pain GERD (gastroesophageal reflux disease) History of esophageal dilatation History of hypertension History of sciatica Hyperlipidemia Scoliosis Surgical History History of appendectomy History of hernia repair History of lumbar laminectomy Social History Smoking and tobacco status: current every day smoker cigarettes Packs smoked per day: 1 Years cigarettes smoked: 40 Alcohol intake: current Alcohol intake frequency: other Lives independently: Yes History of recent travel: Yes Details: recently moved from [place] Out of state: Yes Physical Exam Const: COMMON NORMALS: alert Neck/C-Spine: CERVICAL SPINE: Yes pain with cervical ROM with rotation to the left and Yes Paracervical muscle tenderness Lymph: LYMPHATIC: no lymphadenopathy noted Resp: COMMON NORMALS: normal respiratory effort Cardio: COMMON NORMALS: regular rate and regular rhythm RATE: regular rate RHYTHM: regular rhythm GI: COMMON NORMALS: Normal to inspection, nondistended, normoactive bowel sounds present Extremity: COMMON NORMALS: normal to inspection and full ROM Neuro: SENSORIUM/ORIENTATION: Yes alert Psych: COMMON NORMALS: cooperative Skin: COMMON NORMALS: no rashes or lesions noted GENERAL SKIN EXAM: no rashes or lesions noted Course Vital Signs: Vital signs: Vital Signs Temperature 98.2 F 04/29/21 17:54 Pulse Rate 90 04/29/21 17:54 Respiratory Rate 16 04/29/21 17:54 Blood Pressure 122/76 04/29/21 17:54 Pulse Oximetry 95 04/29/21 17:54 MDM - Neck Pain/Injury Medical Decision Making Patient comes in today for complaints of exacerbation of neck pain. Patient reports worsening pain for last 3 months. On exam respirations are even lungs are clear to auscultation. Skin is warm and dry. Vital signs are normal. Patient does have some tenderness to the paraspinous muscles of the cervical spine. Some tenderness is noted on palpation of the cervical spine in the C4-C5 area. Differential diagnosis includes but not limited to intervertebral disc disease, facet arthropathy, muscle strain. I believe this is probably exacerbation of patient's chronic pain. I reviewed with patient that we cannot manage chronic pain in the ER. I did give patient a dose of hydrocodone and a shot of dexamethasone to help with pain and inflammation. Patient was also prescribed 7 tablets of hydrocodone to use for severe pain. Patient was recommended to use oenh-xbu-mxzcoum Tylenol otherwise for pain. Patient should follow-up with primary care. Patient reported understanding agreed to plan. Discharge Plan Discharge Patient Disposition: Home Clinical Impression: DDD (degenerative disc disease), cervical Condition: Stable Prescriptions: New hydrocodone-acetaminophen 5-325 mg tablet 1 tab PO Q8H PRN (Reason: pain) Qty: 7 0RF No Action omeprazole 20 mg capsule,delayed release(DR/EC) 20 mg PO DAILY 0RF aspirin [Adult Aspirin Regimen] 81 mg tablet,delayed release (DR/EC) 81 mg PO DAILY 0RF simvastatin 20 mg tablet 20 mg PO DAILY 0RF fluticasone propion-salmeterol [Advair Diskus] 500-50 mcg/dose blister with device 1 inh inhalation BID 0RF albuterol sulfate [Ventolin HFA] 90 mcg/actuation HFA aerosol inhaler 2 puff inhalation Q6H PRN (Reason: Dyspnea) 0RF nystatin 100,000 unit/gram Cream 1 applic topical BID Qty: 60 0RF Discharge Orders: Discharge ED (Routine); Ordered 04/29/21 Ordered By: Michael Damon Referrals: Tai Moser NP [Primary Care Provider] - Discharge Diet: Usual diet Discharge Activity: Increase activity as tolerated Patient Instructions: Chronic Neck Pain (DC), Opioid Safety Activity Restrictions/Additional Instructions: Use ice or heat to the area for comfort. You may use ualu-[id number]-[id number] acetaminophen, Tylenol, as bottle directs to help control your pain. You may also use other muscle rubs to help with pain and discomfort. Drink plenty of water with medication. Maintain activity as normal as possible. Follow-up with primary care in 1 week for recheck. Return to ER for new concerns or worsening symptoms. The emergency room would not manage chronic pain you may need to have follow-up with the metal painter for further treatment. Coding Level of Care Code ED Academic Department Chair for Axel Stack
[2021-04-29] MEDS: HYDROcodone-acetaminophen 5-325 mg Tablet 1 TAB PO (18:38)
[2021-04-29] MEDS: dexamethasone 10 mg/mL INJ IM (18:39)
== END 2021-04-29 18:49 | disposition home or self-care (01) ==
PROVIDERS: Emergency Provider Nurse Practitioner Family; PCP Nurse Practitioner Family
DX: M50.30 Other cervical disc degeneration, unspecified cervical region (principal); Z79.82 Long term (current) use of aspirin; I10 Essential (primary) hypertension; E78.5 Hyperlipidemia, unspecified; F17.210 Nicotine dependence, cigarettes, uncomplicated
CPT/HCPCS: 96372; 99283; J1100

== ENCOUNTER → 2021-05-05 13:28 | Outpatient (BNVA) | payer MEDICARE, MEDICAID, SELFPAY | PROVIDERS: PCP Nurse Practitioner Family; Visit Provider Anesthesiology Pain Medicine | DX: M54.16 Radiculopathy, lumbar region (principal); F17.210 Nicotine dependence, cigarettes, uncomplicated | CPT/HCPCS: 64483; 64484; J1100; J3490 ==

== ENCOUNTER → 2021-05-12 11:01 | Outpatient (BNVA) | payer MEDICARE, MEDICAID, SELFPAY | PROVIDERS: PCP Nurse Practitioner Family; Referring Provider Nurse Practitioner Family; Visit Provider Specialist | DX: M19.011 Primary osteoarthritis, right shoulder (principal); M25.511 Pain in right shoulder | CPT/HCPCS: 73030 ==

== ENCOUNTER 2021-05-13 16:27 | Emergency (ER) | payer MEDICARE, MEDICAID, SELFPAY ==
[2021-05-13 16:37] VITALS: BP 122/89; PULSE 79; RESP 16; TEMP 37.1; O2SAT 97; BMI 30.7
--- NOTE | 2021-05-13 16:47 | XRR_ITS ---
PROCEDURE INFORMATION: Exam: XR Chest Exam date and time: 05/13/2021 4:47 PM Age: 60 years old Clinical indication: Pain; Angina pectoris; Additional info: Chest pain TECHNIQUE: Imaging protocol: XR of the chest. Views: 1 view. COMPARISON: CR XR chest 1V portable [id number] 04/07/2021 10:30 AM FINDINGS: Lungs: Subtle residual patchy airspace disease in the left lower lobe versus lingula about the costophrenic angle. Overall, findings are improved. Pleural spaces: Unremarkable. No pleural effusion. No pneumothorax. Heart/Mediastinum: Unremarkable. No cardiomegaly. Bones/joints: Unremarkable. XR/XR chest 1V portable [id number] IMPRESSION: Subtle residual patchy airspace disease in the left lower lobe versus lingula about the costophrenic angle. Overall, findings are improved.
--- NOTE | 2021-05-13 16:47 | ECG_ITS ---
[facility] Test Date: 2021-05-13 Pat Name: Sadi Paniagua Department: Room: Gender: Male Sanitarian: : 1960 Requested By: Maxim Tracy Order Number: [id number] Lina MD: Tano Shaffer M.D. Measurements Intervals [place] Rate: P: MT: QRS: QRSD: T: QT: QTc: Interpretive Statements NO FURTHER INTERPRETATION POSSIBLE ATYPICAL ECG WARNING: DATA QUALITY MAY AFFECT INTERPRETATION No previous ECG available for comparison Electronically Signed On 05-13-2021 22:23:06 CDT by Tano Shaffer M.D. [id number] f
[2021-05-13 16:53] VITALS: BP 122/89; PULSE 79; RESP 16; TEMP 37.1; O2SAT 97
--- NOTE | 2021-05-13 17:09 | PC.PHAR ---
pt states he takes care of his own medications-pt states he is no longer taking the mobic rx filled on 04/11/21 90d/s-
[2021-05-13 17:15] LABS: Basophils % 0.2 %; Eosinophils # 0.6 10^3/uL (0.0-0.8); Eosinophils % 3.7 %; Hematocrit 39.9 % (42.0-52.0); Hemoglobin 12.9 g/dL (11.7-16.6); Lymphocytes # 6.7 10^3/uL (0.8-4.8); Lymphocytes % 39.6 %; Mean Corpuscular HGB Conc 32.3 g/dL (30.0-36.0); Mean Corpuscular Hemoglobin 28.3 pg (28.0-34.0); Mean Corpuscular Volume 87.5 fl (80-94); Mean Platelet Volume 11.2 fL (7.4-10.4); Monocytes # 0.8 10^3/uL (0.2-0.9); Monocytes % 4.5 %; Neutrophils # 8.62 10^3/uL (1.8-7.7); Neutrophils % 50.7 %; Nucleated Red Blood Cells % 0 %; Platelet Count 257 10^3/cmm (130-400); Red Blood Count 4.56 10^6/uL (4.1-5.3); Red Cell Distribution Width 14.7 % (12.1-15.1)
--- NOTE | 2021-05-13 17:21 | ED_ITS ---
Documented by User: Maxim Santos DO 05/14/21 05:13 HPI - Chest Pain General: Chief Complaint: Chest Pain Stated Complaint: Chest Pain Time Seen by Provider: 05/13/21 16:46 Source: patient Mode of arrival: ambulatory Limitations: no limitations History of Present Illness: 60-year-old male presents emergency room complaining of left-sided chest pain that radiates into his left arm. Started yesterday. Is not had any diaphoresis or nausea with it is reproducible with palpation across the chest during exam today. He is not had any fever sweats or chills. No productive cough. No dysuria urgency or frequency he has no known history of coronary artery disease is not previously had any bypass or any kind of intervention. MD complaint: chest pain Onset (ago): minute(s) Timing of current episode: episodic and constant Prior episodes: Yes Onset: during rest Pain location: substernal Pain radiation: none Severity: mild Quality: tightness Relieving factors: nothing Exacerbating factors: nothing Context: recent illness Associated symptoms: Reports dyspnea; Deny abdominal pain, diaphoresis, fever(s), leg edema, nausea, palpitations, sense of impending doom, syncope or vomiting Treatment prior to arrival: none Review of Systems 2 Const: Denies: fever(s) or diaphoresis ENMT: Denies: throat pain, ear or mastoid pain, nasal discharge or nasal congestion Card: Denies: palpitations or syncope Resp: Reports: dyspnea GI: Denies: abdominal pain, nausea or vomiting : Denies: flank pain, dysuria, urinary frequency or urinary urgency Skin/Breast: Denies: rash or pruritus PFSH ED 2 PFSH: Medical History Chronic back pain GERD (gastroesophageal reflux disease) History of esophageal dilatation History of hypertension History of sciatica Hyperlipidemia Scoliosis Surgical History History of appendectomy History of hernia repair History of lumbar laminectomy Social History Smoking and tobacco status: current every day smoker cigarettes Packs smoked per day: 1 Years cigarettes smoked: 40 Alcohol intake: current Alcohol intake frequency: other Lives independently: Yes History of recent travel: Yes Details: recently moved from [place] Out of state: Yes Physical Exam Const: COMMON NORMALS: no acute distress GENERAL APPEARANCE: cooperative and comfortable ORIENTATION/CONSCIOUSNESS: Yes awake, Yes oriented to person, Yes oriented to place and Yes oriented to time HENMT: COMMON NORMALS: normocephalic, atraumatic and hearing grossly normal bilaterally HEAD & SCALP: normocephalic and atraumatic Neck/C-Spine: COMMON NORMALS: no JVD Chest: CHEST: Yes tenderness sternum Resp: COMMON NORMALS: normal respiratory effort, No retractions, No use of accessory muscles and clear to auscultation bilaterally AUSCULTATION: clear to auscultation bilaterally Cardio: COMMON NORMALS: no JVD, regular rate, regular rhythm and No murmurs present (Cardio) RATE: regular rate RHYTHM: regular rhythm GI: COMMON NORMALS: Soft to palpation and No hepatosplenomegaly present AUSCULTATION: Yes normoactive bowel sounds PALPATION: Yes Soft to palpation, No Tenderness to palpation present (GI), No Guarding due to palpation present (GI) and Yes No hepatosplenomegaly present Extremity: COMMON NORMALS: normal to inspection, capillary refill normal, no clubbing, cyanosis or edema, no calf tenderness and no pedal edema Neuro: SENSORIUM/ORIENTATION: Yes oriented to person, Yes oriented to place and Yes oriented to time Skin: COMMON NORMALS: no rashes or lesions noted GENERAL SKIN EXAM: no rashes or lesions noted Course Vital Signs: Vital signs: Vital Signs Temperature 98.8 F 05/13/21 16:53 Pulse Rate 71 05/13/21 19:13 Respiratory Rate 16 05/13/21 19:13 Blood Pressure 118/81 05/13/21 19:13 Pulse Oximetry 97 05/13/21 19:13 MDM - Chest Pain Medical Decision Making Care signed out to Dr. Woodruff at change of shift. See final notes for diagnosis and disposition. Patient did have a questionably positive stress test recently has not seen cardiology in follow-up. Reviewed with Dr. Woodruff Medical Records I reviewed the patient's medical records. Lab Data I reviewed the patient's lab results. : 05/13/21 16:50 05/13/21 16:50 Radiology Impressions Chest X-Ray 05/13/21 16:47 IMPRESSION: Subtle residual patchy airspace disease in the left lower lobe versus lingula about the costophrenic angle. Overall, findings are improved. Laboratory Results WBC 17.0 10^3/uL (4.0-10.0) H 05/13/21 16:50 RBC 4.56 10^6/uL (4.1-5.3) 05/13/21 16:50 Hgb 12.9 g/dL (11.7-16.6) 05/13/21 16:50 Hct 39.9 % (42.0-52.0) L 05/13/21 16:50 MCV 87.5 fl (80-94) 05/13/21 16:50 MCH 28.3 pg (28.0-34.0) 05/13/21 16:50 MCHC 32.3 g/dL (30.0-36.0) 05/13/21 16:50 RDW 14.7 % (12.1-15.1) 05/13/21 16:50 Plt Count 257 10^3/cmm (130-400) 05/13/21 16:50 MPV 11.2 fL (7.4-10.4) H 05/13/21 16:50 Neut % (Auto) 50.7 % 05/13/21 16:50 Lymph % (Auto) 39.6 % 05/13/21 16:50 Zavala % (Auto) 4.5 % 05/13/21 16:50 Eos % (Auto) 3.7 % 05/13/21 16:50 Baso % (Auto) 0.2 % 05/13/21 16:50 Neut # (Auto) 8.62 10^3/uL (1.8-7.7) H 05/13/21 16:50 Lymph # (Auto) 6.7 10^3/uL (0.8-4.8) H 05/13/21 16:50 Zavala # (Auto) 0.8 10^3/uL (0.2-0.9) 05/13/21 16:50 Eos # (Auto) 0.6 10^3/uL (0.0-0.8) 05/13/21 16:50 Baso # (Auto) 0.0 10^3/uL (0.0-0.1) 05/13/21 16:50 Nucleated RBC % (auto) 0 % 05/13/21 16:50 Nucleated RBCs # 0.0 /100WBC 05/13/21 16:50 Sodium 140 mmol/L (136-145) 05/13/21 16:50 Potassium 4.3 mmol/L (3.5-5.1) 05/13/21 16:50 Chloride 107 mmol/L (98-107) 05/13/21 16:50 Carbon Dioxide 19 mmol/L (22-29) L 05/13/21 16:50 Anion Gap 18.3 (5-19) 05/13/21 16:50 BUN 13 mg/dL (6-20) 05/13/21 16:50 Creatinine 0.8 mg/dL (0.7-1.2) 05/13/21 16:50 GFR Calculation 99.3 mL/min (90-130) 05/13/21 16:50 Glucose 132 mg/dL (65-115) H 05/13/21 16:50 Calculated Osmolality 292 mOsm/kg (285-295) 05/13/21 16:50 Calcium 9.3 mg/dL (8.5-10.5) 05/13/21 16:50 Total Bilirubin 0.3 mg/dL (0.15-1.2) 05/13/21 16:50 AST 20 U/L (0-40) 05/13/21 16:50 ALT 13 U/L (0-41) 05/13/21 16:50 Alkaline Phosphatase 80 IU/L (40-130) 05/13/21 16:50 Troponin T Baseline 21 ng/L (0-15) H 05/13/21 16:50 Troponin T 120 Minute 18.84 ng/L (0-15) H 05/13/21 19:11 Delta Troponin T -2.16 ABS# (0-10) L 05/13/21 19:11 Total Protein 6.5 g/dL (6.6-8.7) L 05/13/21 16:50 Albumin 3.9 g/dL (3.5-5.2) 05/13/21 16:50 Globulin 2.6 g/dL (1.3-4.6) 05/13/21 16:50 Discharge Plan Discharge Patient Disposition: Home Clinical Impression: Chest pain, Leukocytosis Condition: Stable Prescriptions: No Action omeprazole 20 mg capsule,delayed release(DR/EC) 20 mg PO QAM 0RF aspirin [Adult Aspirin Regimen] 81 mg tablet,delayed release (DR/EC) 81 mg PO QAM 0RF simvastatin 20 mg tablet 20 mg PO QAM 0RF fluticasone propion-salmeterol [Advair Diskus] 500-50 mcg/dose blister with device 1 inh inhalation BID 0RF albuterol sulfate [Ventolin HFA] 90 mcg/actuation HFA aerosol inhaler 2 puff inhalation Q6H PRN (Reason: Shortness Of Breath) 0RF gabapentin 600 mg tablet 600 mg PO TID 0RF tizanidine 4 mg tablet 4 mg PO TID 0RF lisinopril 20 mg tablet 20 mg PO QAM 0RF metoprolol succinate 100 mg tablet extended release 24 hr 150 mg PO QAM 0RF triamterene-hydrochlorothiazid 37.5-25 mg capsule 1 cap PO QAM 0RF nystatin 100,000 unit/gram cream 1 applic TOPICAL BID PRN (Reason: Rash) 0RF Discharge Orders: Discharge ED (Routine); Ordered 05/13/21 Ordered By: Sancho Woodruff Referrals: Tai Moser NP [Primary Care Provider] - Discharge Diet: Usual diet Discharge Activity: Resume usual activity Patient Instructions: Chest Pain (ED), Leukocytosis (ED) Activity Restrictions/Additional Instructions: Thank you for visiting the emergency department. You were seen and evaluated for chest pain. The exact cause of your symptoms is unclear. This does require further evaluation however after discussion you are elected to proceed with this in the outpatient setting. I will message case management for assistance with scheduling with cardiology. Please follow-up with your primary care provider. Please return to the emergency department for worsening symptoms or anything else that you are concerned about and feel needs emergency department leonel luation. Sign Out Sign Out Data: Patient Sign Out occurred on 05/13/21 at 18:37. Patient's care was discussed, and care was transferred from to Sancho Woodruff MD. Post-Handoff Eval: Patient care handoff received from Dr. Santos pending completion of ED evaluation and disposition. Lab studies notable for leukocytosis of somewhat unclear etiology. No significant electrolyte abnormalities. Delta troponin is negative. Chest x-ray with subtle residual patchy airspace disease in the left lower lobe which appears improved from prior. Discussed case with cardiology given previous stress test findings. Overall findings are felt to be related to artifact however in discussion with cardiology service happy to see patient if he is admitted. I discussed results of ED evaluation with the patient. I offered admission based on heart score and previous studies. The patient prefers outpatient follow-up. Return precautions, follow-up plan, symptoms care discussed with the patient. He verbalized understanding and felt safe for discharge. Satisfactory for outpatient management. Sancho Woodruff MD Emergency Medicine Coding Level of Care Code ED Game [employer] Supervisor for Chg Fwd Exam Comprehensive
[2021-05-13 17:43] VITALS: BP 118/77; PULSE 84; RESP 16; O2SAT 96
[2021-05-13 18:04] VITALS: BP 142/98; PULSE 77; RESP 16; O2SAT 96
[2021-05-13 18:12] LABS: Alanine Aminotransferase 13 U/L (0-41); Albumin Level 3.9 g/dL (3.5-5.2); Alkaline Phosphatase 80 IU/L (40-130); Aspartate Amino Transferase 20 U/L (0-40); Blood Urea Nitrogen 13 mg/dL (6-20); Calcium 9.3 mg/dL (8.5-10.5); Carbon Dioxide 19 mmol/L (22-29); Chloride 107 mmol/L (98-107); Globulin 2.6 g/dL (1.3-4.6); Glomerular Filtration Rate 99.3 mL/min (90-130); Glucose 132 mg/dL (65-115); Osmolality Calculated 292 mOsm/kg (285-295); Sodium 140 mmol/L (136-145); Total Bilirubin 0.3 mg/dL (0.15-1.2); Total Protein 6.5 g/dL (6.6-8.7); Troponin(5th) Baseline 21 ng/L (0-15)
[2021-05-13 18:15] LABS: Anion Gap 18.3 (5-19); Potassium 4.3 mmol/L (3.5-5.1)
--- NOTE | 2021-05-13 18:47 | ECG_ITS ---
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 Measurements Intervals [place] Rate: 70 P: 47 UT: 150 QRS: 53 QRSD: 97 T: 38 QT: 358 QTc: 389 Interpretive Statements SINUS RHYTHM Compared to ECG 05/13/2021 15:45:11 No significant changes Electronically Signed On 05-14-2021 20:24:48 CDT by Tano Shaffer M.D. [email or web address]
[2021-05-13 19:13] VITALS: BP 118/81; PULSE 71; RESP 16; O2SAT 97
[2021-05-13 19:57] LABS: Troponin 5 2HR 18.84 ng/L (0-15); Troponin 5 2HR Delta -2.16 ABS# (0-10)
--- NOTE | 2021-05-21 15:08 | DCPLANNER ---
Addendum entered by Noni Bergeron 07/17/21 10:10: Patient had a follow up appointment scheduled for 07.16.[address] Shaffer - patient did attend appointment. Original Note: global manager had message to schedule a follow up appointment for patient with [facility]. global manager called [facility], spoke with Cara Hernandez, gave clinic patients information. A follow up appointment was scheduled for Wednesday, July 16, 2021 at 1:[address] Bolton. global manager called phone number [phone], unable to speak with patient, a voicemail was left for patient with the appointment information.
== END 2021-05-13 20:53 | disposition home or self-care (01) ==
PROVIDERS: Family Medicine; Emergency Provider Emergency Medicine; PCP Nurse Practitioner Family
DX: R07.9 Chest pain, unspecified (principal); D72.829 Elevated white blood cell count, unspecified; Z79.82 Long term (current) use of aspirin; I10 Essential (primary) hypertension; E78.5 Hyperlipidemia, unspecified; F17.210 Nicotine dependence, cigarettes, uncomplicated
CPT/HCPCS: 71045; 80053; 84484; 85025; 93005; 99284

== ENCOUNTER → 2021-05-20 10:55 | Outpatient (BNVA) | payer MEDICARE, MEDICAID, SELFPAY | PROVIDERS: PCP Nurse Practitioner Family; Visit Provider Anesthesiology Pain Medicine | DX: G89.29 Other chronic pain (principal); M47.816 Spondylosis without myelopathy or radiculopathy, lumbar region; M51.16 Intervertebral disc disorders with radiculopathy, lumbar region; M54.2 Cervicalgia; F17.210 Nicotine dependence, cigarettes, uncomplicated | CPT/HCPCS: 99214 ==

== ENCOUNTER → 2021-06-02 13:51 | Outpatient (BNVA) | payer MEDICARE, MEDICAID, SELFPAY | PROVIDERS: PCP Nurse Practitioner Family; Visit Provider Anesthesiology Pain Medicine | DX: F17.210 Nicotine dependence, cigarettes, uncomplicated (principal); Z79.891 Long term (current) use of opiate analgesic; M47.816 Spondylosis without myelopathy or radiculopathy, lumbar region | CPT/HCPCS: 64493; 64494; 64495; J3490 ==

== ENCOUNTER → 2021-06-16 10:00 | Outpatient (BNVA) | payer MEDICARE, MEDICAID, SELFPAY | PROVIDERS: PCP Nurse Practitioner Family; Visit Provider Anesthesiology Pain Medicine | DX: G89.29 Other chronic pain (principal); M47.816 Spondylosis without myelopathy or radiculopathy, lumbar region; M51.16 Intervertebral disc disorders with radiculopathy, lumbar region; M79.604 Pain in right leg; M79.605 Pain in left leg; F17.210 Nicotine dependence, cigarettes, uncomplicated | CPT/HCPCS: 99214 ==

== ENCOUNTER 2021-06-25 08:30 | Outpatient (CLI) | payer MEDICARE, MEDICAID, SELFPAY ==
--- NOTE | 2021-06-25 08:39 | FL_ITS ---
WS: [id number] Upper GI with air-contrast and small bowel follow-through, 06/25/2021 Clinical Data: ABNORMAL ABDOMINAL IMAGING Comparison: None. Fluoroscopy time: 1.8 minutes # of spot films: 21 Findings: The patient swallowed the barium, and it flowed normally through the hypopharynx into the esophagus. No hiatal hernia, reflux, esophagitis, mass, polyp or erosion was seen. The barium passed into the stomach which was well distended and free of ulcer or deformity. No extrin sic mass could be seen. The barium then passed into the duodenal bulb which was well-distended and free of ulceration. The re mainder of the duodenum filled normally.. The jejunum and ileum were not remarkable. The terminal ileum is minimally patulous but there is no e vidence of any obstruction. The barium then flowed into the cecum and ascending colon. No evidence of any small bowel mass or obs truction could be seen. There is a dextroscoliosis of lumbar spine with osteoarthritis. FL/FL upperGI air smallbowel ser* Impression: Negative upper GI series with small bowel follow-through.
== END 2021-06-25 08:31 | disposition home or self-care (01) ==
LOC: RAD 08:31
PROVIDERS: PCP Nurse Practitioner Family; Visit Provider Nurse Practitioner Family
DX: R93.5 Abnormal findings on diagnostic imaging of other abdominal regions, including retroperitoneum (principal); M47.816 Spondylosis without myelopathy or radiculopathy, lumbar region
CPT/HCPCS: 74246; 74248

== ENCOUNTER 2021-06-25 08:32 | Outpatient (CLI) | payer MEDICARE, MEDICAID, SELFPAY ==
--- NOTE | 2021-06-25 13:51 | MR_ITS ---
WS: [id number] MRI RIGHT SHOULDER NONCONTRAST TECHNIQUE: Sagittal T2, coronal T1, T2 and proton density imaging. Axial gradient PDE imaging. CLINICAL INFORMATION: M25.511 - Pain in right shoulder COMPARISON: None. FINDINGS: Moderate degenerative arthritis AC joint. Mild downsloping acromion. Slight subacromial spurring. Sma ll amount of subacromial subdeltoid fluid. Impingement on the distal supraspinatus distally. Supraspi natus is intact with mild tendinopathy. Normal infraspinatus. Normal teres minor. Normal subscapularis. Normal biceps tendon in the bicipital groove. Subcoracoid effusion. Biceps labral anchor appears intact. Diffuse thickening and T2 signal abnormality involving the intra -articular biceps tendon compatible with tendinopathy. Intra-articular biceps tendon appears intact. Subchondral cystic change involving the greater tuberosity. Degenerative fraying of the glenoid labru m. MR/MR shoulder RT wo con* [id number] IMPRESSION: 1. Moderate degenerative arthritis AC joint with downsloping acromion. Impinge ment on the distal supraspinatus with subacromial spurring. Tendinopathy distal supraspinatus. 2. No high-grade rotator cuff tears. 3. Diffuse thickening with tendinopathy involving the intra-articular biceps t endon. Subscapularis appears intact. 4. Subchondral cystic change along the greater tuberosity. 5. Degenerative fraying involving the glenoid labrum. 6. Subcoracoid and subacromial/subdeltoid effusions.
== END 2021-06-25 08:33 | disposition home or self-care (01) ==
LOC: RAD 08:33
PROVIDERS: PCP Nurse Practitioner Family; Visit Provider Specialist
DX: M25.511 Pain in right shoulder (principal); M19.011 Primary osteoarthritis, right shoulder
CPT/HCPCS: 73221

== ENCOUNTER → 2021-06-30 14:12 | Outpatient (BNVA) | payer MEDICARE, MEDICAID, SELFPAY | PROVIDERS: PCP Nurse Practitioner Family; Visit Provider Anesthesiology Pain Medicine | DX: F17.210 Nicotine dependence, cigarettes, uncomplicated (principal); Z79.891 Long term (current) use of opiate analgesic | CPT/HCPCS: 64493; 64494; 64495; J3490 ==

== ENCOUNTER → 2021-07-14 10:53 | Outpatient (BNVA) | payer MEDICARE, MEDICAID, SELFPAY | PROVIDERS: PCP Nurse Practitioner Family; Visit Provider Anesthesiology Pain Medicine | DX: G89.29 Other chronic pain (principal); M47.816 Spondylosis without myelopathy or radiculopathy, lumbar region; M51.16 Intervertebral disc disorders with radiculopathy, lumbar region; M79.604 Pain in right leg; M79.605 Pain in left leg; F17.210 Nicotine dependence, cigarettes, uncomplicated; Z79.891 Long term (current) use of opiate analgesic | CPT/HCPCS: 99214 ==

== ENCOUNTER → 2021-07-16 09:43 | Outpatient (BNVA) | payer MEDICARE, MEDICAID, SELFPAY | PROVIDERS: PCP Nurse Practitioner Family; Visit Provider Specialist | DX: M75.41 Impingement syndrome of right shoulder (principal); R07.9 Chest pain, unspecified; Z86.79 Personal history of other diseases of the circulatory system; I10 Essential (primary) hypertension; F17.210 Nicotine dependence, cigarettes, uncomplicated | CPT/HCPCS: 20610; 99203; 99204; 99213; J1100; J2795; J3301 ==

== ENCOUNTER → 2021-08-11 14:19 | Outpatient (BNVA) | payer MEDICARE, MEDICAID, SELFPAY | PROVIDERS: PCP Nurse Practitioner Family; Visit Provider Anesthesiology Pain Medicine | DX: F17.210 Nicotine dependence, cigarettes, uncomplicated (principal); Z79.891 Long term (current) use of opiate analgesic; M47.816 Spondylosis without myelopathy or radiculopathy, lumbar region | CPT/HCPCS: 64635; 64636; J1030 ==

== ENCOUNTER 2021-08-21 06:00 | Outpatient (RCR) | payer MEDICARE, MEDICAID, SELFPAY | END 2021-08-28 23:59 | disposition home or self-care (01) | LOC: SPT 06:00 | PROVIDERS: PCP Nurse Practitioner Family; Referring Provider Specialist; Visit Provider Specialist | DX: M25.611 Stiffness of right shoulder, not elsewhere classified (principal); M25.811 Other specified joint disorders, right shoulder; M25.511 Pain in right shoulder | CPT/HCPCS: 97161 ==

== ENCOUNTER 2021-10-28 10:07 | Oncology outpatient (recurring) (ONCR) | payer MEDICARE, MEDICAID, SELFPAY ==
[2021-10-28 10:29] LABS: Basophils # 0.1 10^3/uL (0.0-0.1); Basophils % 0.5 %; Eosinophils # 0.6 10^3/uL (0.0-0.8); Hematocrit 42.2 % (42.0-52.0); Hemoglobin 13.7 g/dL (11.7-16.6); Lymphocytes % 52.4 %; Mean Corpuscular HGB Conc 32.5 g/dL (30.0-36.0); Mean Corpuscular Hemoglobin 29.1 pg (28.0-34.0); Mean Corpuscular Volume 89.6 fl (80-94); Mean Platelet Volume 10.8 fL (7.4-10.4); Monocytes # 0.9 10^3/uL (0.2-0.9); Monocytes % 5.7 %; Neutrophils # 5.42 10^3/uL (1.8-7.7); Neutrophils % 35.7 %; Nucleated Red Blood Cells % 0 %; Platelet Count 222 10^3/cmm (130-400); Red Blood Count 4.71 10^6/uL (4.1-5.3); Red Cell Distribution Width 14.6 % (12.1-15.1); White Blood Count 15.2 10^3/uL (4.0-10.0)
[2021-10-28 10:45] LABS: Alanine Aminotransferase 14 U/L (0-41); Albumin Level 4.2 g/dL (3.5-5.2); Alkaline Phosphatase 61 U/L (40-130); Blood Urea Nitrogen 28 mg/dL (6-20); Calcium 9.4 mg/dL (8.5-10.5); Carbon Dioxide 23 mmol/L (22-29); Chloride 105 mmol/L (98-107); Globulin 2.7 g/dL (1.3-4.6); Glomerular Filtration Rate 68.5 mL/min (90-130); Glucose 126 mg/dL (65-115); Osmolality Calculated 293 mOsm/kg (285-295); Sodium 138 mmol/L (136-145); Total Bilirubin 0.2 mg/dL (0.15-1.2); Total Protein 6.9 g/dL (6.6-8.7)
[2021-10-28 10:46] LABS: Anion Gap 14.5 (5-19); Aspartate Amino Transferase 18 U/L (0-40); Lactate Dehydrogenase 259 U/L (135-225); Potassium 4.5 mmol/L (3.5-5.1)
[2021-10-28 12:31] LABS: Hematocrit 41.6 % (42.0-52.0); Hemoglobin 13.7 g/dL (11.7-16.6); Mean Corpuscular HGB Conc 32.9 g/dL (30.0-36.0); Mean Corpuscular Hemoglobin 29.1 pg (28.0-34.0); Mean Corpuscular Volume 88.3 fl (80-94); Mean Platelet Volume 10.5 fL (7.4-10.4); Platelet Count 229 10^3/cmm (130-400); Red Blood Count 4.71 10^6/uL (4.1-5.3); Red Cell Distribution Width 14.5 % (12.1-15.1); White Blood Count 15.9 10^3/uL (4.0-10.0)
[2021-10-28 13:00] LABS: Slide Review Slide Review Perform
[2021-10-28 13:01] LABS: Absolute Eosinophils 0.6 10^3/cmm (0.0-0.7); Absolute Segmented Neutrophil 6.7 10/cmm (1.6-7.1); Band Neutrophils Absolute 0.2 10^3/cmm (0.0-1.2); Eosinophils 4 %; Lymphocytes 40 %; Monocytes Absolute 0.3 10^3/cmm (0.1-0.6); Segmented Neutrophils 42 %; Total Cells Counted 100 (0-100)
[2021-10-28 13:02] LABS: Absolute Neutrophil 6.8 10^3/cmm (1.4-6.5); Lymphocytes Absolute 7.8 10^3/cmm (1.2-3.4); Platelet Estimate Normal (Normal)
[2021-10-30 06:55] LABS: Leukemia Profile (BBPL) See Report; Lymphoma Profile (BBPL) See Report
== END 2021-10-29 23:59 | disposition home or self-care (01) ==
PROVIDERS: Nurse Practitioner; PCP Nurse Practitioner Family; Visit Provider Internal Medicine Hematology & Oncology
DX: D72.829 Elevated white blood cell count, unspecified (principal); F17.210 Nicotine dependence, cigarettes, uncomplicated
CPT/HCPCS: 36415; 80053; 81263; 82232; 83615; 85007; 85025; 88184; 88185; 99214

== ENCOUNTER 2021-11-28 10:20 | Oncology outpatient (recurring) (ONCR) | payer MEDICARE, MEDICAID, SELFPAY ==
[2021-11-27 14:55] LABS: Hematocrit 41.6 % (42.0-52.0); Hemoglobin 13.6 g/dL (11.7-16.6); Mean Corpuscular HGB Conc 32.7 g/dL (30.0-36.0); Mean Corpuscular Hemoglobin 29.6 pg (28.0-34.0); Mean Corpuscular Volume 90.6 fl (80-94); Mean Platelet Volume 10.8 fL (7.4-10.4); Platelet Count 259 10^3/cmm (130-400); Red Blood Count 4.59 10^6/uL (4.1-5.3); Red Cell Distribution Width 14.7 % (12.1-15.1); White Blood Count 17.6 10^3/uL (4.0-10.0)
[2021-11-27 15:57] LABS: Absolute Segmented Neutrophil 6.2 10/cmm (1.6-7.1); Segmented Neutrophils 35 %; Total Cells Counted 100 (0-100)
[2021-11-27 15:58] LABS: Absolute Eosinophils 0.1 10^3/cmm (0.0-0.7); Eosinophils 1 %; Lymphocytes 57 %; Lymphocytes Absolute 10.4 10^3/cmm (1.2-3.4); Monocytes Absolute 1.1 10^3/cmm (0.1-0.6)
[2021-11-27 17:06] LABS: Absolute Neutrophil 6.2 10^3/cmm (1.4-6.5); Platelet Estimate Normal (Normal)
[2021-11-28 10:56] LABS: Basophils # 0.1 10^3/uL (0.0-0.1); Basophils % 0.4 %; Eosinophils # 0.6 10^3/uL (0.0-0.8); Eosinophils % 3.3 %; Hematocrit 42.4 % (42.0-52.0); Lymphocytes # 9.7 10^3/uL (0.8-4.8); Lymphocytes % 54.7 %; Mean Corpuscular Hemoglobin 29.4 pg (28.0-34.0); Mean Corpuscular Volume 89.1 fl (80-94); Mean Platelet Volume 10.8 fL (7.4-10.4); Monocytes # 1.1 10^3/uL (0.2-0.9); Neutrophils # 6.16 10^3/uL (1.8-7.7); Neutrophils % 34.8 %; Nucleated Red Blood Cells % 0 %; Platelet Count 245 10^3/cmm (130-400); Red Blood Count 4.76 10^6/uL (4.1-5.3); Red Cell Distribution Width 14.5 % (12.1-15.1); White Blood Count 17.8 10^3/uL (4.0-10.0)
[2021-11-28 11:15] LABS: Slide Review Slide Review Perform
== END 2021-11-28 23:59 | disposition home or self-care (01) ==
PROVIDERS: PCP Nurse Practitioner Family; Visit Provider Internal Medicine Hematology & Oncology
DX: C91.10 Chronic lymphocytic leukemia of B-cell type not having achieved remission (principal)
CPT/HCPCS: 36415; 85007; 85025; 99214

== ENCOUNTER 2021-12-18 13:50 | Outpatient (CLI) | payer MEDICARE, MEDICAID, SELFPAY ==
--- NOTE | 2021-12-18 15:15 | CTR_ITS ---
PROCEDURE INFORMATION: Exam: CT Chest With Contrast; Diagnostic Exam date and time: 12/18/2021 2:55 PM Age: 61 years old Clinical indication: Condition or disease; Other: Leukemia; Follow-up oncological assessment; Prior surgery; Surgery type: Left inguinal, appy; Additional info: Follow up, [id number] TECHNIQUE: Imaging protocol: Diagnostic computed tomography of the chest with contrast. Radiation optimization: All CT scans at this facility use at least one of these dose optimization techniques: automated exposure control; mA and/or kV adjustment per patient size (includes targeted exams where dose is matched to clinical indication); or iterative reconstruction. Contrast material: OMNI 350; Contrast volume: 95 ml; Contrast route: INTRAVENOUS (IV); COMPARISON: CR XR chest 1V portable [id number] 05/13/2021 3:59 PM RADIATION DOSE METRICS: Total DLP (mGy-cm): 1720.03 FINDINGS: Trachea: The trachea is midline. Lungs: There are normal lung volumes. Mild centrilobular emphysema is seen without change. No interlobular septal thickening or honeycombing to give CT evidence of interstitial lung disease. No regions of consolidation or ground-glass opacity to give CT evidence of pneumonia. Pleural spaces: No pneumothorax. No pleural effusion. Heart: The cardiac chamber size is normal. No pericardial effusion. No significant coronary arterial atherosclerotic vascular calcifications. Lymph nodes: No enlarged lymph nodes. Vasculature: Mildly enlarged central pulmonary arteries are seen, suggestive of pulmonary arterial hypertension. The thoracic aorta appears normal without CT evidence of dissection or aneurysm. Bones/joints: No acute osseous abnormality seen. Soft tissues: Unremarkable. PROCEDURE INFORMATION: Exam: CT Abdomen And Pelvis With Contrast Exam date and time: 12/18/2021 2:55 PM Age: 61 years old Clinical indication: Condition or disease; Other: Leukemia; Follow-up oncological assessment; Prior surgery; Surgery type: Left inguinal, appy; Additional info: Follow up, [id number] TECHNIQUE: Imaging protocol: Computed tomography of the abdomen and pelvis with contrast. Radiation optimization: All CT scans at this facility use at least one of these dose optimization techniques: automated exposure control; mA and/or kV adjustment per patient size (includes targeted exams where dose is matched to clinical indication); or iterative reconstruction. Contrast material: OMNI 350; Contrast volume: 95 ml; Contrast route: INTRAVENOUS (IV); COMPARISON: CT abdomen pelvis w con* [id number] 02/25/2021 3:26 PM RADIATION DOSE METRICS: Total DLP (mGy-cm): 1720.03 FINDINGS: Liver: Unchanged tiny left hepatic lobe 2 mm low-attenuation lesion is seen, which may represent a bile duct hamartoma. No other liver lesions. Normal attenuation. Gallbladder and bile ducts: Gallbladder neck region 6 x 6 mm density is seen, suggestive of a noncalcified gallstone. No gallbladder wall thickening. No biliary ductal dilatation. Pancreas: Normal contour and enhancement. No ductal dilation. Spleen: Normal enhancement. No splenomegaly. Adrenal glands: Normal contour. No mass. Kidneys and ureters: Normal enhancement. No mass. No hydronephrosis. Stomach and bowel: The non-contrast opacified stomach is not well distended with relative gastric fold prominence. Assessment is limited. The noncontrast opacified small bowel loops appear unremarkable. The noncontrast opacified loops of colon show some distal descending and proximal sigmoid colonic diverticula, without CT evidence of diverticulitis. The lack of orally administered contrast material limits assessment. Appendix: Status post prior appendectomy. Intraperitoneal space: No abdominal ascites. No free air. Some benign phleboliths seen in the pelvis. Vasculature: No abdominal aortic aneurysm. Inferior vena cava and portal vein appear unremarkable. Lymph nodes: No enlarged lymph nodes. Urinary bladder: Mild bladder wall prominence is seen. Recommend correlation with clinical findings of cystitis on urinalysis. Reproductive: Unchanged mild to moderately enlarged prostate is seen. Recommend correlation with clinical exam findings and PSA level assessment. Bones/joints: No acute osseous abnormality seen. Unchanged mild dextroconvex scoliosis of the mid lumbar spine is seen. Severe degenerative disc disease and facet disease changes are seen throughout the lumbar spine. Multiple levels of foraminal stenosis are seen, severe at the left L5-S1 level. Mild bilateral hip degenerative changes are seen. Soft tissues: Unchanged small to medium-sized right inguinal hernia, containing peritoneal fat. CT/CT chest abd pel w con* IMPRESSION: Unremarkable Chest CT with contrast. IMPRESSION: No acute abnormality seen on the abdomen and pelvis CT. Chronic changes, as noted above.
[2021-12-18] MEDS: iohexol 350 mg/mL 100 mL Btl IV (17:28)
== END 2021-12-18 13:51 | disposition home or self-care (01) ==
LOC: RAD 13:51
PROVIDERS: PCP Nurse Practitioner Family; Visit Provider Internal Medicine Hematology & Oncology
DX: C91.10 Chronic lymphocytic leukemia of B-cell type not having achieved remission (principal)
CPT/HCPCS: 71260; 74177

== ENCOUNTER 2022-01-06 13:27 | Oncology outpatient (recurring) (ONCR) | payer MEDICARE, MEDICAID, SELFPAY ==
[2022-01-06 14:09] LABS: Basophils # 0.1 10^3/uL (0.0-0.1); Basophils % 0.4 %; Eosinophils # 0.5 10^3/uL (0.0-0.8); Eosinophils % 3.3 %; Hematocrit 43.8 % (42.0-52.0); Hemoglobin 14.5 g/dL (11.7-16.6); Lymphocytes # 7.9 10^3/uL (0.8-4.8); Lymphocytes % 49.5 %; Mean Corpuscular HGB Conc 33.1 g/dL (30.0-36.0); Mean Corpuscular Hemoglobin 29.5 pg (28.0-34.0); Mean Platelet Volume 11.1 fL (7.4-10.4); Neutrophils # 6.36 10^3/uL (1.8-7.7); Neutrophils % 39.9 %; Nucleated Red Blood Cells % 0 %; Platelet Count 266 10^3/cmm (130-400); Red Blood Count 4.92 10^6/uL (4.1-5.3); Red Cell Distribution Width 13.8 % (12.1-15.1)
== END 2022-01-28 23:59 | disposition home or self-care (01) ==
PROVIDERS: PCP Nurse Practitioner Family; Visit Provider Internal Medicine Hematology & Oncology
DX: C91.10 Chronic lymphocytic leukemia of B-cell type not having achieved remission (principal); F17.210 Nicotine dependence, cigarettes, uncomplicated
CPT/HCPCS: 36415; 85025; 99214

== ENCOUNTER → 2022-02-16 08:31 | Outpatient (BNVA) | payer MEDICARE, MEDICAID, SELFPAY | PROVIDERS: PCP Nurse Practitioner Family; Visit Provider Specialist | DX: M19.011 Primary osteoarthritis, right shoulder (principal) | CPT/HCPCS: 20610; 73030; 99213 ==

== ENCOUNTER → 2022-05-21 10:44 | Outpatient (BNVA) | payer MEDICARE, MEDICAID, SELFPAY | PROVIDERS: PCP Nurse Practitioner Family; Visit Provider Specialist | DX: M19.011 Primary osteoarthritis, right shoulder (principal) | CPT/HCPCS: 20610; J1100; J2795; J3301 ==

== ENCOUNTER 2022-06-05 07:59 | Oncology outpatient (recurring) (ONCR) | payer MEDICARE, MEDICAID, SELFPAY ==
[2022-06-05 08:33] LABS: Basophils # 0.1 10^3/uL (0.0-0.1); Basophils % 0.4 %; Eosinophils # 0.6 10^3/uL (0.0-0.8); Eosinophils % 2.8 %; Hematocrit 46.9 % (42.0-52.0); Lymphocytes # 8.7 10^3/uL (0.8-4.8); Lymphocytes % 42.3 %; Mean Corpuscular Hemoglobin 28.1 pg (28.0-34.0); Mean Corpuscular Volume 87.8 fl (80-94); Monocytes # 1.1 10^3/uL (0.2-0.9); Monocytes % 5.1 %; Neutrophils # 9.95 10^3/uL (1.8-7.7); Neutrophils % 48.4 %; Nucleated Red Blood Cells % 0 %; Platelet Count 276 10^3/cmm (130-400); Red Blood Count 5.34 10^6/uL (4.1-5.3); White Blood Count 20.6 10^3/uL (4.0-10.0)
[2022-06-05 08:51] LABS: Alanine Aminotransferase 10 U/L (0-41); Alkaline Phosphatase 76 U/L (40-130); Anion Gap 14.4 (5-19); Aspartate Amino Transferase 11 U/L (0-40); Blood Urea Nitrogen 17 mg/dL (6-20); Calcium 9.1 mg/dL (8.5-10.5); Carbon Dioxide 21 mmol/L (22-29); Chloride 108 mmol/L (98-107); Globulin 2.5 g/dL (1.3-4.6); Glomerular Filtration Rate 76.5 mL/min (90-130); Glucose 95 mg/dL (65-115); Lactate Dehydrogenase 175 U/L (135-225); Osmolality Calculated 289 mOsm/kg (285-295); Potassium 4.4 mmol/L (3.5-5.1); Sodium 139 mmol/L (136-145); Total Bilirubin 0.3 mg/dL (0.15-1.2); Total Protein 6.5 g/dL (6.6-8.7)
[2022-06-05 09:23] LABS: Slide Review Slide Review Perform
== END 2022-06-28 23:59 | disposition home or self-care (01) ==
PROVIDERS: PCP Nurse Practitioner Family; Visit Provider Internal Medicine Hematology & Oncology
DX: D72.820 Lymphocytosis (symptomatic); D72.829 Elevated white blood cell count, unspecified; F17.210 Nicotine dependence, cigarettes, uncomplicated; K92.2 Gastrointestinal hemorrhage, unspecified; Z85.6 Personal history of leukemia
CPT/HCPCS: 80053; 83615; 85025; 99214

== ENCOUNTER 2022-07-22 10:44 | Emergency (ER) | payer MEDICARE, MEDICAID, SELFPAY ==
[2022-07-22 10:50] VITALS: BP 130/86; PULSE 76; RESP 18; TEMP 36.6; O2SAT 97; BMI 31.9
--- NOTE | 2022-07-22 10:59 | W.ED.EXTPRO ---
HPI - Extremity Problem General: Chief complaint: Extremity Injury, Lower Stated complaint: Right leg pain Time Seen by Provider: 07/22/22 10:48 History of Present Illness: Mr. Paniagua is a 62-year-old gentleman with significant past medical history of chronic back pain, CLL, hypertension, hyperlipidemia, tobaccoism presenting to the emergency department for right hip and leg pain. He reports onset of symptoms atraumatic few days ago and since that time is worsened. He describes worse symptoms with radiation down the leg anterior medially with standing and walking. Intensity is moderate to severe. Course has worsened. As a separate concern he also notes some mild shortness of breath and cough over the past month. No other specific changes in health, exacerbating, or alleviating factors identified. Onset (ago): day(s) Pain Consistency: constant Location: right and lower extremity Quality: aching Radiation: distal Relieving factors: nothing Exacerbating factors: weight bearing and walking Associated symptoms: Reports no associated symptoms Review of Systems General: Reports: 10 or more systems reviewed and unremarkable except in HPI and below PFSH ED PFSH: Medical History Chronic back pain Chronic lymphocytic leukemia Elevated LDH GERD (gastroesophageal reflux disease) History of esophageal dilatation History of hypertension History of sciatica Hyperlipidemia Scoliosis Surgical History History of appendectomy History of hernia repair History of lumbar laminectomy Family History Other CAD (coronary artery disease) Cancer Chronic kidney disease (CKD) Diabetes Hypertension Lung disease Denies family history of Clotting disorder Dementia Hyperlipidemia Psychiatric illness Suicide Anesthesia complication Bleeding disorder Stroke Social History Smoking and tobacco status: current every day smoker (1 ppd, smoked x 40+ years) cigarettes Packs smoked per day: 1 Years cigarettes smoked: 40 Alcohol intake: current Alcohol intake frequency: other Substance/Drug Use: never Lives independently: Yes Physical Exam Const: COMMON NORMALS: alert GENERAL APPEARANCE: cooperative and well developed HENMT: COMMON NORMALS: normocephalic and atraumatic HEAD & SCALP: normocephalic and atraumatic Eye: COMMON NORMALS: conjunctivae normal CONJUNCTIVA: Yes conjunctivae normal SCLERA: sclerae normal Neck/C-Spine: COMMON NORMALS: supple GENERAL: Yes trachea midline Resp: COMMON NORMALS: normal respiratory effort EFFORT & INSPECTION: Yes able to speak in complete sentences AUSCULTATION: diminished lung sounds Cardio: COMMON NORMALS: regular rate and regular rhythm RATE: regular rate RHYTHM: regular rhythm GI: COMMON NORMALS: Soft to palpation PALPATION: Yes Soft to palpation and No Tenderness to palpation present (GI) Back/Pelvis: COMMON NORMALS: no thoracic nor lumbar tenderness OTHER: No SI joint tenderness to palpation Extremity: GENERAL: Yes normal exam except as noted and No edema Neuro: COMMON NORMALS: moves all extremities SENSORIUM/ORIENTATION: Yes alert and No Orientation impaired Psych: COMMON NORMALS: mental status grossly normal and Normal thought process present THOUGHT PROCESS: Normal thought process present Course Vital Signs: Vital signs: Vital Signs Temperature 97.8 F 07/22/22 10:50 Pulse Rate 69 07/22/22 13:08 Respiratory Rate 16 07/22/22 13:08 Blood Pressure 130/86 07/22/22 10:50 Pulse Oximetry 95 07/22/22 13:08 Oxygen Delivery Me thod Room Air 07/22/22 10:50 MDM - Extremity (Nontraumatic) Medical Decision Making 62-year-old gentleman with CLL presenting with atraumatic pain. Exam as above. Labs with leukocytosis near baseline, normal hemoglobin and platelet count. Metabolic panel essentially unremarkable. Only minimal elevation in inflammatory markers. Normal urinalysis. X-rays are unremarkable. Patient's pain improved with analgesia and Valium for muscle laxation. Most likely etiology is musculoskeletal with radicular component. Unlikely to be infectious given provided clinical history and exam. The results of ED evaluation were discussed with the patient including prescriptions and/or symptomatic cares (if applicable) including appropriate and responsible use, followup plan, and return precautions. The patient verbalized understanding and felt safe for discharge. Medical Records I reviewed the patient's medical records. Lab Data I reviewed the patient's lab results. 07/22/22 11:35 07/22/22 11:35 Radiology Impressions Chest X-Ray 07/22/22 11:12 IMPRESSION: No acute findings. Hip/Pelvis X-Ray 07/22/22 11:12 IMPRESSION: No acute findings. Laboratory Results WBC 18.8 10^3/uL (4.0-10.0) H 07/22/22 11:35 RBC 5.25 10^6/uL (4.1-5.3) 07/22/22 11:35 Hgb 14.9 g/dL (11.7-16.6) 07/22/22 11:35 Hct 45.0 % (42.0-52.0) 07/22/22 11:35 MCV 85.7 fl (80-94) 07/22/22 11:35 MCH 28.4 pg (28.0-34.0) 07/22/22 11:35 MCHC 33.1 g/dL (30.0-36.0) 07/22/22 11:35 RDW 14.6 % (12.1-15.1) 07/22/22 11:35 Plt Count 253 10^3/cmm (130-400) 07/22/22 11:35 MPV 10.5 fL (7.4-10.4) H 07/22/22 11:35 Neut % (Auto) 51.4 % 07/22/22 11:35 Lymph % (Auto) 38.7 % 07/22/22 11:35 Stevens % (Auto) 5.3 % 07/22/22 11:35 Eos % (Auto) 2.6 % 07/22/22 11:35 Baso % (Auto) 0.4 % 07/22/22 11:35 Neut # (Auto) 9.66 10^3/uL (1.8-7.7) H 07/22/22 11:35 Lymph # (Auto) 7.3 10^3/uL (0.8-4.8) H 07/22/22 11:35 Stevens # (Auto) 1.0 10^3/uL (0.2-0.9) H 07/22/22 11:35 Eos # (Auto) 0.5 10^3/uL (0.0-0.8) 07/22/22 11:35 Baso # (Auto) 0.1 10^3/uL (0.0-0.1) 07/22/22 11:35 Nucleated RBC % (auto) 0 % 07/22/22 11:35 Nucleated RBCs # 0.0 /100WBC 07/22/22 11:35 ESR 15 mm/hr (0-10) H 07/22/22 11:35 Sodium 136 mmol/L (136-145) 07/22/22 11:35 Potassium 4.4 mmol/L (3.5-5.1) 07/22/22 11:35 Chloride 107 mmol/L (98-107) 07/22/22 11:35 Carbon Dioxide 19 mmol/L (22-29) L 07/22/22 11:35 Anion Gap 14.4 (5-19) 07/22/22 11:35 BUN 20 mg/dL (8-23) 07/22/22 11:35 Creatinine 0.9 mg/dL (0.7-1.2) 07/22/22 11:35 GFR Calculation 86.1 mL/min (90-130) L 07/22/22 11:35 Glucose 128 mg/dL (65-115) H 07/22/22 11:35 Calculated Osmolality 286 mOsm/kg (285-295) 07/22/22 11:35 Calcium 9.4 mg/dL (8.5-10.5) 07/22/22 11:35 Total Bilirubin 0.2 mg/dL (0.15-1.2) 07/22/22 11:35 AST 15 U/L (0-40) 07/22/22 11:35 ALT 11 U/L (0-41) 07/22/22 11:35 Alkaline Phosphatase 100 U/L (40-130) 07/22/22 11:35 C-Reactive Protein 10.1 mg/L (0.0-4.9) H 07/22/22 11:35 Total Protein 6.8 g/dL (6.6-8.7) 07/22/22 11:35 Albumin 4.0 g/dL (3.5-5.2) 07/22/22 11:35 Globulin 2.8 g/dL (1.3-4.6) 07/22/22 11:35 Urine Color Yellow (Yellow) 07/22/22 11:10 Urine Appearance Clear (CLEAR) 07/22/22 11:10 Urine pH 5 (5-7) 07/22/22 11:10 Ur Specific [place] 1.015 (1.005-1.030) 07/22/22 11:10 Urine Protein Neg (Negative) 07/22/22 11:10 Urine Glucose (UA) Norm (Normal) 07/22/22 11:10 Urine Ketones Negative (Negative) 07/22/22 11:10 Urine Blood Neg (Negative) 07/22/22 11:10 Urine Nitrate Negative (Negative) 07/22/22 11:10 Urine Bilirubin Neg (Negative) 07/22/22 11:10 Urine Urobilinogen Norm mg/dL (Negative) 07/22/22 11:10 Ur Leukocyte Esterase Negative (Negative) 07/22/22 11:10 Discharge Plan Discharge Patient Disposition: Home Clinical Impression: Acute hip pain, Lumbar radicular pain, COPD (chronic obstructive pulmonary disease) Condition: Stable Prescriptions: New albuterol sulfate 90 mcg/actuation HFA aerosol inhaler 2 inh inhalation Q4H PRN (Reason: shortness of breath or wheezing) Qty: 8.5 0RF Valium 2 mg tablet 2 mg PO TID PRN (Reason: muscle spasm) Qty: 10 0RF No Action omeprazole 20 mg capsule,delayed release(DR/EC) 20 mg PO QAM aspirin [Adult Aspirin Regimen] 81 mg tablet,delayed release (DR/EC) 81 mg PO QAM simvastatin 20 mg tablet 20 mg PO QAM fluticasone propion-salmeterol [Advair Diskus] 500-50 mcg/dose blister with device 1 inh inhalation BID albuterol sulfate [Ventolin HFA] 90 mcg/actuation HFA aerosol inhaler 2 puff inhalation Q6H PRN (Reason: Shortness Of Breath) gabapentin 600 mg tablet 600 mg PO TID bupivacaine (PF) 0.25 % (2.5 mg/mL) solution 1 ml intra-articular ONCE Qty: 1 0RF tramadol 50 mg tablet 50 mg PO TID PRN metoprolol succinate 200 mg tablet extended release 24 hr 200 mg PO QAM Qty: 90 3RF fluticasone propionate [Flonase Allergy Relief] 50 mcg/actuation spray,suspension 1 spray intranasal BID Rx Instructions: administer into each nostril lorazepam 1 mg tablet See Rx Instructions PO ONCE PRN (Reason: anxiety) Qty: 1 0RF Rx Instructions: take 0.5 tablet 1 hour prior to scan, may repeat after 30 minutes if needed. lisinopril 20 mg tablet 20 mg PO QAM triamterene-hydrochlorothiazid 37.5-25 mg capsule 1 cap PO QAM tizanidine 4 mg tablet 4 mg PO QID Discharge Orders: Discharge ED (Routine); Ordered 07/22/22 Ordered By: Sancho Woodruff Referrals: Tai Moser NP [Primary Care Provider] - Discharge Diet: Usual diet Discharge Activity: Increase activity as tolerated Patient Instructions: COPD (Chronic Obstructive Pulmonary Disease) (ED), Lumbar Radiculopathy (ED), Hip Pain (ED), Opioid Safety Activity Restrictions/Additional Instructions: Thank you for visiting the emergency department. You were seen and evaluated for hip pain. The exact cause your symptoms is unclear though likely related to musculoskeletal pain and nerve root irritation. For your cough this is likely due to exacerbation of underlying lung disease secondary to smoking. I will prescribe steroids and antibiotics. Please also use your albuterol metered-dose inhaler 2 puffs every 4 hours for 24 hours followed by 2 puffs every 6 hours for 24 hours followed by 2 puffs every 8 hours for 24 hours and then return to the normal schedule. You may use [id number] medications such as acetaminophen and ibuprofen for pain however please do not exceed the daily recommended dosage as listed on the packaging and please keep in mind that many namebrand medications contain the same active ingredients. Please avoid these medications if previously instructed to do so by another physician due to other underlying medical condition. Use of Valium cautiously as discussed. Return to the emergency department for uncontrolled pain, leg swelling, fevers, or anything else that you are concerned about and feel needs emergency department evaluation. 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
--- NOTE | 2022-07-22 11:12 | XRR_ITS ---
PROCEDURE INFORMATION: Exam: XR Chest Exam date and time: 07/22/2022 11:19 AM Age: 62 years old Clinical indication: Cough TECHNIQUE: Imaging protocol: Radiologic exam of the chest. Views: 1 view. COMPARISON: CT chest abdpel w/*[id number] 12/18/2021 2:55 PM FINDINGS: Lungs: Unremarkable. No consolidation. Pleural spaces: Unremarkable. No pleural effusion. No pneumothorax. Heart/Mediastinum: Unremarkable. No cardiomegaly. Bones/joints: Unremarkable. XR/XR chest 1V portable [id number] IMPRESSION: No acute findings.
--- NOTE | 2022-07-22 11:12 | XRR_ITS ---
PROCEDURE INFORMATION: Exam: XR Right Hip Exam date and time: 07/22/2022 11:19 AM Age: 62 years old Clinical indication: Hip pain; Right hip; Additional info: Atrumatic pain, radiation to leg TECHNIQUE: Imaging protocol: Radiologic exam of the right hip. Views: 1 view hip with pelvis when performed. COMPARISON: CT chest abdpel w/*[id number] 12/18/2021 2:55 PM FINDINGS: Bones/joints: Unremarkable. No acute fracture. Soft tissues: Unremarkable. XR/XR hip RT 2-3V wo/w pel* [id number] IMPRESSION: No acute findings.
[2022-07-22 11:55] LABS: Basophils # 0.1 10^3/uL (0.0-0.1); Basophils % 0.4 %; Eosinophils # 0.5 10^3/uL (0.0-0.8); Eosinophils % 2.6 %; Hemoglobin 14.9 g/dL (11.7-16.6); Lymphocytes # 7.3 10^3/uL (0.8-4.8); Lymphocytes % 38.7 %; Mean Corpuscular HGB Conc 33.1 g/dL (30.0-36.0); Mean Corpuscular Hemoglobin 28.4 pg (28.0-34.0); Mean Corpuscular Volume 85.7 fl (80-94); Mean Platelet Volume 10.5 fL (7.4-10.4); Monocytes % 5.3 %; Neutrophils # 9.66 10^3/uL (1.8-7.7); Neutrophils % 51.4 %; Nucleated Red Blood Cells % 0 %; Platelet Count 253 10^3/cmm (130-400); Red Blood Count 5.25 10^6/uL (4.1-5.3); Red Cell Distribution Width 14.6 % (12.1-15.1); White Blood Count 18.8 10^3/uL (4.0-10.0)
[2022-07-22 12:12] LABS: Alanine Aminotransferase 11 U/L (0-41); Alkaline Phosphatase 100 U/L (40-130); Anion Gap 14.4 (5-19); Aspartate Amino Transferase 15 U/L (0-40); Blood Urea Nitrogen 20 mg/dL (8-23); C Reactive Protein 10.1 mg/L (0.0-4.9); Calcium 9.4 mg/dL (8.5-10.5); Carbon Dioxide 19 mmol/L (22-29); Chloride 107 mmol/L (98-107); Globulin 2.8 g/dL (1.3-4.6); Glomerular Filtration Rate 86.1 mL/min (90-130); Glucose 128 mg/dL (65-115); Osmolality Calculated 286 mOsm/kg (285-295); Potassium 4.4 mmol/L (3.5-5.1); Sodium 136 mmol/L (136-145); Total Bilirubin 0.2 mg/dL (0.15-1.2); Total Protein 6.8 g/dL (6.6-8.7)
[2022-07-22 12:16] LABS: Add Urine Microscopic? NO; Charge for UA Resulting for Rev
[2022-07-22] MEDS: acetaminophen 500 mg Tablet 1000 MG PO (12:18)
[2022-07-22] MEDS: diazePAM 2 mg Tablet PO (12:19)
[2022-07-22 12:22] LABS: Erythrocyte Sedimentation Rate 15 mm/hr (0-10)
[2022-07-22] MEDS: ketorolac 30 mg/mL INJ 15 MG IM (12:23)
[2022-07-22 12:37] LABS: Urine Appearance Clear (CLEAR); Urine Color Yellow (Yellow)
[2022-07-22 12:38] LABS: Bilirubin Urine Neg (Negative); Blood Urine Neg (Negative); Glucose Urine UA Norm (Normal); Ketones Urine Negative (Negative); Leukocyte Esterase Urine Negative (Negative); Nitrate Urine Negative (Negative); Protein Urine Neg (Negative); Specific Gravity, Urine 1.015 (1.005-1.030); Urobilinogen Urine Norm (Negative); pH Urine 5 (5-7)
[2022-07-22 12:39] LABS: Slide Review Slide Review Perform
[2022-07-22 13:08] VITALS: PULSE 69; RESP 16; O2SAT 95
== END 2022-07-22 13:09 | disposition home or self-care (01) ==
PROVIDERS: Emergency Provider Emergency Medicine; PCP Nurse Practitioner Family
DX: M54.16 Radiculopathy, lumbar region (principal); J44.9 Chronic obstructive pulmonary disease, unspecified; M25.551 Pain in right hip; Z79.82 Long term (current) use of aspirin; F17.210 Nicotine dependence, cigarettes, uncomplicated; I10 Essential (primary) hypertension; Z85.6 Personal history of leukemia; E78.5 Hyperlipidemia, unspecified
CPT/HCPCS: 36415; 71045; 73502; 80053; 81003; 85025; 85651; 86140; 96372; 99284; J1885

== ENCOUNTER → 2022-08-27 13:49 | Outpatient (BNVA) | payer MEDICARE, MEDICAID, SELFPAY | PROVIDERS: PCP Nurse Practitioner Family; Visit Provider Specialist | DX: M19.011 Primary osteoarthritis, right shoulder (principal); Z71.89 Other specified counseling | CPT/HCPCS: 20610; J1100; J2795; J3301 ==

== ENCOUNTER 2023-05-11 19:16 | Emergency (ER) | payer MEDICARE, MEDICAID, SELFPAY ==
[2023-05-11 19:18] VITALS: BP 205/127; PULSE 85; RESP 16; TEMP 36.6; O2SAT 98
--- NOTE | 2023-05-11 19:40 | XRR_ITS ---
PROCEDURE INFORMATION: Exam: XR Cervical Spine Exam date and time: 05/11/2023 7:48 PM Age: 62 years old Clinical indication: Neck pain TECHNIQUE: Imaging protocol: Radiologic exam of the cervical spine. Views: 2 or 3 views. COMPARISON: CR XR cervical spine 4-5V [id number] 12/26/2020 8:50 AM FINDINGS: Limitations: The lower cervical spine not well seen on lateral views. Bones/joints: 3-4 mm of anterolisthesis C3 on C4 stable to slightly worsened compared to 2020. C4 through C7 not well visualized on lateral view. Degenerative changes of the cervical spine, not well assessed. Soft tissues: Unremarkable. XR/XR cervical spine 3V* [id number] IMPRESSION: 1. Significant limited lateral views of the cervical spine. C4 through C7 not well visualized. 2. 3-4 mm of anterolisthesis C3 over C4 which appear worsened when compared to 2020 and may represent progression of degenerative change. Acute pathology difficult to exclude on plain film. Consider CT if indicated.
[2023-05-11] MEDS: ketorolac 60 mg/2 mL INJ IM (20:03)
[2023-05-11] MEDS: orphenadrine 30 mg/mL Inj 2 mL 60 MG IM (20:06)
[2023-05-11] MEDS: dexamethasone 10 mg/mL INJ 8 MG IM (20:10)
--- NOTE | 2023-05-11 20:57 | CTR_ITS ---
PROCEDURE INFORMATION: Exam: CT Cervical Spine Without Contrast Exam date and time: 05/11/2023 9:04 PM Age: 62 years old Clinical indication: Neck pain; Additional info: Pain, XR indeterminate TECHNIQUE: Imaging protocol: Computed tomography of the cervical spine without contrast. Radiation optimization: All CT scans at this facility use at least one of these dose optimization techniques: automated exposure control; mA and/or kV adjustment per patient size (includes targeted exams where dose is matched to clinical indication); or iterative reconstruction. COMPARISON: MR cervical spin wo con* [id number] 10/04/2019 8:04 AM RADIATION DOSE METRICS: Total DLP (mGy-cm): 249.87 FINDINGS: Bones/joints: 2-3 mm of anterolisthesis C3 on C4. Trace anterolisthesis of C4 on C5. 1-2 mm of retrolisthesis of C5 on C6 and C6 on C7. No evidence of acute fracture. [id number] multilevel degenerative changes of the cervical spine with apparent interval progression compared to prior imaging including MR from 2019. Lungs: Lung apices are normal. Soft tissues: Unremarkable. CT/CT cervical spin wo con* [id number] IMPRESSION: 1. No evidence of acute fracture. 2. Multilevel listhesis likely related to [id number] degenerative changes.
--- NOTE | 2023-05-11 20:57 | ED_ITS ---
Documented by User: NICOLA Bradshaw 05/11/23 22:23 HPI - Back Pain/Injury General: Chief Complaint: Back Pain/Injury Stated Complaint: Left shoulder pain Time Seen by Provider: 05/11/23 19:26 Source: patient Mode of arrival: ambulatory Limitations: no limitations History of Present Illness: Patient is a 62-year-old male presents to the emergency department complaining of neck pain onset 3 days. Patient denies any inciting events or past surgery/trauma to the neck, but is stating he has left paracervical muscular tenderness that radiates up to the head and down the left trapezius. His [id number] medications and other remedies have not seemed to help with the pain. He denies any changes in vision, dizziness or lightheadedness, numbness/tingling/weakness in any extremities, or any other symptoms. The pain feels sharp and aching in quality. He denies any spinous process tenderness. MD elicited complaint: other (Neck pain) Onset (ago): day(s) (3) Timing: constant Quality: sharp and aching Associated symptoms: Deny abdominal pain, chills, dysuria, fatigue, fever(s), nausea or vomiting Review of Systems General: Reports: 10 or more systems reviewed and unremarkable except in HPI and below Const: Denies: fever(s), chills or fatigue Eyes: Denies: change in vision ENMT: Denies: throat pain, ear or mastoid pain or nasal discharge Card: Denies: chest pain, palpitations, swelling of feet/ankles or light headedness Resp: Denies: dyspnea, productive cough or wheezing GI: Denies: abdominal pain, nausea, vomiting, diarrhea or constipation : Denies: flank pain, difficulty urinating, dysuria or urinary frequency Musc: Reports: neck pain; Denies: back pain, extremity pain, extremity swelling, joint pain, joint swelling or muscle weakness Skin/Breast: Denies: rash Neuro: Reports: headache(s); Denies: numbness in extremities, weakness in extremities, sensory changes or dizziness PFS ED PFSH: Medical History Chronic lymphocytic leukemia Elevated LDH Hyperlipidemia Chronic back pain GERD (gastroesophageal reflux disease) History of sciatica History of hypertension Scoliosis History of esophageal dilatation Surgical History History of lumbar laminectomy History of hernia repair History of appendectomy Family History Other CAD (coronary artery disease) Cancer Chronic kidney disease (CKD) Diabetes Hypertension Lung disease Denies family history of Clotting disorder Dementia Hyperlipidemia Psychiatric illness Suicide Anesthesia complication Bleeding disorder Stroke Social History Smoking and tobacco/nicotine status: current every day tobacco/nicotine user (1 ppd, smoked x 40+ years) cigarettes Packs smoked per day: 1 Years cigarettes smoked: 40 Alcohol intake: current Alcohol intake frequency: other Substance/Drug Use: never Lives independently: Yes Physical Exam Const: COMMON NORMALS: no acute distress, patient oriented x3 and no limitations GENERAL APPEARANCE: cooperative, comfortable and well developed ORIENTATION/CONSCIOUSNESS: Yes awake, Yes oriented to person, Yes oriented to place and Yes oriented to time HENMT: COMMON NORMALS: normocephalic, atraumatic and hearing grossly normal bilaterally HEAD & SCALP: normocephalic and atraumatic FACE & SINUS: normal facial exam Eye: COMMON NORMALS: Equal, round and reactive pupils present, EOMs intact bilaterally and conjunctivae normal CONJUNCTIVA: Yes conjunctivae normal PUPIL: Yes Equal, round and reactive pupils present Neck/C-Spine: COMMON NORMALS: full ROM, supple and no JVD CERVICAL SPINE: Yes cervical ROM normal, No loss of normal cervical lordosis, No Cervical spine tenderness, No step off deformity, Yes Paracervical muscle tenderness left and Yes Trapezius muscle tenderness left Resp: COMMON NORMALS: normal respiratory effort, No retractions, No use of accessory muscles and clear to auscultation bilaterally AUSCULTATION: clear to auscultation bilaterally Cardio: COMMON NORMALS: no JVD, regular rate, regular rhythm, No clicks present (Cardio), No murmurs present (Cardio) and No rub (Cardio) RATE: regular rate RHYTHM: regular rhythm GI: COMMON NORMALS: Normal to inspection, nondistended, normoactive bowel sounds present, Soft to palpation and non-tender AUSCULTATION: Yes normoactive bowel sounds PALPATION: Yes Soft to palpation RECTAL EXAM: Yes deferred Back/Pelvis: COMMON NORMALS: thoracic and lumbar spine normal to inspection, no thoracic nor lumbar tenderness and thoraco-lumbar ROM normal Extremity: COMMON NORMALS: normal to inspection, full ROM and capillary refill normal Neuro: COMMON NORMALS: patient oriented x3, CN's II-XII intact bilaterally, moves all extremities, no focal motor deficits and no sensory deficits noted SENSORIUM/ORIENTATION: Yes oriented to person, Yes oriented to place and Yes oriented to time Psych: COMMON NORMALS: mental status grossly normal and Normal thought process present THOUGHT PROCESS: Normal thought process present Skin: COMMON NORMALS: no rashes or lesions noted GENERAL SKIN EXAM: no rashes or lesions noted Course Vital Signs: Vital signs: Vital Signs Temperature 97.9 F 05/11/23 19:18 Pulse Rate 78 05/11/23 22:02 Respiratory Rate 18 05/11/23 22:02 Blood Pressure 168/113 05/11/23 22:02 Pulse Oximetry 95 05/11/23 22:02 Oxygen Delivery Me thod Room Air 05/11/23 19:18 MDM - Back Pain/Injury Medical Decision Making Patient seen and evaluated for neck pain for the past 3 days. No trauma or prior surgeries. Vitals normal on arrival aside from an elevated blood pressure that came down with pain relief following administration of IM Toradol, Decadron, and Norflex. Cervical spine x-ray showed limited results due to lack of visualization, so cervical spine CT was ordered that showed no evidence of acute fracture. I reported these findings to the patient, and he states he feels better after the medications. I told the patient to follow-up with orthopedics for any further imaging, and I will discharge him with prescriptions for prednisone, Toradol, and cyclobenzaprine. I told him to return if his condition worsens or he develops any neurological deficits. Patient agrees and will be discharged home. Labs Radiology Impressions Cervical Spine X-Ray 05/11/23 19:40 IMPRESSION: 1. Significant limited lateral views of the cervical spine. C4 through C7 not well visualized. 2. 3-4 mm of anterolisthesis C3 over C4 which appear worsened when compared to 2020 and may represent progression of degenerative change. Acute pathology difficult to exclude on plain film. Consider CT if indicated. Cervical Spine CT 05/11/23 20:57 IMPRESSION: 1. No evidence of acute fracture. 2. Multilevel listhesis likely related to [id number] degenerative changes. All radiology interpretation(s) finalized by discharge Discharge Plan Discharge Patient Disposition: Home Clinical Impression: Acute cervical myofascial strain Qualifiers: Encounter type: initial encounter Qualified Code(s): S16.1XXA - Strain of muscle, fascia and tendon at neck level, initial encounter Condition: Stable Prescriptions: New cyclobenzaprine 10 mg tablet 10 mg PO TID Qty: 30 0RF prednisone 20 mg tablet 60 mg PO ONCE 5 Days Qty: 15 0RF ketorolac 10 mg tablet 10 mg PO Q8H PRN (Reason: pain) Qty: 30 0RF No Action omeprazole 20 mg capsule,delayed release(DR/EC) 20 mg PO QAM aspirin [Adult Aspirin Regimen] 81 mg tablet,delayed release (DR/EC) 81 mg PO QAM simvastatin 20 mg tablet 20 mg PO QAM fluticasone propion-salmeterol [Advair Diskus] 500-50 mcg/dose blister with device 1 inh inhalation BID albuterol sulfate [Ventolin HFA] 90 mcg/actuation HFA aerosol inhaler 2 puff inhalation Q6H PRN (Reason: Shortness Of Breath) gabapentin 600 mg tablet 600 mg PO TID permethrin 5 % cream 1 applic topical Q14D Qty: 60 0RF Rx Instructions: apply second treatment 14 days after first treatment if live lice remain bupivacaine (PF) 0.25 % (2.5 mg/mL) solution 1 ml intra-articular ONCE Qty: 1 0RF metoprolol succinate 200 mg tablet extended release 24 hr 200 mg PO QAM Qty: 90 3RF fluticasone propionate [Flonase Allergy Relief] 50 mcg/actuation spray,suspension 1 spray intranasal BID Rx Instructions: administer into each nostril lorazepam 1 mg tablet See Rx Instructions PO ONCE PRN (Reason: anxiety) Qty: 1 0RF Rx Instructions: take 0.5 tablet 1 hour prior to scan, may repeat after 30 minutes if needed. triamterene-hydrochlorothiazid 37.5-25 mg capsule 1 cap PO QAM albuterol sulfate 90 mcg/actuation HFA aerosol inhaler 2 inh inhalation Q4H PRN (Reason: shortness of breath or wheezing) Qty: 8.5 0RF Discharge Orders: Discharge ED (Routine); Ordered 05/11/23 Ordered By: Zion Bryant Referrals: Jared Villarreal MD [Primary Care Provider] - Discharge Diet: Usual diet Discharge Activity: Increase activity as tolerated Patient Instructions: Cervical Strain (ED) Activity Restrictions/Additional Instructions: Medications as prescribed. Ice for added relief. Please follow-up with orthopedics as discussed. Return with any new or concerning symptoms. 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 [employer] Documented by User: Maxim Santos DO 05/12/23 06:32 HPI - Back Pain/Injury General: Chief Complaint: Back Pain/Injury Stated Complaint: Left shoulder pain Time Seen by Provider: 05/11/23 19:26 PFSH ED PFSH: Medical History Chronic lymphocytic leukemia Elevated LDH Hyperlipidemia Chronic back pain GERD (gastroesophageal reflux disease) History of sciatica History of hypertension Scoliosis History of esophageal dilatation Surgical History History of lumbar laminectomy History of hernia repair History of appendectomy Family History Other CAD (coronary artery disease) Cancer Chronic kidney disease (CKD) Diabetes Hypertension Lung disease Denies family history of Clotting disorder Dementia Hyperlipidemia Psychiatric illness Suicide Anesthesia complication Bleeding disorder Stroke Social History Smoking and tobacco/nicotine status: current every day tobacco/nicotine user (1 ppd, smoked x 40+ years) cigarettes Packs smoked per day: 1 Years cigarettes smoked: 40 Alcohol intake: current Alcohol intake frequency: other Substance/Drug Use: never Lives independently: Yes Course Vital Signs: Vital signs: Vital Signs Temperature 97.9 F 05/11/23 19:18 Pulse Rate 78 05/11/23 22:02 Respiratory Rate 18 05/11/23 22:02 Blood Pressure 168/113 05/11/23 22:02 Pulse Oximetry 95 05/11/23 22:02 Oxygen Delivery Me thod Room Air 05/11/23 19:18 MDM - Back Pain/Injury Medical Decision Making Patient seen and evaluated for neck pain for the past 3 days. No trauma or prior surgeries. Vitals normal on arrival aside from an elevated blood pressure that came down with pain relief following administration of IM Toradol, Decadron, and Norflex. Cervical spine x-ray showed limited results due to lack of visualization, so cervical spine CT was ordered that showed no evidence of acute fracture. I reported these findings to the patient, and he states he feels better after the medications. I told the patient to follow-up with orthopedics for any further imaging, and I will discharge him with prescriptions for prednisone, Toradol, and cyclobenzaprine. I told him to return if his condition worsens or he develops any neurological deficits. Patient agrees and will be discharged home. Chart reviewed Labs Radiology Impressions Cervical Spine X-Ray 05/11/23 19:40 IMPRESSION: 1. Significant limited lateral views of the cervical spine. C4 through C7 not well visualized. 2. 3-4 mm of anterolisthesis C3 over C4 which appear worsened when compared to 2020 and may represent progression of degenerative change. Acute pathology difficult to exclude on plain film. Consider CT if indicated. Cervical Spine CT 05/11/23 20:57 IMPRESSION: 1. No evidence of acute fracture. 2. Multilevel listhesis likely related to [id number] degenerative changes. Discharge Plan Discharge Patient Disposition: Home Clinical Impression: Acute cervical myofascial strain Qualifiers: Encounter type: initial encounter Qualified Code(s): S16.1XXA - Strain of muscle, fascia and tendon at neck level, initial encounter Condition: Stable Prescriptions: New cyclobenzaprine 10 mg tablet 10 mg PO TID Qty: 30 0RF prednisone 20 mg tablet 60 mg PO ONCE 5 Days Qty: 15 0RF ketorolac 10 mg tablet 10 mg PO Q8H PRN (Reason: pain) Qty: 30 0RF No Action omeprazole 20 mg capsule,delayed release(DR/EC) 20 mg PO QAM aspirin [Adult Aspirin Regimen] 81 mg tablet,delayed release (DR/EC) 81 mg PO QAM simvastatin 20 mg tablet 20 mg PO QAM fluticasone propion-salmeterol [Advair Diskus] 500-50 mcg/dose blister with device 1 inh inhalation BID albuterol sulfate [Ventolin HFA] 90 mcg/actuation HFA aerosol inhaler 2 puff inhalation Q6H PRN (Reason: Shortness Of Breath) gabapentin 600 mg tablet 600 mg PO TID permethrin 5 % cream 1 applic topical Q14D Qty: 60 0RF Rx Instructions: apply second treatment 14 days after first treatment if live lice remain bupivacaine (PF) 0.25 % (2.5 mg/mL) solution 1 ml intra-articular ONCE Qty: 1 0RF metoprolol succinate 200 mg tablet extended release 24 hr 200 mg PO QAM Qty: 90 3RF fluticasone propionate [Flonase Allergy Relief] 50 mcg/actuation spray,suspension 1 spray intranasal BID Rx Instructions: administer into each nostril lorazepam 1 mg tablet See Rx Instructions PO ONCE PRN (Reason: anxiety) Qty: 1 0RF Rx Instructions: take 0.5 tablet 1 hour prior to scan, may repeat after 30 minutes if needed. triamterene-hydrochlorothiazid 37.5-25 mg capsule 1 cap PO QAM albuterol sulfate 90 mcg/actuation HFA aerosol inhaler 2 inh inhalation Q4H PRN (Reason: shortness of breath or wheezing) Qty: 8.5 0RF Discharge Orders: Discharge ED (Routine); Ordered 05/11/23 Ordered By: Zion Bryant Referrals: Jared Villarreal MD [Primary Care Provider] - Discharge Diet: Usual diet Discharge Activity: Increase activity as tolerated Patient Instructions: Cervical Strain (ED) Activity Restrictions/Additional Instructions: Medications as prescribed. Ice for added relief. Please follow-up with orthopedics as discussed. Return with any new or concerning symptoms. 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 Axel Stack
[2023-05-11 22:02] VITALS: BP 168/113; PULSE 78; RESP 18; O2SAT 95
--- NOTE | 2023-05-12 07:28 | DCPLANNER ---
Sent message sent to Ortho for a follow up on a cervical strain.
== END 2023-05-11 22:02 | disposition home or self-care (01) ==
PROVIDERS: Emergency Provider Physician Assistant; PCP Family Medicine
DX: S16.1XXA Strain of muscle, fascia and tendon at neck level, initial encounter (principal); Z79.82 Long term (current) use of aspirin; F17.210 Nicotine dependence, cigarettes, uncomplicated; Z85.6 Personal history of leukemia; E78.5 Hyperlipidemia, unspecified; I10 Essential (primary) hypertension; X58.XXXA Exposure to other specified factors, initial encounter
CPT/HCPCS: 72040; 72125; 96372; 99284; J1100; J1885; J2360

== ENCOUNTER → 2023-05-20 15:14 | Outpatient (BNVA) | payer MEDICARE, MEDICAID, SELFPAY | PROVIDERS: PCP Family Medicine; Referring Provider Physician Assistant; Visit Provider Orthopaedic Surgery | DX: M54.2 Cervicalgia (principal); G89.29 Other chronic pain | CPT/HCPCS: 99214 ==

== ENCOUNTER 2023-06-07 15:08 | Oncology outpatient (recurring) (ONCR) | payer MEDICARE, MEDICAID, SELFPAY ==
[2023-06-07 16:13] LABS: Basophils # 0.1 10^3/uL (0.0-0.1); Basophils % 0.5 %; Eosinophils # 0.6 10^3/uL (0.0-0.8); Eosinophils % 3.3 %; Lymphocytes # 8.9 10^3/uL (0.8-4.8); Lymphocytes % 46.2 %; Mean Corpuscular HGB Conc 33.7 g/dL (30-55); Mean Corpuscular Hemoglobin 28.4 pg (27-33); Mean Corpuscular Volume 84.4 fl (82-101); Monocytes # 1.1 10^3/uL (0.2-0.9); Neutrophils # 8.11 10^3/uL (1.8-7.7); Neutrophils % 42.3 %; Nucleated Red Blood Cells % 0 %; Platelet Count 271 10^3/cmm (157-399); Red Blood Count 5.45 10^6/uL (3.85-5.65); Red Cell Distribution Width 13.7 % (12.1-15.1); White Blood Count 19.15 10^3/uL (3.29-11.43)
[2023-06-07 16:34] LABS: Albumin Level 3.9 g/dL (3.5-5.2); Alkaline Phosphatase 87 U/L (40-130); Anion Gap 15.9 (5-19); Aspartate Amino Transferase 15 U/L (0-40); Blood Urea Nitrogen 20 mg/dL (8-23); Calcium 9.1 mg/dL (8.5-10.5); Carbon Dioxide 22 mmol/L (22-29); Chloride 104 mmol/L (98-107); Creatinine Clr Calc Pharmacy 82.0462; Globulin 3.2 g/dL (1.3-4.6); Glomerular Filtration Rate 76.2 mL/min (90-130); Glucose 111 mg/dL (65-115); Osmolality Calculated 289 mOsm/kg (285-295); Potassium 3.9 mmol/L (3.5-5.1); Sodium 138 mmol/L (136-145); Total Bilirubin 0.2 mg/dL (0.15-1.2); Total Protein 7.1 g/dL (6.6-8.7)
[2023-06-07 16:40] LABS: Slide Review Slide Review Perform
[2023-06-07 16:44] LABS: Alanine Aminotransferase 13 U/L (0-41)
[2023-06-07 17:09] LABS: Lactate Dehydrogenase 221 U/L (135-225)
[2023-06-18 07:07] LABS: CLL Prognostic Panel (BBPL) See Report
== END 2023-06-29 23:59 | disposition home or self-care (01) ==
PROVIDERS: Internal Medicine; PCP Family Medicine; Visit Provider Internal Medicine Hematology & Oncology
DX: D72.820 Lymphocytosis (symptomatic) (principal); D72.829 Elevated white blood cell count, unspecified; F17.210 Nicotine dependence, cigarettes, uncomplicated; K92.2 Gastrointestinal hemorrhage, unspecified; Z85.6 Personal history of leukemia
CPT/HCPCS: 36415; 80053; 81263; 82232; 83615; 85025; 88185; 88264; 88271; 88367; 88374; 99214

== ENCOUNTER 2023-07-08 11:20 | Outpatient (CLI) | payer MEDICARE, MEDICAID, SELFPAY ==
--- NOTE | 2023-07-08 11:26 | US_ITS ---
WS: [id number] RENAL ULTRASOUND HISTORY: HEMATURIA COMPARISON: 04/07/2021 TECHNIQUE: 2-D and color Doppler imaging of the kidney submitted. Right kidney: 11.1 cm x 4.5 cm x 5.3 cm. Cortex: 1.1 cm Normal echogenicity with no hydronephrosis or mass. Left kidney: 10.7 cm x 5.0 cm x 4.7 cm. Cortex: 1.2 cm Normal echogenicity with no hydronephrosis or mass. Aorta: Mild atherosclerosis aorta. Urinary Bladder: Minimally distended. Mild nodularity along the base of the urinary bladder may be du e to under distention or prostate enlargement. Prostate gland is enlarged encroaching into the base of the urinary bladder. US/US renal BI* [id number] IMPRESSION: 1. No renal mass or obstruction. 2. Enlarged prostate gland. 3. Minimally distended urinary bladder. There is mild bladder wall thickening at the base which may be related to prostate enlargement and partial distention of the bladder. Cannot exclude uroepithelial lesion on this appearance. Cystos copy may be necessary for complete evaluation.
== END 2023-07-08 11:21 | disposition home or self-care (01) ==
LOC: RAD 11:20
PROVIDERS: PCP Family Medicine; Visit Provider Family Medicine
DX: N40.0 Benign prostatic hyperplasia without lower urinary tract symptoms (principal); N32.89 Other specified disorders of bladder; R31.9 Hematuria, unspecified
CPT/HCPCS: 76770

== ENCOUNTER → 2023-07-20 13:48 | Outpatient (BNVA) | payer MEDICARE, MEDICAID, SELFPAY | PROVIDERS: PCP Family Medicine; Visit Provider Orthopaedic Surgery | DX: M54.12 Radiculopathy, cervical region (principal); M47.12 Other spondylosis with myelopathy, cervical region; M54.2 Cervicalgia; G89.29 Other chronic pain | CPT/HCPCS: 99213 ==

== ENCOUNTER 2023-08-07 12:59 | Emergency (ER) | payer MEDICARE, MEDICAID, SELFPAY ==
[2023-08-07 13:17] VITALS: BP 122/79; PULSE 88; RESP 16; TEMP 36.6; O2SAT 97
--- NOTE | 2023-08-07 13:44 | XRR_ITS ---
PROCEDURE INFORMATION: Exam: XR Lumbosacral Spine Exam date and time: 08/07/2023 2:23 PM Age: 63 years old Clinical indication: Low back pain and lumbago with sciatica; Patient HX: Lower back pain with left sciatica post lifting injury; Additional info: Back pain with radiation down lle TECHNIQUE: Imaging protocol: Radiologic exam of the lumbosacral spine. Views: 2 or 3 views. COMPARISON: CR XR lumbar spine min 4V [id number] 04/02/2020 4:02 PM FINDINGS: Bones/joints: There is a stable moderate to marked dextro rotational curvature of the lumbar spine. There is straightening of the lumbar lordosis but otherwise normal sagittal alignment. Stable multilevel degenerative disc disease with prominent osteophytes/syndesmophytes at L2-L3. No acute findings. Soft tissues: Unremarkable. XR/XR lumbar spine 2-3V* [id number] IMPRESSION: Stable nonacute findings.
--- NOTE | 2023-08-07 13:45 | W.ED.BACK ---
HPI - Back Pain/Injury General: Chief Complaint: Back Pain/Injury Stated Complaint: back patient, left hip pain Time Seen by Provider: 08/07/23 13:27 Source: patient Mode of arrival: ambulatory Limitations: no limitations History of Present Illness: Patient is a 63-year-old male presenting to the emergency department complaining of acute on chronic low back pain onset 2 days. 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 Pain is to his lower lumbar spine and left paralumbar muscles with radiation down the lateral left leg. He does have a history of sciatica but does state this feels a little different. He denies any bowel or bladder incontinence, saddle anesthesia, or any other distal neurovascular deficits. No trauma reported. No previous back surgeries. Pain is a 10/10 sharpness. He has not taken anything for his pain to this point. Pain is worsened with any range of motion and with ambulation. Alleviated by resting. MD elicited complaint: back pain Pertinent past history: prior back pain Onset (ago): day(s) Timing: constant Severity: severe Pain scale (0-10): 10 Similar Symptoms Previously: Yes Quality: sharp Location: lumbar spine and left lower back Radiation: left upper leg Exacerbating factors: movement and walking Relieving factors: immobilization Context: while lifting Associated symptoms: Reports no associated symptoms; Deny abdominal pain, chills, dysuria, fecal incontinence, fever(s), hematuria, nausea or vomiting Work related injury: No Review of Systems General: Reports: 10 or more systems reviewed and unremarkable except in HPI and below Const: Denies: fever(s) or chills Card: Denies: chest pain, palpitations or lightheadedness Resp: Denies: dyspnea, productive cough or wheezing GI: Denies: abdominal pain, nausea, vomiting, diarrhea or fecal incontinence : Denies: flank pain, dysuria, urinary incontinence or hematuria Musc: Reports: back pain, extremity pain and limited range of motion; Denies: neck pain or joint pain Neuro: Denies: headache(s), numbness in extremities or weakness in extremities PFS ED PFSH: Medical History Chronic lymphocytic leukemia Elevated LDH Hyperlipidemia Chronic back pain GERD (gastroesophageal reflux disease) History of sciatica History of hypertension Scoliosis History of esophageal dilatation Surgical History History of lumbar laminectomy History of hernia repair History of appendectomy Family History Other CAD (coronary artery disease) Cancer Chronic kidney disease (CKD) Diabetes Hypertension Lung disease Denies family history of Clotting disorder Dementia Hyperlipidemia Psychiatric illness Suicide Anesthesia complication Bleeding disorder Stroke Social History Smoking and tobacco/nicotine status: current every day tobacco/nicotine user (1 ppd, smoked x 40+ years) cigarettes Packs smoked per day: 1 Years cigarettes smoked: 40 Alcohol intake: current Alcohol intake frequency: other Substance/Drug Use: never Lives independently: Yes Physical Exam Const: COMMON NORMALS: average body habitus, patient oriented x3, no limitations and alert GENERAL APPEARANCE: cooperative and in distress (Avoiding range of motion due to pain) HENMT: COMMON NORMALS: normocephalic and atraumatic HEAD & SCALP: normocephalic and atraumatic Eye: COMMON NORMALS: EOMs intact bilaterally and conjunctivae normal CONJUNCTIVA: Yes conjunctivae normal Neck/C-Spine: COMMON NORMALS: full ROM Resp: COMMON NORMALS: normal respiratory effort, No use of accessory muscles and clear to auscultation bilaterally AUSCULTATION: clear to auscultation bilaterally Cardio: COMMON NORMALS: regular rate and regular rhythm RATE: regular rate RHYTHM: regular rhythm Back/Pelvis: COMMON NORMALS: thoracic and lumbar spine normal to inspection OTHER: Severe limitation of range of motion of the thoracic and lumbar back due to pain. There is no tenderness to thoracic spine, though there is a moderate amount of tenderness to the lumbar spine, as well as to the associated left paralumbar muscles. Straight leg raise is positive on the left. No signs of trauma or bruising. Distal neurovascular status is intact. Deep tendon reflexes normal. Extremity: COMMON NORMALS: normal to inspection and full ROM Neuro: COMMON NORMALS: patient oriented x3, moves all extremities, no focal motor deficits, no sensory deficits noted and deep tendon reflexes 2+ bilaterally SENSORIUM/ORIENTATION: Yes alert GAIT: Yes Antalgic gait present Psych: COMMON NORMALS: mental status grossly normal Skin: COMMON NORMALS: no rashes or lesions noted GENERAL SKIN EXAM: no rashes or lesions noted Course Vital Signs: Vital signs: Vital Signs Temperature 97.9 F 08/07/23 13:17 Pulse Rate 88 08/07/23 13:17 Respiratory Rate 16 08/07/23 13:17 Blood Pressure 122/79 08/07/23 13:17 Pulse Oximetry 97 08/07/23 13:17 MDM - Back Pain/Injury Medical Decision Making Patient presents for couple days of left-sided back pain with radiation in the left leg. History of sciatica. States pain began after lifting some heavy. X-ray did not demonstrate any acute findings. His urinalysis did not show any blood in his urine or other concerning signs of a potential kidney stone. He does report moderate relief of the pain after receiving a shot of Decadron and Toradol. Also was given a muscle relaxer. He states he is ready to go home and return precautions were given. Will send home with prednisone and muscle relaxers to take. Reasons to return were discussed. Labs Radiology Impressions Lumbar Spine X-Ray 08/07/23 13:44 IMPRESSION: Stable nonacute findings. Laboratory Results Urine Color Yellow (Yellow) 08/07/23 14:00 Urine Appearance Clear (CLEAR) 08/07/23 14:00 Urine pH 5 (5-7) 08/07/23 14:00 Ur Specific [place] 1.015 (1.005-1.030) 08/07/23 14:00 Urine Protein Neg (Negative) 08/07/23 14:00 Urine Glucose (UA) Norm (Normal) 08/07/23 14:00 Urine Ketones Negative (Negative) 08/07/23 14:00 Urine Blood Neg (Negative) 08/07/23 14:00 Urine Nitrate Negative (Negative) 08/07/23 14:00 Urine Bilirubin Neg (Negative) 08/07/23 14:00 Urine Urobilinogen Norm mg/dL (Negative) 08/07/23 14:00 Ur Leukocyte Esterase Negative (Negative) 08/07/23 14:00 All radiology interpretation(s) finalized by discharge Discharge Plan Discharge Patient Disposition: Home Clinical Impression: Sciatica Qualifiers: Laterality: left Qualified Code(s): M54.32 - Sciatica, left side Condition: Stable Prescriptions: New methocarbamol 750 mg tablet 750 mg PO Q8H 5 Days Qty: 15 0RF prednisone 20 mg tablet 60 mg PO ONCE 5 Days Qty: 15 0RF No Action omeprazole 20 mg capsule,delayed release(DR/EC) 20 mg PO QAM aspirin [Adult Aspirin Regimen] 81 mg tablet,delayed release (DR/EC) 81 mg PO QAM simvastatin 20 mg tablet 20 mg PO QAM fluticasone propion-salmeterol [Advair Diskus] 500-50 mcg/dose blister with device 1 inh inhalation BID albuterol sulfate [Ventolin HFA] 90 mcg/actuation HFA aerosol inhaler 2 puff inhalation Q6H PRN (Reason: Shortness Of Breath) gabapentin 600 mg tablet 600 mg PO TID permethrin 5 % cream 1 applic topical Q14D Qty: 60 0RF Rx Instructions: apply second treatment 14 days after first treatment if live lice remain nitrofurantoin macrocrystal 100 mg capsule PO losartan-hydrochlorothiazide 50-12.5 mg tablet PO bupivacaine (PF) 0.25 % (2.5 mg/mL) solution 1 ml intra-articular ONCE Qty: 1 0RF metoprolol succinate 200 mg tablet extended release 24 hr 200 mg PO QAM Qty: 90 3RF fluticasone propionate [Flonase Allergy Relief] 50 mcg/actuation spray,suspension 1 spray intranasal BID Rx Instructions: administer into each nostril sulfamethoxazole-trimethoprim [Bactrim DS] 800-160 mg tablet 1 tab PO BID 10 Days Qty: 20 0RF mupirocin 2 % ointment 1 applic topical TID Qty: 22 0RF lorazepam 1 mg tablet See Rx Instructions PO ONCE PRN (Reason: anxiety) Qty: 1 0RF Rx Instructions: take 0.5 tablet 1 hour prior to scan, may repeat after 30 minutes if needed. triamterene-hydrochlorothiazid 37.5-25 mg capsule 1 cap PO QAM albuterol sulfate 90 mcg/actuation HFA aerosol inhaler 2 inh inhalation Q4H PRN (Reason: shortness of breath or wheezing) Qty: 8.5 0RF ketorolac 10 mg tablet 10 mg PO Q8H PRN (Reason: pain) Qty: 30 0RF Discharge Orders: Discharge ED (Routine); Ordered 08/07/23 Ordered By: Zion Bryant Referrals: Jared Villarreal MD [Primary Care Provider] - Discharge Diet: Usual diet Discharge Activity: Increase activity as tolerated Patient Instructions: Sciatica (ED), Pain Management Activity Restrictions/Additional Instructions: Prednisone and muscle relaxer. Take ibuprofen at home for added pain relief. Gentle range of motion exercises as tolerated. Follow-up with your primary care provider. Return with any new or concerning symptoms you may have. Coding Level of Care Code ED Destination Specialist for [facility] Stack
[2023-08-07] MEDS: methocarbamol 750 mg Tablet PO (13:52)
[2023-08-07] MEDS: ketorolac 60 mg/2 mL INJ IM (13:55)
[2023-08-07] MEDS: dexamethasone 10 mg/mL INJ IM (13:56)
[2023-08-07 14:04] LABS: Add Urine Microscopic? NO; Charge for UA Resulting for Rev
[2023-08-07 14:08] LABS: Bilirubin Urine Neg (Negative); Blood Urine Neg (Negative); Glucose Urine UA Norm (Normal); Ketones Urine Negative (Negative); Leukocyte Esterase Urine Negative (Negative); Nitrate Urine Negative (Negative); Protein Urine Neg (Negative); Specific Gravity, Urine 1.015 (1.005-1.030); Urine Appearance Clear (CLEAR); Urine Color Yellow (Yellow); Urobilinogen Urine Norm (Negative); pH Urine 5 (5-7)
[2023-08-07 15:38] VITALS: BP 145/89; PULSE 91; RESP 17; O2SAT 95
== END 2023-08-07 15:38 | disposition home or self-care (01) ==
PROVIDERS: Emergency Provider Physician Assistant; PCP Family Medicine
DX: M54.32 Sciatica, left side (principal); Z79.82 Long term (current) use of aspirin; Z85.6 Personal history of leukemia; E78.5 Hyperlipidemia, unspecified; I10 Essential (primary) hypertension; F17.210 Nicotine dependence, cigarettes, uncomplicated
CPT/HCPCS: 72100; 81003; 96372; 99284; J1100; J1885

== ENCOUNTER 2023-09-08 13:39 | Oncology outpatient (recurring) (ONCR) | payer MEDICARE, MEDICAID, SELFPAY ==
[2023-09-08 13:58] LABS: Basophils # 0.1 10^3/uL (0.0-0.1); Basophils % 0.5 %; Eosinophils # 0.5 10^3/uL (0.0-0.8); Eosinophils % 2.7 %; Hematocrit 43.2 % (37-53); Lymphocytes # 8.5 10^3/uL (0.8-4.8); Lymphocytes % 47.4 %; Mean Corpuscular HGB Conc 32.9 g/dL (30-55); Mean Corpuscular Hemoglobin 28.3 pg (27-33); Mean Corpuscular Volume 86.2 fl (82-101); Mean Platelet Volume 10.5 fL (7.4-10.4); Monocytes # 1.1 10^3/uL (0.2-0.9); Neutrophils # 7.44 10^3/uL (1.8-7.7); Neutrophils % 41.8 %; Nucleated Red Blood Cells % 0 %; Platelet Count 281 10^3/cmm (157-399); Red Blood Count 5.01 10^6/uL (3.85-5.65); Red Cell Distribution Width 15.5 % (12.1-15.1); White Blood Count 17.81 10^3/uL (3.29-11.43)
[2023-09-08 14:39] LABS: Slide Review Slide Review Perform
[2023-09-08 14:44] LABS: Alanine Aminotransferase 20 U/L (0-41); Albumin Level 3.9 g/dL (3.5-5.2); Alkaline Phosphatase 69 U/L (40-130); Anion Gap 15.7 (5-19); Aspartate Amino Transferase 20 U/L (0-40); Blood Urea Nitrogen 17 mg/dL (8-23); Calcium 8.8 mg/dL (8.5-10.5); Carbon Dioxide 20 mmol/L (22-29); Chloride 109 mmol/L (98-107); Globulin 2.4 g/dL (1.3-4.6); Glucose 111 mg/dL (65-115); Lactate Dehydrogenase 198 U/L (135-225); Osmolality Calculated 292 mOsm/kg (285-295); Potassium 4.7 mmol/L (3.5-5.1); Sodium 140 mmol/L (136-145); Total Bilirubin 0.2 mg/dL (0.15-1.2); Total Protein 6.3 g/dL (6.6-8.7)
== END 2023-09-29 23:59 | disposition home or self-care (01) ==
PROVIDERS: Internal Medicine; PCP Family Medicine; Visit Provider Internal Medicine Hematology & Oncology
DX: F17.210 Nicotine dependence, cigarettes, uncomplicated; C91.10 Chronic lymphocytic leukemia of B-cell type not having achieved remission; Z79.899 Other long term (current) drug therapy
CPT/HCPCS: 36415; 80053; 83615; 85025; 99214

== ENCOUNTER 2023-09-09 10:35 | Outpatient (CLI) | payer MEDICARE, MEDICAID, SELFPAY ==
--- NOTE | 2023-09-09 10:41 | XRR_ITS ---
PROCEDURE INFORMATION: Exam: XR Left Hip Exam date and time: 09/09/2023 10:54 AM Age: 63 years old Clinical indication: Hip pain; Left hip; Patient HX: Pain in groin and lateral aspect of hip, says he hears cracking in it when he walks; Additional info: Left hip joint pain TECHNIQUE: Imaging protocol: Radiologic exam of the left hip. Views: 2 or 3 views hip with pelvis when performed. COMPARISON: CT chest abdpel w/*[id number] 12/18/2021 2:55 PM FINDINGS: Bones/joints: Unremarkable. No acute fracture. Slight articular surface narrowing and spurring. No fracture or dislocation. Degenerative changes of the lower lumbar spine. Soft tissues: Unremarkable. XR/XR hip LT 2-3V wo/w pel* [id number] IMPRESSION: No acute findings.
== END 2023-09-09 10:36 | disposition home or self-care (01) ==
LOC: RAD 10:36
PROVIDERS: PCP Family Medicine; Visit Provider Family Medicine
DX: M25.552 Pain in left hip (principal); M51.36 Other intervertebral disc degeneration, lumbar region
CPT/HCPCS: 73502

== ENCOUNTER 2023-10-20 10:32 | Outpatient (CLI) | payer MEDICARE, MEDICAID, SELFPAY ==
--- NOTE | 2023-10-20 10:45 | XR_ITS ---
WS: [id number] RIGHT KNEE: 3 VIEW(S) TECHNIQUE: AP, oblique(s) and lateral. HISTORY: BILATERAL KNEE PAIN COMPARISON: None available. No fracture or dislocation. No joint space narrowing or osteophytes. No joint effusion. No soft tissue abnormality. XR/XR knee RT 3V* [id number] IMPRESSION: Normal RIGHT knee.
--- NOTE | 2023-10-20 10:45 | XR_ITS ---
WS: [id number] LEFT KNEE: 3 VIEW(S) TECHNIQUE: AP, oblique(s) and lateral. HISTORY: BILATERAL KNEE PAIN COMPARISON: None available. No fracture or dislocation. No joint space narrowing or osteophytes. No joint effusion. No soft tissue abnormality. XR/XR knee LT 3V* [id number] IMPRESSION: Normal LEFT knee.
--- NOTE | 2023-10-20 10:47 | XR_ITS ---
WS: [id number] Lumbar spine, 3 views, 10/20/2023 Clinical Data: LUMBAR BACK PAIN Comparison: Lumbar spine, 08/07/2023 Findings: There is severe osteoarthritis of all the lumbar vertebral bodies with degenerative disc narrowing at all levels. There is a dextroscoliosis. The transverse processes and SI joints are normal. No compre ssion fractures are seen. XR/XR lumbar spine 2-3V* [id number] Impression: 1. Severe osteoarthritis and degenerative disc narrowing at all lumbar levels. 2. Dextroscoliosis.
== END 2023-10-20 10:33 | disposition home or self-care (01) ==
LOC: RAD 10:39
PROVIDERS: PCP Family Medicine; Visit Provider Family Medicine
DX: M25.562 Pain in left knee (principal); M25.561 Pain in right knee; M47.816 Spondylosis without myelopathy or radiculopathy, lumbar region; M41.80 Other forms of scoliosis, site unspecified
CPT/HCPCS: 72100; 73562

== ENCOUNTER → 2023-10-28 08:13 | Outpatient (BNVA) | payer MEDICARE, MEDICAID, SELFPAY | PROVIDERS: Visit Provider Orthopaedic Surgery | DX: M25.561 Pain in right knee; M25.562 Pain in left knee; G89.29 Other chronic pain | CPT/HCPCS: 99214 ==

== ENCOUNTER → 2023-11-16 10:49 | Outpatient (BNVA) | payer MEDICARE, MEDICAID, SELFPAY | PROVIDERS: Visit Provider Orthopaedic Surgery | DX: M54.50 Low back pain, unspecified (principal) | CPT/HCPCS: 72110; 99214 ==

== ENCOUNTER 2023-11-22 13:13 | Outpatient (RCR) | payer MEDICARE, MEDICAID, SELFPAY | END 2023-11-29 23:59 | disposition home or self-care (01) | LOC: SPT 13:13 | PROVIDERS: Visit Provider Family Medicine | DX: M54.50 Low back pain, unspecified (principal); M25.569 Pain in unspecified knee | CPT/HCPCS: 97161 ==

== ENCOUNTER 2023-12-01 13:15 | Outpatient (CLI) | payer MEDICARE, MEDICAID, SELFPAY ==
--- NOTE | 2023-12-01 13:45 | MR_ITS ---
WS: [id number] MRI RIGHT KNEE NONCONTRAST TECHNIQUE: Axial PD, coronal PD fat sat, coronal PD, sagittal PD, and sagittal PD fat-sat images obta ined. CLINICAL INFORMATION: knee pain COMPARISON: None. FINDINGS: Mild to moderate tricompartmental arthritis. Distal quadriceps and patellar tendons are intact. Linda l ACL and PCL. Tiny suprapatellar effusion. Prepatellar and infrapatellar soft tissue edema. Moderate chondromalacia patella. Normal popliteal fossa. Medial and lateral patellar retinaculum appe ar intact. Medial and lateral collateral ligaments appear intact. Normal ACL and PCL. Chronic thinning of the medial and lateral meniscus. No acute appearing meniscal tears. Fibula head appears normal. MR/MR knee RT wo con* [id number] IMPRESSION: 1. Normal ACL and PCL. 2. Small suprapatellar effusion. Grade III chondromalacia patella. 3. Chronic thinning of the medial and lateral meniscus which appear intact. 4. Grade II and III chondromalacia medial lateral joint compartments. 5. Medial and lateral collateral ligaments appear intact. 6. No other acute findings. Outbridge grading: grade III: partial-thickness cartilage loss with focal ulcer ation
--- NOTE | 2023-12-01 14:30 | MR_ITS ---
WS: [id number] MRI LEFT KNEE NONCONTRAST TECHNIQUE: Axial PD, coronal PD fat sat, coronal PD, sagittal PD, and sagittal PD fat-sat images obta ined. CLINICAL INFORMATION: knee pain COMPARISON: None. FINDINGS: Distal quadriceps and patella tendons are intact. ACL and PCL are intact. Hypertrophic patella. Moder ate chondromalacia patella. Normal medial and lateral meniscus. No acute appearing meniscal tears. Fi bula head appears normal. Normal medial and lateral collateral ligaments. Normal popliteal fossa. Normal popliteus. Mild to moderate tricompartmental arthritis with grade II c hondromalacia in the medial and lateral joint compartments. Grade 2-3 chondromalacia patella. Medial and lateral patellar retinaculum appear intact. No other acute findings. MR/MR knee LT wo con* [id number] IMPRESSION: 1. ACL and PCL appear intact. 2. Mild to moderate tricompartmental arthritis with grade II chondromalacia in the medial and lateral joint compartments. 3. Grade 2-3 chondromalacia patella. 4. Chronic thinning of the medial and lateral meniscus. No acute appearing men iscal tears. 5. No other acute findings. Outbridge grading: grade III: partial-thickness cartilage loss with focal ulcer ation
--- NOTE | 2023-12-01 15:15 | MR_ITS ---
WS: [id number] MRI LUMBAR SPINE NONCONTRAST TECHNIQUE: Sagittal T1, T2 and STIR imaging. Axial T1 and T2 imaging. CLINICAL INFORMATION: lumbar pain COMPARISON: MRI 2020 FINDINGS: Mild to moderate central canal stenosis C3-C4 C4-C5 C5-C6 in the cervical spine on the breading machine tender imaging. Small amount of myelomalacia at C4. Lumbar scoliosis. No acute compression. Advanced multilevel degenerative disc disease. Diffuse promin ent circumferential epidural fat contributes to central canal stenosis. L1-L2: Mild disc bulge with mild central canal stenosis. Narrowing RIGHT subarticular recess. Mild fa cet arthropathy. Moderate RIGHT foraminal narrowing. L2-L3: Moderate narrowing of the thecal sac due to disc bulging with facet arthropathy and prominent epidural fat. Moderate LEFT foraminal narrowing progressed. Mild RIGHT foraminal narrowing. L3-L4: Disc osteophyte protrusion with moderate to severe narrowing of the thecal sac. Prominent epid ural fat. Moderate facet arthropathy. Moderate LEFT foraminal narrowing similar to previous. L4-L5: Moderate to severe narrowing of the thecal sac progressed compared to previous. Disc osteophyt e complex with prominent circumferential epidural fat contributes to stenosis. Moderate facet arthrop athy. Severe LEFT and mild to moderate RIGHT foraminal narrowing. L5-S1: Disc osteophyte complex with endplate ridging. Tapering of the thecal sac distally. Moderate f acet arthropathy. Severe RIGHT foraminal narrowing. Visualized pelvic bony structures: Normal. Paravertebral soft tissues: Normal. Partially visualized prominent periaortic and retroperitoneal lymph nodes extending into the common i liac regions. This could be further evaluated CT abdomen pelvis. Partially visualized fracture S3 sacral segment with edema. MR/MR lumbar spine wo con* [id number] IMPRESSION: 1. Multilevel narrowing of the thecal sac with prominent circumferential epidu ral fat contributing to stenosis. 2. Mild to moderate narrowing of the thecal sac L1-2 appears progressed compar ed to previous. 3. Moderate to severe narrowing of thecal sac L2-L3 and L3-L4 slightly progres sed compared to previous with redundancy of the cauda equina nerve rootlets. Pr ogressed moderate to severe narrowing of the thecal sac at L4-5. 4. Moderate to severe foraminal narrowing worse at RIGHT L1-2, LEFT L2-3, LEFT L3-4, LEFT L4-5, and RIGHT L5-S1 5. Partially visualized prominent periaortic and retroperitoneal lymph nodes e xtending into the common iliac regions. This could be further evaluated CT abdo men pelvis. 6. Partially visualized edema with cortical step-off involving the S3 vertebra l body compatible with insufficiency or traumatic fracture. Recommend correlati on with sacral pain. This can be followed up with MRI of the sacrum if indicate d. Trace presacral edema.
== END 2023-12-01 13:16 | disposition home or self-care (01) ==
LOC: RAD 13:16
PROVIDERS: PCP Family Medicine; Visit Provider Orthopaedic Surgery
DX: M48.02 Spinal stenosis, cervical region (principal); M99.63 Osseous and subluxation stenosis of intervertebral foramina of lumbar region; M25.78 Osteophyte, vertebrae; M47.896 Other spondylosis, lumbar region; M47.898 Other spondylosis, sacral and sacrococcygeal region; M99.64 Osseous and subluxation stenosis of intervertebral foramina of sacral region; M17.12 Unilateral primary osteoarthritis, left knee; M22.42 Chondromalacia patellae, left knee; M17.11 Unilateral primary osteoarthritis, right knee; M22.41 Chondromalacia patellae, right knee
CPT/HCPCS: 72148; 73721

== ENCOUNTER → 2023-12-09 13:30 | Outpatient (BNVA) | payer MEDICARE, MEDICAID, SELFPAY | PROVIDERS: PCP Family Medicine; Referring Provider Family Medicine; Visit Provider Specialist | DX: R29.898 Other symptoms and signs involving the musculoskeletal system (principal); R20.0 Anesthesia of skin; R20.2 Paresthesia of skin | CPT/HCPCS: 95910 ==

== ENCOUNTER 2023-12-15 08:19 | Oncology outpatient (recurring) (ONCR) | payer MEDICARE, MEDICAID, SELFPAY ==
[2023-12-15 09:31] LABS: Basophils # 0.1 10^3/uL (0.0-0.1); Basophils % 0.5 %; Eosinophils # 0.6 10^3/uL (0.0-0.8); Eosinophils % 2.9 %; Hematocrit 47.2 % (37-53); Lymphocytes # 9.1 10^3/uL (0.8-4.8); Mean Corpuscular Hemoglobin 28.4 pg (27-33); Mean Corpuscular Volume 88.9 fl (82-101); Mean Platelet Volume 11.4 fL (7.4-10.4); Monocytes # 1.2 10^3/uL (0.2-0.9); Monocytes % 6.1 %; Neutrophils # 8.27 10^3/uL (1.8-7.7); Neutrophils % 42.5 %; Nucleated Red Blood Cells % 0 %; Platelet Count 252 10^3/cmm (157-399); Red Blood Count 5.31 10^6/uL (3.85-5.65); Red Cell Distribution Width 13.8 % (12.1-15.1); White Blood Count 19.44 10^3/uL (3.29-11.43)
[2023-12-15 09:55] LABS: Slide Review Slide Review Perform
[2023-12-15 09:57] LABS: Alanine Aminotransferase 19 U/L (0-41); Albumin Level 4.1 g/dL (3.5-5.2); Alkaline Phosphatase 81 U/L (40-130); Anion Gap 14.2 (5-19); Aspartate Amino Transferase 18 U/L (0-40); Blood Urea Nitrogen 21 mg/dL (8-23); Calcium 9.4 mg/dL (8.5-10.5); Carbon Dioxide 26 mmol/L (22-29); Chloride 108 mmol/L (98-107); Creatinine Clr Calc Pharmacy 67.1855; Globulin 2.7 g/dL (1.3-4.6); Glomerular Filtration Rate 61.6 mL/min (90-130); Glucose 92 mg/dL (65-115); Lactate Dehydrogenase 401 U/L (135-225); Osmolality Calculated 301 mOsm/kg (285-295); Potassium 4.2 mmol/L (3.5-5.1); Sodium 144 mmol/L (136-145); Total Bilirubin 0.2 mg/dL (0.15-1.2); Total Protein 6.8 g/dL (6.6-8.7)
== END 2023-12-30 23:59 | disposition home or self-care (01) ==
PROVIDERS: Nurse Practitioner Family; PCP Family Medicine; Visit Provider Internal Medicine Hematology & Oncology
DX: C91.10 Chronic lymphocytic leukemia of B-cell type not having achieved remission (principal); F17.210 Nicotine dependence, cigarettes, uncomplicated; Z79.899 Other long term (current) drug therapy
CPT/HCPCS: 36415; 80053; 83615; 85025; 99214

== ENCOUNTER → 2023-12-16 12:56 | Outpatient (BNVA) | payer MEDICARE, MEDICAID, SELFPAY | PROVIDERS: PCP Family Medicine; Visit Provider Orthopaedic Surgery | DX: M17.0 Bilateral primary osteoarthritis of knee (principal); R20.0 Anesthesia of skin; R20.2 Paresthesia of skin; Z01.818 Encounter for other preprocedural examination; M41.50 Other secondary scoliosis, site unspecified | CPT/HCPCS: 80053; 81001; 85025; 99214 ==

== ENCOUNTER → 2023-12-24 12:02 | Outpatient (BNVA) | payer MEDICARE, MEDICAID, SELFPAY | PROVIDERS: PCP Family Medicine; Visit Provider Family Medicine | DX: Z01.818 Encounter for other preprocedural examination (principal); I49.8 Other specified cardiac arrhythmias | CPT/HCPCS: 93005 ==

== ENCOUNTER 2023-12-29 15:17 | Emergency (ER) | payer MEDICARE, MEDICAID, SELFPAY ==
[2023-12-29 15:23] VITALS: BP 149/97; PULSE 72; RESP 18; TEMP 36.7; O2SAT 96; BMI 31.4
--- NOTE | 2023-12-29 15:53 | ED_ITS ---
HPI - Extremity Problem General: Chief complaint: Extremity Problem,Nontraumatic Stated complaint: hand weakness (no special education director strength) Time Seen by Provider: 12/29/23 15:32 History of Present Illness: 63-year-old male patient comes in today for complaints of numbness and weakness to bilateral hands. This has been going on for several months now. Patient has been seen by orthopedics and neurology for nerve conduction testing. Patient is been diagnosed with both tendinitis and carpal tunnel syndrome. Patient reports some frustration and not being able to use his hands like he was. Patient is looking for assistance for his complaints. Related Data Home Medications Medication Instructions Recorded Confirmed aspirin 81 mg tablet,delayed 81 mg PO QAM 01/18/20 12/24/23 release (Adult Aspirin Regimen) omeprazole 20 mg capsule,delayed 20 mg PO QAM 01/18/20 12/24/23 release simvastatin 20 mg tablet 20 mg PO QAM 01/18/20 12/24/23 albuterol sulfate 90 mcg/actuation 2 puff inhalation Q6H PRN 07/04/20 12/24/23 aerosol inhaler (Ventolin HFA) Shortness Of Breath fluticasone 500 mcg-salmeterol 50 1 inh inhalation BID 07/04/20 12/24/23 mcg/dose blistr powdr for inhalation (Advair Diskus) gabapentin 600 mg tablet 600 mg PO TID 05/12/21 12/24/23 losartan 50 mg-hydrochlorothiazide tab PO 06/07/23 12/24/23 12.5 mg tablet metoprolol succinate 25 mg mg PO 09/08/23 12/24/23 tablet,extended release 24 hr montelukast 10 mg tablet mg PO 09/08/23 12/24/23 naproxen 500 mg tablet mg PO 09/08/23 12/24/23 baclofen 20 mg tablet mg PO 12/15/23 12/24/23 ropinirole 0.5 mg tablet mg PO 12/15/23 12/24/23 Previous Rx's Medication Instructions Recorded albuterol sulfate 90 mcg/actuation 2 inh inhalation Q4H PRN shortness 07/22/22 aerosol inhaler of breath or wheezing #8.5 grams mupirocin 2 % topical ointment 1 applic topical TID #22 grams 07/01/23 walker #1 ea 12/23/23 Allergies Allergy/AdvReac Type Severity Reaction Status Date / Time morphine AdvReac ITCHING Verified 12/24/23 11:41 Review of Systems General: Reports: 10 or more systems reviewed and unremarkable except in HPI and below PFSH ED PFSH: Medical History Chronic lymphocytic leukemia Elevated LDH Hyperlipidemia Chronic back pain GERD (gastroesophageal reflux disease) History of sciatica History of hypertension Scoliosis History of esophageal dilatation Surgical History History of lumbar laminectomy History of hernia repair History of appendectomy Family History Other CAD (coronary artery disease) Cancer Chronic kidney disease (CKD) Diabetes Hypertension Lung disease Denies family history of Clotting disorder Dementia Hyperlipidemia Psychiatric illness Suicide Anesthesia complication Bleeding disorder Stroke Social History Smoking and tobacco/nicotine status: current every day tobacco/nicotine user cigarettes Packs smoked per day: 1 Years cigarettes smoked: 40 Alcohol intake: current Alcohol intake frequency: other Substance/Drug Use: never Lives independently: Yes Physical Exam Const: COMMON NORMALS: alert HENMT: COMMON NORMALS: normocephalic HEAD & SCALP: normocephalic Neck/C-Spine: COMMON NORMALS: full ROM Resp: COMMON NORMALS: normal respiratory effort Cardio: COMMON NORMALS: regular rate RATE: regular rate Back/Pelvis: COMMON NORMALS: thoracic and lumbar spine normal to inspection Extremity: COMMON NORMALS: normal to inspection Neuro: SENSORIUM/ORIENTATION: Yes alert Skin: COMMON NORMALS: turgor normal GENERAL SKIN EXAM: turgor normal Course Vital Signs: Vital signs: Vital Signs Temperature 98.0 F 12/29/23 15:23 Pulse Rate 72 12/29/23 15:23 Respiratory Rate 18 12/29/23 15:23 Blood Pressure 149/97 12/29/23 15:23 Pulse Oximetry 96 12/29/23 15:23 Oxygen Delivery Me thod Room Air 12/29/23 15:23 MDM - Extremity (Nontraumatic) Medical Decision Making Patient comes in for the frustration of having weakness to bilateral hands with numbness. Patient has been seen by neurology and orthopedics and has been diagnosed with both tendinitis and carpal tunnel syndrome. Patient was looking for further suggestions and treatment options. Differential diagnosis tendinitis, carpal tunnel syndrome, malingering. Patient is already being treated and several avenues for this complaints. I recommended physical therapy but patient does not want to do physical therapy. I placed patient in a cock up splint for his right wrist as he is already has [address] for his left wrist. Patient was given 1 dose of dexamethasone to help with inflammation. Otherwise patient should just follow back up with primary care or radiological health specialist for further treatment. Patient reported understanding. No radiology studies performed this visit Discharge Plan Discharge Patient Disposition: Home Clinical Impression: Paresthesia of hand, bilateral, Bilateral carpal tunnel syndrome Condition: Stable Prescriptions: No Action omeprazole 20 mg capsule,delayed release(DR/EC) 20 mg PO QAM aspirin [Adult Aspirin Regimen] 81 mg tablet,delayed release (DR/EC) 81 mg PO QAM simvastatin 20 mg tablet 20 mg PO QAM fluticasone propion-salmeterol [Advair Diskus] 500-50 mcg/dose blister with device 1 inh inhalation BID albuterol sulfate [Ventolin HFA] 90 mcg/actuation HFA aerosol inhaler 2 puff inhalation Q6H PRN (Reason: Shortness Of Breath) gabapentin 600 mg tablet 600 mg PO TID losartan-hydrochlorothiazide 50-12.5 mg tablet PO montelukast 10 mg tablet PO metoprolol succinate 25 mg tablet extended release 24 hr PO naproxen 500 mg tablet PO baclofen 20 mg tablet PO ropinirole 0.5 mg tablet PO bupivacaine (PF) 0.25 % (2.5 mg/mL) solution 1 ml intra-articular ONCE Qty: 1 0RF mupirocin 2 % ointment 1 applic topical TID Qty: 22 0RF (DME) walker See Rx Instructions .Route .MEDSUPPLY Qty: 1 0RF Rx Instructions: As directed Length of service 99 albuterol sulfate 90 mcg/actuation HFA aerosol inhaler 2 inh inhalation Q4H PRN (Reason: shortness of breath or wheezing) Qty: 8.5 0RF Discharge Orders: Discharge ED (Routine); Ordered 12/29/23 Ordered By: Michael Damon Referrals: Jared Villarreal MD [Primary Care Provider] - Discharge Diet: Usual diet Discharge Activity: Increase activity as tolerated Patient Instructions: Paresthesia (ED) Activity Restrictions/Additional Instructions: Use Velcro wrist splints for comfort. Activity as tolerated. Follow-up with primary care for further recommendations and treatment. Continue with routine medications otherwise as directed. I would still recommend may be visiting with a physical therapist for treatment. Return to ER for new concerns. Coding Level of Care Code ED Pain[facility] for Axel Stack
[2023-12-29] MEDS: dexamethasone 10 mg/mL INJ IM (16:27)
[2023-12-29 16:30] VITALS: BP 143/97; PULSE 89; O2SAT 94
== END 2023-12-29 16:31 | disposition home or self-care (01) ==
PROVIDERS: Emergency Provider Nurse Practitioner Family; PCP Family Medicine
DX: G56.03 Carpal tunnel syndrome, bilateral upper limbs (principal); R20.2 Paresthesia of skin; Z79.82 Long term (current) use of aspirin; F17.210 Nicotine dependence, cigarettes, uncomplicated; C91.10 Chronic lymphocytic leukemia of B-cell type not having achieved remission
CPT/HCPCS: 96372; 99284; J1100

== ENCOUNTER 2024-01-07 10:52 | Outpatient (CLI) | payer MEDICARE, MEDICAID, SELFPAY ==
--- NOTE | 2024-01-07 11:00 | MR_ITS ---
WS: [id number] MRI CERVICAL SPINE NONCONTRAST HISTORY: neck pain/ numbness and tingling COMPARISON: 10/04/2019 Technique: Multiplanar, multisequence noncontrast imaging of the cervical spine. Straightening and reversal the normal cervical curvature centered at C5. Posterior reversal of the cu rve by 4 mm. Mild straightening and deformity of the cervical cord. Long segment area of increased T2 signal extends over a length of 4.3 cm in the cervical cord from myelomalacia. This was not present on the prior study. Visualized posterior fossa is negative. Craniocervical junction, C1 and C2 relationship, odontoid process and soft tissues are normal. C2-C3: Small foraminal osteophytes. No stenosis. C3-C4: C3 anterolisthesis by 3 mm. Osteophytic ridging and disc bulging. Complete effacement of CSF. Exiting nerve roots are very difficult to visualize. High-grade, severe central and bilateral foramin al stenosis. Mild facet arthritis, RIGHT greater than LEFT. C4-C5: Diffuse annular disc bulging with osteophytic ridging. Central to RIGHT paracentral disc protr usion. Severe central and bilateral foraminal stenosis. Bilateral facet arthritis. C5-C6: Diffuse annular disc bulging with osteophytic ridging. Moderate to severe central with severe bilateral foraminal stenosis and facet arthritis. C6-C7: Diffuse annular disc bulging and osteophytic ridging. Moderate to severe central with severe b ilateral foraminal stenosis. Facet arthritis. C7-T1: Diffuse annular disc bulging with osteophytic ridging and facet disease. Moderate central and bilateral foraminal stenosis. Edema is noted in the soft tissues of the upper LEFT chest. This soft tissue edema is surrounding the clavicle and may involve the muscles of the shoulder and chest wall. Exact muscles are difficult to determine as only a small portion of the chest is included. Suspect the edema may be related to cervi ever root stenosis resulting in edema. MR/MR cervical spin wo con* [id number] IMPRESSION: 1. Progression of advanced degenerative changes and stenoses throughout the ce rvical spine since 10/04/2019. 2. New 4.3 cm segment of cervical myelomalacia. Cord myelomalacia begins at th e mid 3 vertebral body and extends to the mid C6 vertebral body. 3. Reversal of the normal cervical lordosis. 4. C3-4 and C4-5: Severe central and bilateral foraminal stenosis and facet ar thropathy. 5. C5-6 and C6-7: Moderate to severe central with severe bilateral foraminal s tenosis. 6. C7-T1: Moderate central and bilateral foraminal stenosis. 7. Edema noted in several of the muscles in the LEFT upper chest. The exact mu scles are difficult to determine but the pectoralis muscle is involved. Edema m ay be related to the severe cervical root stenosis encroachment.
== END 2024-01-07 10:53 | disposition home or self-care (01) ==
LOC: RAD 10:53
PROVIDERS: PCP Family Medicine; Visit Provider Orthopaedic Surgery
DX: M50.03 Cervical disc disorder with myelopathy, cervicothoracic region (principal); M43.12 Spondylolisthesis, cervical region; M25.78 Osteophyte, vertebrae; M50.21 Other cervical disc displacement, high cervical region; M50.321 Other cervical disc degeneration at C4-C5 level; M50.322 Other cervical disc degeneration at C5-C6 level; M50.323 Other cervical disc degeneration at C6-C7 level; M51.34 Other intervertebral disc degeneration, thoracic region; M99.61 Osseous and subluxation stenosis of intervertebral foramina of cervical region; M47.892 Other spondylosis, cervical region; M99.62 Osseous and subluxation stenosis of intervertebral foramina of thoracic region
CPT/HCPCS: 72141

== ENCOUNTER → 2024-01-10 15:44 | Outpatient (BNVA) | payer MEDICARE, MEDICAID, SELFPAY | PROVIDERS: PCP Family Medicine; Visit Provider Specialist | DX: M17.0 Bilateral primary osteoarthritis of knee; M25.561 Pain in right knee; M25.562 Pain in left knee | CPT/HCPCS: 73560; 73565; 99215 ==

== ENCOUNTER → 2024-01-11 14:15 | Outpatient (BNVA) | payer MEDICARE, MEDICAID, SELFPAY | PROVIDERS: PCP Family Medicine; Visit Provider Orthopaedic Surgery | DX: Z09 Encounter for follow-up examination after completed treatment for conditions other than malignant neoplasm (principal) | CPT/HCPCS: 99214 ==

== ENCOUNTER 2024-01-14 12:52 | Inpatient (IN) | payer MEDICARE, MEDICAID, SELFPAY ==
--- OUTSIDE RECORDS SUMMARY | 2024-01-13 15:04 | XMS_ITS | Patient Health Record ---
Author Name Unknown Organization [facility] Address [address] [place], [place] [id number] Care Team Providers Care Final Inspector Motorcyles Name Role Phone Sebastian Mi MD Unavailable [phone] Moncho Elliott DO Unavailable Unavailable Allergies Allergen (clinical drug ingredient) Drug/Non Drug Allergy documented on EMR Reaction Allergy Type Onset Date Status morphine morphine itch Drug Allergy Active Reason For Referral Reason Polyarthralgia; Shou lder pain, right; Back pain. lumbar, with radiculopathy Diagnosis 1 Pain in unspecified joint (M25.50) Diagnosis 2 Pain in right should er (M25.511) Diagnosis 3 Radiculopathy, lumba r region (M54.16) Referring Provider First Name Jared Referring Provider Last Name Cherelle Referred [employer] [facility] Referred Provider Sebastian Mi Referred Address [address], [id number], Referred Provider Specialty Pain Managem ent General Notes Agatha Jade 03/02 11:27:11 AM > Sent for insurance verification. Also need to make sure patient updated photo ID., Agatha Jade 04/01/2023 04:15:06 PM >Patient still has not updated his photo ID. He is not eligible for an appointment until doing so. He stated her will call us to reschedule when he has it updated. Referral Priority Routine Reason Chronic neck pain Diagnosis 1 Cervicalgia (M54.2) Diagnosis 2 Other chronic pain ( G89.29) Referring Provider First Name Moncho Referring Provider Last Name Lexi Referring Provider Speciality Orthopedic Surgery Referred Organization [facility] [employer] Referred Provider Sebastian Mi Referred Address [address], [place] Referred Provider Specialty Pain Managem ent General Notes Alfred Jadeelle 09:45:57 AM >Sent for insurance verification. Also need to verify patient has updated photo ID., Rita Bowles 07/22/2023 12:49:34 PM > active. no copay., Agatha Jade 07/28/2023 02:18:05 PM >Patient still has not updated his photo ID since 2019. I told him to call us once that is updated. Referral Priority Routine Medications Medication SIG (Take, Route, Frequency, Duration) Notes Start Date End Date Status Advair Diskus 250 mcg-50 mcg 1 INH inhal ed 2 times a day for 30 day(s) Active aspirin 81 mg 1 tab orally once a day Active hydrochlorothiazide-triamter latonya 25 mg-37.5 mg 1 cap orally once a day Active lisinopril 20 mg 1 tab orally once a day Active TiZANidine Hydrochloride 4 mg 1 tab po orally TID prn spasm Active Metoprolol Succinate ER 50 mg 1 tab orally once a day Acti ve celecoxib 200 mg 1 cap po orally once daily prn pain; take with food Active omeprazole 20 mg 1 cap orally twice a day Active gabapentin 600 mg 1 tab po orally TID Active oxyCODONE 5 mg 1 tab orally every 4 -6 hours, as needed for pain Active simvastatin 20 mg 1 tab orally once a day Active Social History Tobacco Use: Social History Observation Description Date Details (start date - stop date) Current Smoker 03/01/1979 - NA Sex Assigned At : Social History Observation Description Sex Assigned At Male alcohol Question Answer Notes Did you have a drink contain ing alcohol in the past year? Yes How often did you have a dri nk containing alcohol in the past year? Monthly or less (1 point) How many drinks did you have on a typical day when you were drinking in the past year? 3 or 4 (1 point) How often did you have six o r more drinks on one occasion in the past year? Never (0 points) Points 2 Interpretation Negative Tobacco use: Question Answer Notes : current smoker Are you interested in quitting? Not ready to tony t How many cigarettes a day do you smoke? 11-20 How often do you smoke cigarettes? every day How soon after you wake up do you smoke your fir st cigarette? within 5 min When did you start smoking? 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 analgesic (Z79.891) Active confirmed Problem Anxiety disorder (691085516) Other specified anxiety disorders (F41.8) Active confirmed Problem Hypersomnia (72383219) Hypersomnia, unspecified (G47.10) Active confirmed Problem Sleep disorder (03043393) Other sleep disorders (G47.8) Active confirmed Problem Chronic pain (09474693) Other chronic pain (G89.29) Active confirmed Problem Joint pain (35178463) Pain in unspecified joint (M25.50) Active confirmed Problem Pain of right shoulder region (finding) (6914345002) Pain in right shoulder (M25.511) Active confirmed Problem Spinal stenosis of lumbar region (90519671) Spinal stenosis, lumbar region (M48.06) Active confirmed Problem Radiculopathy due to lumbar intervertebral disc disorder (948206004442193) Intervertebral disc disorders with radiculopathy, lumbar region (M51.16) Active confirmed Problem Lumbar radiculopathy (446043737) Radiculopathy, lumbar region (M54.16) Active confirmed Problem Cervicalgia (60190212) Cervicalgia (M54.2) Active confirmed Problem Myalgia (88193007) Myalgia (M79.1) Active confirmed Problem Long-term current use of drug therapy (234713562) 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 therapy (Z79.899) Active confirmed Plan Of Treatment No Information Insurance Providers Payer Name Payer Address Payer Phone Subscriber Number Group Number Insured Name Patient Relationship to Insured Coverage Start Date Coverage End Date [employer] [address] [address] [place] [address] [id number] Sadi Paniagua Self - patient is the insured [place] [address] [place] [address] [id number] Sadi Paniagua Self - patient is the insured Medical (General) History Medical History History ICD Code Low back pain Chronic back pain Scoliosis Benign essential hypertension GERD Hyperlipidemia Nerve damage Borderline diabetic Surgical History Surgery Date(Month/Year) Appendectomy, performed in [place], [place], 1 977 Hernia repair, performed in [place], [place], Upper GI procedure (possible dilation), performed in [place], 06/2015, 2019 Hospitalization History Reason Date(Month/Year) Heart attack, 2001 Chest pain, treated at [facility] 2011, Dehydration (possible food poisoning), t reated at [place], [place], 2018
[2024-01-14] VITALS (27 sets, daily range): BP systolic 114–167; BP diastolic 61–110; PULSE 65–92; RESP 11–20; TEMP 36.1–36.8; O2SAT 91–100; BMI 31.4
--- OUTSIDE RECORDS SUMMARY | 2024-01-14 05:56 | XMS_ITS | Patient Health Record ---
Author Name Unknown Organization [facility] Address [address] [place], [place] [id number] Care Team Providers Care Educational Technology Specialist Name Role Phone Sebastian Mi MD Unavailable [phone] Moncho Elliott DO Unavailable Unavailable Allergies Allergen [...] Jared Referring Provider Last Name Cherelle Referred [facility] Referred Provider Sebastian Mi Referred Address [address] [place], [id number], Referred Provider Specialty Pain Managem ent General [...] Speciality Orthopedic Surgery Referred Organization [facility] [employer] Referred Provider Sebastian Mi Referred Address [address] [place], [place] Referred Provider Specialty Pain Managem ent General [...] W/U Status Risk Notes Problem Solitary sacroiliitis (739010752) Sacroiliitis, not elsewhere classified (M46.1) Active confirmed Problem Low back pain (691174285) Low back pain (M54.5) Active confirmed Problem Lumbosacral spondylosis without myelopathy (93510302) Spondylosis without myelopathy or radiculopathy, lumbar region (M47.816) Active confirmed Problem High risk drug monitoring status (643583102) 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 analgesic (Z79.891) Active confirmed Problem Anxiety disorder (572605021) Other specified anxiety disorders (F41.8) Active confirmed Problem Hypersomnia (87685805) Hypersomnia, unspecified (G47.10) Active confirmed Problem Sleep disorder (09210800) Other sleep disorders (G47.8) Active confirmed Problem Chronic pain (93791291) Other chronic pain (G89.29) Active confirmed Problem Joint pain (02380537) Pain in unspecified joint (M25.50) Active confirmed Problem Pain of right shoulder region (finding) (8133207616) Pain in right shoulder (M25.511) Active confirmed Problem Spinal stenosis of lumbar region (52941616) Spinal stenosis, lumbar region (M48.06) Active confirmed Problem Radiculopathy due to lumbar intervertebral disc disorder (433412138929582) Intervertebral disc disorders with radiculopathy, lumbar region (M51.16) Active confirmed Problem Lumbar radiculopathy (649736391) Radiculopathy, lumbar region (M54.16) Active confirmed Problem Cervicalgia (97645393) Cervicalgia (M54.2) Active confirmed Problem Myalgia (59188833) Myalgia (M79.1) Active confirmed Problem Long-term current use of drug therapy (740550134) 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 (Z79.899) Active confirmed Plan Of Treatment No Information Insurance Providers Payer Name Payer Address Payer Phone Subscriber Number Group Number Insured Name Patient Relationship to Insured Coverage Start Date Coverage End Date [employer] [address] [address] [place] [address] [id number] Sadi Paniagua Self - patient is the insured [place] [address] [place] [address] [phone] [id number] Sadi Paniagua Self - patient is the insured Medical (General) History Medical History History ICD Code Low back pain Chronic back pain Scoliosis Benign essential hypertension GERD Hyperlipidemia Nerve damage Borderline diabetic Surgical History Surgery Date(Month/Year) Appendectomy, performed in [place], [place], 1 977 Hernia repair, performed in [place], [place], Upper GI procedure (possible dilation), performed in [place], 06/2015, 2019 Hospitalization History Reason Date(Month/Year) Heart attack, 2001 Chest pain, treated at [facility] 2011, Dehydration (possible food poisoning), t reated at [place], [place], 2018
--- NOTE | 2024-01-14 06:07 | ANES.PREANE2 ---
Pre-Anesthetic Assessment Height/Weight: Height 5 ft 6 in Preop Diagnosis: Cervical spondylosis Operation Date: 01/14/24 07:00 Proposed Procedures p Cervical Posterior Fusion Posterior Cervical Fusion(Not Applicable) - Moncho Elliott DO s Cervical Laminectomy(Not Applicable) - Moncho Elliott DO s Thoracic Fusion(Not Applicable) - Moncho Elliott DO Was Beta Vipin taken within 24 hours: Yes Was Clonidine taken within 24 hours: N/A Social Tobacco and No alcohol Exam alert, oriented x 3 and regular rate & rhythm Mild rhonchi heard on auscultation Airway Submandibular: within normal limits Cervical ROM: within normal limits Mallampati: Class II Dentition: other (No teeth on top, poor dentition on bottom) Anesthetic Plan ASA status: 4 Anesthesia: General Other: No prior issues with anesthesia NPO since yesterday History of hypertension on losartan and metoprolol Patient has degenerative scoliosis with cervical radiculopathy, numbness tingling in both upper extremities GERD on omeprazole Labs 12/16/2023 reviewed. Hemoglobin 15.5. Type and screen ordered K+ 5.2 Chronic leukocytosis noted, patient has CLL. This is being watched by oncology Prior echo showing EF 50 to 55%. EKG sinus rhythm Chronic shortness of breath, dyspnea on exertion. Rhonchi on auscultation. Preop DuoNeb ordered Plan for GETA with A-line Medications/Allergies Home Medications Medication Instructions Recorded Confirmed Last Taken Type aspirin 81 mg tablet,delayed 81 mg PO QAM 01/18/20 01/14/24 2 Weeks Ago History release (Adult Aspirin Regimen) ~12/31/23 omeprazole 20 mg capsule,delayed 20 mg PO QAM 01/18/20 01/14/24 01/14/24 History release simvastatin 20 mg tablet 20 mg PO QAM 01/18/20 01/14/24 01/13/24 History albuterol sulfate 90 mcg/actuation 2 puff inhalation Q6H PRN 07/04/20 01/14/24 05/15/20 History aerosol inhaler (Ventolin HFA) Shortness Of Breath fluticasone 500 mcg-salmeterol 50 1 inh inhalation BID 07/04/20 01/14/24 01/14/24 History mcg/dose blistr powdr for inhalation (Advair Diskus) gabapentin 600 mg tablet 600 mg PO TID 05/12/21 01/14/24 01/14/24 History albuterol sulfate 90 mcg/actuation 2 inh inhalation Q4H PRN shortness 07/22/22 01/14/24 Unknown Rx aerosol inhaler of breath or wheezing #8.5 grams losartan 50 mg-hydrochlorothiazide tab PO 06/07/23 01/11/24 01/14/24 History 12.5 mg tablet mupirocin 2 % topical ointment 1 applic topical TID #22 grams 07/01/23 01/14/24 Unknown Rx metoprolol succinate 25 mg mg PO 09/08/23 01/11/24 01/14/24 History tablet,extended release 24 hr montelukast 10 mg tablet mg PO 09/08/23 01/11/24 01/14/24 History naproxen 500 mg tablet mg PO 09/08/23 01/11/24 01/13/24 History baclofen 20 mg tablet mg PO 12/15/23 01/11/24 01/14/24 History ropinirole 0.5 mg tablet 0.5 mg PO BEDTIME 12/15/23 01/14/24 01/13/24 History walker #1 ea 12/23/23 01/11/24 Unknown Rx Allergies Allergy/AdvReac Type Severity Reaction Status Date / Time morphine AdvReac ITCHING Verified 01/11/24 14:32 PFS Anesthesia Medical History Chronic lymphocytic leukemia Elevated LDH Hyperlipidemia Chronic back pain GERD (gastroesophageal reflux disease) History of sciatica History of hypertension Scoliosis History of esophageal dilatation Surgical History History of lumbar laminectomy History of hernia repair History of appendectomy Family History Other CAD (coronary artery disease) Cancer Chronic kidney disease (CKD) Diabetes Hypertension Lung disease Denies family history of Clotting disorder Dementia Hyperlipidemia Psychiatric illness Suicide Anesthesia complication Bleeding disorder Stroke Social History Smoking and tobacco/nicotine status: current every day tobacco/nicotine user cigarettes Packs smoked per day: 1 Years cigarettes smoked: 40 Alcohol intake: current Alcohol intake frequency: other Substance/Drug Use: never Lives independently: Yes Data Anesthesia Cardiac Studies: Echocardiogram 04/07/21 Sestamibi Stress Test (Cardiology) 03/21/21
--- NOTE | 2024-01-14 06:22 | W.PM.OPSUD ---
Surgery/Procedure H&P Update DATE OF PROCEDURE: January 14, 2024 DATE H&P PERFORMED: 01/11/24 H&P UPDATE INFORMATION: I have reviewed H&P completed within last 30 days, I have examined patient prior to procedure and No changes to prior documentation PREOP DIAGNOSIS: Cervical spondylosis with myelopathy PLANNED PROCEDURE: Operation Date: 01/14/24 07:00 Proposed Procedures p Cervical Posterior Fusion Posterior Cervical Fusion(Not Applicable) - Moncho Elliott DO s Cervical Laminectomy(Not Applicable) - DO camilla Andrews Thoracic Fusion(Not Applicable) - Moncho Elliott DO
[2024-01-14] MEDS: albuterol 2.5 mg/3 mL Neb INHALATION ×3 (06:33→20:32)
[2024-01-14] MEDS: sodium chloride 0.9% 1,000 ML 30 ML IV (06:35)
[2024-01-14] MEDS: ceFAZolin 2,000 mg SDV 2000 MG IVP ×3 (07:03→23:09)
[2024-01-14] MEDS: lidocaine-epi 1% PF 1:200,000 30 mL SDV INJECTION (08:03)
[2024-01-14] MEDS: VANCOMYCIN ADD-Vantage 1,000 MG VIAL 1000 MG XX (08:30)
--- NOTE | 2024-01-14 11:33 | P.OP_ITS ---
Operative Report Date of procedure: January 14, 2024 Pre-op diagnosis: Cervical spondylosis with myelopathy Post-op diagnosis: same Procedure done: 1. C2-T2 posterior cervical fusion 2. C2-T2 posterior cervical instrumentation 3. C3-4 laminectomy with partial facetectomies 4. C4-5 laminectomies with partial facetectomies 5. C5-6 laminectomies with partial facetectomies 6. C6-7 laminectomies with partial facetectomies 7. Use of computer navigation stereotactic for spine 8. Use of allograft bone graft 9. Use of autograft bone graft from same incision Surgeon: Moncho Elliott DO Estimated blood loss (mL): 100 Procedure: 1. C2-T2 posterior cervical fusion 2. C2-T2 posterior cervical instrumentation 3. C3-4 laminectomy with partial facetectomies 4. C4-5 laminectomies with partial facetectomies 5. C5-6 laminectomies with partial facetectomies 6. C6-7 laminectomies with partial facetectomies 7. Use of computer navigation stereotactic for spine 8. Use of allograft bone graft 9. Use of autograft bone graft from same incision Patient is brought the op suite after undergoing anesthesia was placed in the prone position. All areas impingement were well-padded. Neuromonitoring was attached. Patient was then prepped and draped normal sterile fashion. Skin incision was made from C2 down to T2. Subperiosteal dissection was made out to the lateral masses of C2 down to C7. Once the dissection was complete the fiducial for the computer navigation was then attached to the C2 spinous process. C-arm was brought in and spun around the patient. The information from the serum was unloading the computer for later use of placing the pars screw and pedicle screws. Next attention was brought to placing the C2 pars screws. This was done using computer navigation. The starting point was made with a drill. Then using the computer navigated drill the drill was made in the pars of C2 on both the right and left side. On the left side is able to get a 22 mm screw. On the right side I did a 14 mm screw. Next attention was brought to placing the pedicle scr ews. This was done using the drill to get the starting point. Then using the computer navigated gearshift probe the pedicle was opened. Pedicle feeler was then used to. Then the screw was placed using good. Navigation. This was done at T1 bilaterally and T2 bilaterally. Next attention was brought to placing the lateral mass screws. Lateral mass screws were placed by using the High-speed b ur. Followed by using the handrail. The drill holes were made to 12 mm. Next the pedicle feeler was used. The lateral mass screws were then placed. This was done at C3 on the left. C4 bilaterally. C5 bilaterally. C6 on the right. Next attention was brought to placing the rods into the screws. This was done on both right and left sides. The rods were attached from C2-T2. The rods were placed in the t[place]ips. And then the screw caps were placed locked down and torqued. This was done bilaterally. Next attention was brought to performing laminectomies. Attention was first brought to the C6-7 level. A high-speed bur was used to cut down the lamina on the left and right side. The ligamentum flavum was then opened with a curette and Kerrison rongeur. The lamina was then elevated off of the dura along with the ligamentum flavum. Next a Kerrison rongeur was used to open the facet. Taking down the medial aspect of the C6 and C7 facet. This was done bilaterally. Next attention was brought to the C5-6 level. High-speed bur was used to cut down the lamina on the left and right side. The lamina was then elevated up along with the ligamentum flavum. And removed. The Kerrison rongeur was then used to take down the medial aspect of the facet at C5 and 6 bilaterally. Next tension was brought to the C4-5 level. High-speed bur again was used to take down the right and left sides of the lamina. The lamina and ligamentum flavum were elevated off of the dura. And removed. The medial aspect of the facets were taken down at C4 and 5 with a Kerrison rongeur this is done bilaterally. Next attention was brought to the C3-4 level. Again the high-speed bur was used to take down the right left side of the lamina. The lamina and ligamentum flavum were elevated off and removed. The medial aspect of the C3 and C4 levels of the facets were taken down medially with a Kerrison rongeur. Next attention was brought to decorticating the lateral masses and lamina and transverse processes bilaterally. Bone graft was then packed into the lateral gutters bilaterally. Ostial amp allograft was used. Wound was irrigated prior to placing the bone graft. Vancomycin powder was placed. A deep drain was placed. And then the wound was closed in a layered fashion with 0 Vicryl 2-0 Vicryl and Monocryl suture. Sterile dressings were applied cervical collar was placed and patient was transferred to the PACU in stable condition.
[2024-01-14] MEDS: fentaNYL 50 mcg/mL INJ 2mL IVP ×2 (12:01→12:21)
--- NOTE | 2024-01-14 12:43 | PC.NURSE ---
Arterial line removed at approximately 1200. Line intact. Pressure held to site for 5 minutes. Patient tolerated well.
--- NOTE | 2024-01-14 12:53 | ANE.PACU2 ---
Inpatient post-anesthesia follow up: Airway intact: Yes Vital signs: Temperature 97.5 F Pulse Rate 75 Respiratory Rate 16 Blood Pressure 126/80 Pulse Oximetry 93 Oxygen Delivery Me thod Room Air Oxygen Flow Rate 6 Fraction of Inspir ed Oxygen Hydration adequate: Yes Nausea and vomiting: No Pain level: 1 Mental status: Baseline
--- NOTE | 2024-01-14 13:11 | PC.NURSE ---
Assumed care of patient at 1311
--- NOTE | 2024-01-14 13:40 | XR_ITS ---
WS: [id number] C ARM fluoroscopy of the cervical spine, 01/14/2024 Clinical Data: or pic, neck fusion Comparison: Cervical spine x-ray, 05/11/2023 Findings: Dr. Elliott performed a posterior cervical thoracic fusion. XR/XR cervical spine 1V [id number] Impression: Posterior cervical thoracic fusion.
[2024-01-14] MEDS: HYDROcodone-acetaminophen 5-325 mg Tablet PO ×2 (13:48→20:15)
[2024-01-14] MEDS: mupirocin oint 22 gm 1 APPLIC TOPICAL ×2 (17:18→20:20)
[2024-01-14] MEDS: baclofen 10 mg Tablet PO (17:19)
[2024-01-14] MEDS: docusate sodium 100 mg Capsule PO (17:19)
[2024-01-14] MEDS: gabapentin 300 mg Capsule 600 MG PO ×2 (17:19→20:15)
[2024-01-14] MEDS: lactated ringers 1,000 ML 90 ML IV (17:24)
[2024-01-14] MEDS: budesonide 0.5 mg/2 mL Neb INHALATION (20:32)
[2024-01-15] VITALS (12 sets, daily range): BP systolic 115–135; BP diastolic 70–87; PULSE 82–102; RESP 15–18; TEMP 36.8–37.1; O2SAT 91–97
[2024-01-15] MEDS: lactated ringers 1,000 ML 90 ML IV ×2 (03:44→14:09)
[2024-01-15] MEDS: HYDROcodone-acetaminophen 5-325 mg Tablet PO ×4 (03:48→19:47)
[2024-01-15] MEDS: pantoprazole DR 40 mg Tablet PO (05:44)
[2024-01-15] MEDS: atorvastatin 40 mg Tablet PO (05:45)
[2024-01-15] MEDS: ceFAZolin 2,000 mg SDV 2000 MG IVP (05:55)
[2024-01-15] MEDS: albuterol 2.5 mg/3 mL Neb INHALATION ×3 (08:28→15:07)
[2024-01-15] MEDS: budesonide 0.5 mg/2 mL Neb INHALATION (08:28)
--- OUTSIDE RECORDS SUMMARY | 2024-01-15 09:14 | XMS_ITS | Patient Health Record ---
Author Name Unknown Organization [facility] Address [address] [place], [place] [id number] Care Team Providers Care [facility] Light Wirer Name Role Phone Sebastian Mi MD Unavailable [phone] Moncho Elliott DO Unavailable Unavailable Allergies Allergen [...] Jared Referring Provider Last Name Cherelle Referred [facility] Referred Provider Sebastian Mi Referred Address [address] [place], [id number], Referred Provider Specialty Pain Managem ent General [...] Speciality Orthopedic Surgery Referred Organization [facility] Referred Provider Sebastian Mi Referred Address [address] [place], [id number] Referred Provider Specialty Pain Managem ent General [...] W/U Status Risk Notes Problem Solitary sacroiliitis (562849673) Sacroiliitis, not elsewhere classified (M46.1) Active confirmed Problem Low back pain (537292131) Low back pain (M54.5) Active confirmed Problem Lumbosacral spondylosis without myelopathy (22862135) Spondylosis without myelopathy or radiculopathy, lumbar region (M47.816) Active confirmed Problem High risk drug monitoring status (377008184) superintendent terminal (current) use of opiate analgesic (Z79.891) Active confirmed Problem Anxiety disorder (766246835) Other specified anxiety disorders (F41.8) Active confirmed Problem Hypersomnia (76809034) Hypersomnia, unspecified (G47.10) Active confirmed Problem Sleep disorder (99216013) Other sleep disorders (G47.8) Active confirmed Problem Chronic pain (54436977) Other chronic pain (G89.29) Active confirmed Problem Joint pain (01709594) Pain in unspecified joint (M25.50) Active confirmed Problem Pain of right shoulder region (finding) (5957551283) Pain in right shoulder (M25.511) Active confirmed Problem Spinal stenosis of lumbar region (30138183) Spinal stenosis, lumbar region (M48.06) Active confirmed Problem Radiculopathy due to lumbar intervertebral disc disorder (791632846775569) Intervertebral disc disorders with radiculopathy, lumbar region (M51.16) Active confirmed Problem Lumbar radiculopathy (468493932) Radiculopathy, lumbar region (M54.16) Active confirmed Problem Cervicalgia (97988157) Cervicalgia (M54.2) Active confirmed Problem Myalgia (01716022) Myalgia (M79.1) Active confirmed Problem Long-term current use of drug therapy (973273182) Other exterminator (current) drug therapy (Z79.899) Active confirmed Plan Of Treatment No Information Insurance Providers Payer Name Payer Address Payer Phone Subscriber Number Group Number Insured Name Patient Relationship to Insured Coverage Start Date Coverage End Date [employer] [address] [address] [place] [address] [id number] Sadi Paniagua Self - patient is the insured [place] [address] [place] [address] [id number] Sadi Paniagua Self - patient is the insured Medical (General) History Medical History History ICD Code Low back pain Chronic back pain Scoliosis Benign essential hypertension GERD Hyperlipidemia Nerve damage Borderline diabetic Surgical History Surgery Date(Month/Year) Appendectomy, performed in [place], [place], 1 977 Hernia repair, performed in [place], [place], Upper GI procedure (possible dilation), performed in [place], [place], 06/2015, 2019 Hospitalization History Reason Date(Month/Year) Heart attack, 2001 Chest pain, treated at [facility] 2011, Dehydration (possible food poisoning), t reated at [place], [place], 2018
[2024-01-15] MEDS: montelukast sodium 10 mg Tablet PO (09:17)
[2024-01-15] MEDS: docusate sodium 100 mg Capsule PO ×2 (09:17→17:43)
[2024-01-15] MEDS: gabapentin 300 mg Capsule 600 MG PO ×3 (09:17→19:52)
[2024-01-15] MEDS: hydroCHLOROthiazide 25 mg Tablet 12.5 MG PO (09:17)
[2024-01-15] MEDS: losartan 50 mg Tablet PO (09:17)
[2024-01-15] MEDS: metoprolol succinate ER (24 HR) 25 mg Tablet PO (09:17)
[2024-01-15] MEDS: mupirocin oint 22 gm 1 APPLIC TOPICAL ×3 (09:18→19:53)
--- NOTE | 2024-01-15 10:50 | PM.PN ---
Subjective Subjective: Patient doing well for the most part complaining of pain in his neck and shoulders. Currently working with physical therapy. Patient continues to have tingling in his hands and feet. Vitals/I&O/Wt Last Vital Signs Temp 98.3 F 01/15/24 07:38 Pulse 85 01/15/24 08:44 Resp 18 01/15/24 08:28 BP 128/79 01/15/24 07:38 Pulse Ox 91 01/15/24 08:28 O2 Del Method Room Air 01/15/24 08:28 O2 Flow Rate 6 01/14/24 11:56 01/14/24 01/15/24 01/15/24 22:59 06:59 14:59 Intake Total 570 / 1145 1580 / 2725 240 / 240 Output Total 1700 / 1800 450 / 2250 Balance -1130 / -655 1130 / 475 240 / 240 Weight last 48 hrs Weight 206 lb Weight 195 lb Weight 195 lb Physical Exam Narrative: Patient currently working with therapy sitting at the bedside. Exam preop to postop is unchanged. Urinary Catheter Management: Velez Latex: Cath Placed During This Visit: yes Reason for Continuing Indwelling Catheter: Other Urinary Catheter Date of Insertion: 01/14/24 Urinary Catheter Time of Insertion: 07:50 A&P Assessment and plan (1) Status post cervical spinal fusion: Patient is postop day #1 cervical spine fusion. Up with physical therapy Anticipate discharge tomorrow. DC Velez and DC Hemovac drain. Attestations Medical Necessity Statement*: Pain control Coding Level of Care Code Acute Code for Chg Fwd Diagnoses Status post cervical spinal fusion Z98.1
[2024-01-15] MEDS: baclofen 10 mg Tablet PO (17:43)
--- NOTE | 2024-01-15 18:31 | PC.NURSE ---
Hemovac removed at 1200. Tolerated well. Catheter intact.
[2024-01-16] VITALS (8 sets, daily range): BP systolic 134–147; BP diastolic 79–90; PULSE 97–101; RESP 16–19; TEMP 36.7–37.4; O2SAT 90–92
[2024-01-16] MEDS: lactated ringers 1,000 ML 90 ML IV (01:03)
[2024-01-16] MEDS: HYDROcodone-acetaminophen 5-325 mg Tablet PO ×3 (01:05→11:29)
[2024-01-16] MEDS: atorvastatin 40 mg Tablet PO (05:06)
[2024-01-16] MEDS: pantoprazole DR 40 mg Tablet PO (05:06)
[2024-01-16] MEDS: budesonide 0.5 mg/2 mL Neb INHALATION (07:41)
[2024-01-16] MEDS: albuterol 2.5 mg/3 mL Neb INHALATION (07:41)
[2024-01-16] MEDS: hydroCHLOROthiazide 25 mg Tablet 12.5 MG PO (09:05)
[2024-01-16] MEDS: metoprolol succinate ER (24 HR) 25 mg Tablet PO (09:05)
[2024-01-16] MEDS: docusate sodium 100 mg Capsule PO (09:05)
[2024-01-16] MEDS: baclofen 10 mg Tablet PO (09:05)
[2024-01-16] MEDS: gabapentin 300 mg Capsule 600 MG PO (09:05)
[2024-01-16] MEDS: montelukast sodium 10 mg Tablet PO (09:06)
[2024-01-16] MEDS: losartan 50 mg Tablet PO (09:06)
[2024-01-16] MEDS: mupirocin oint 22 gm 1 APPLIC TOPICAL (09:06)
--- NOTE | 2024-01-16 10:10 | PM.DCS ---
Discharge Providers Date of Admission: 01/14/24 12:52 Date of Discharge: January 16, 2024 Attending Provider at Admission: Moncho Elliott DO Attending Provider at Discharge: Moncho Elliott DO Primary Care Provider: Jared Villarreal MD Diagnoses at Discharge Discharge Diagnosis (1) Status post cervical spinal fusion: Status: Acute Physical Exam Narrative: Patient is doing well pain is improved today. Still complaining of tingling. Did well with therapy yesterday. Urinary Catheter Management: Velez Latex: Cath Placed During This Visit: yes, but has since been removed by the nurse Reason for Continuing Indwelling Catheter: Decision to DC Catheter Urinary Catheter Date of Insertion: 01/14/24 Urinary Catheter Time of Insertion: 07:50 Date Urinary Catheter Removed: 01/15/24 Time Urinary Catheter Discontinued: 14:45 Discharge Data Studies Completed and Pending Completed Studies During Hospitalization Category Date Time Status XR cervical spine 1V 29331 Routine Exams 01/14/24 13:40 Completed Pending at discharge Category Date Time Status C-arm Fluoroscopy 31721 Routine Exams 01/14/24 06:15 Taken Radiology Impressions Cervical Spine X-Ray 01/14/24 13:40 Impression: Posterior cervical thoracic fusion. Laboratory Results Blood Type O Positive 01/14/24 07:29 Rho(D) Type Rh positive 01/14/24 07:29 Antibody Screen Negative 01/14/24 07:29 Vitals Last Vital Signs Temp 98.5 F 01/16/24 08:07 Pulse 98 01/16/24 08:07 Resp 17 01/16/24 08:07 BP 137/88 01/16/24 09:06 Pulse Ox 92 01/16/24 08:07 O2 Del Method Room Air 01/16/24 08:07 O2 Flow Rate 6 01/14/24 11:56 Discharge Plan Discharge Patient Disposition: Home Condition: Stable Prescriptions: New hydrocodone-acetaminophen 5-325 mg tablet 1 - 2 tab PO .Q4-6H Qty: 40 0RF Continued omeprazole 20 mg capsule,delayed release(DR/EC) 20 mg PO QAM aspirin [Adult Aspirin Regimen] 81 mg tablet,delayed release (DR/EC) 81 mg PO QAM simvastatin 20 mg tablet 20 mg PO QAM fluticasone propion-salmeterol [Advair Diskus] 500-50 mcg/dose blister with device 1 inh inhalation BID albuterol sulfate [Ventolin HFA] 90 mcg/actuation HFA aerosol inhaler 2 puff inhalation Q6H PRN (Reason: Shortness Of Breath) gabapentin 600 mg tablet 600 mg PO TID losartan-hydrochlorothiazide 50-12.5 mg tablet 1 tab PO DAILY montelukast 10 mg tablet 10 mg PO DAILY metoprolol succinate 25 mg tablet extended release 24 hr 25 mg PO DAILY naproxen 500 mg tablet 500 mg PO DIRECTED PRN (Reason: Pain) baclofen 20 mg tablet 20 mg PO DIRECTED ropinirole 0.5 mg tablet 0.5 mg PO BEDTIME mupirocin 2 % ointment 1 applic topical TID Qty: 22 0RF (DME) walker See Rx Instructions .Route .MEDSUPPLY Qty: 1 0RF Rx Instructions: As directed Length of service 99 albuterol sulfate 90 mcg/actuation HFA aerosol inhaler 2 inh inhalation Q4H PRN (Reason: shortness of breath or wheezing) Qty: 8.5 0RF Discharge Orders: Discharge Order (Routine); Ordered 01/16/24 Ordered By: Moncho Elliott Discharge Diet: Advance as tolerated Discharge Activity: Limit activity as instructed Patient Instructions: Acute Wound Care (DC), Opioid Safety, Post Anesthesia Care Activity Restrictions/Additional Instructions: Thank you for choosing [facility] for your care! The following is a list of instructions, from your provider, to follow upon your discharge to ensure you have the optimal recovery from your recent injury or surgery. Anterior Cervical Discectomy and Fusion: What to Expect at Home Your Recovery Follow-up care is a mcdermott part of your treatment and safety. Be sure to make and go to all appointments, and call your doctor if you are having problems. If you do not already have a follow-up appointment made, call office in the next 1-3 days to make follow up appointment for 2 weeks at [phone]. It is also a good idea to know your test results and keep a list of the medicines you take. You can expect your neck to feel stiff or sore after surgery. This should improve in the weeks after surgery. But it may take 4 to 6 months for you to get better completely. You may have trouble sitting or standing in one position for very long and may need pain medicine in the weeks after your surgery. It may take 4 to 6 weeks to get back to your usual activities, but it may depend on what kind of surgery you had. Your throat will feel sore and it may be difficult to swallow for the first 3 days after your surgery. As long as you can get liquids down without difficulty, this should slowly improve, otherwise call our office or seek medical attention if it becomes increasingly difficult to get anything down including liquids. Avoid hot liquids for first 3-5 days. Soothing foods/liquids such as jello, pudding, and luke warm soups are recommended until swallowing improves. Staying elevated will also help, it's advised you keep propped up at while sleeping to help reduce the swelling. You may use an ice pack directly on your incision or around it on the front of your neck, using a cloth to protect your skin; and a heating pad to the back of your neck as needed. Do not use over the counter anti-inflammatory medications (Ibuprofen, Motrin, Aleve, Advil, etc) Taking these meds after having a fusion can delay fusion rates, we recommend you avoid them for the first 3 months after your surgery[address] Dr. Elliott may advise you to work with a physical therapist to strengthen the muscles around your neck and back - this will be discussed at your follow - up appointments. The pain or numbness you were having in your arms before surgery should get better or go away completely. This care sheet gives you a general idea about how long it will take for you to recover. But each person recovers at a different pace. Follow the steps below to get better as quickly as possible. How can you care for yourself at home? Activity ? Rest when you feel tired. Getting enough sleep will help you recover. ? Try to walk each day. Start by walking a little more than you did the day before. Bit by bit, increase the amount you walk. Walking boosts blood flow and helps prevent pneumonia and constipation. Walking may also decrease your muscle soreness after surgery. ? No lifting anything that is more that 5 pounds. This may include heavy grocery bags and milk containers, a heavy briefcase or backpack, cat litter or dog food bags, a child, or a vacuum apparatus cleaner. ? Avoid strenuous activities, such as bicycle riding, jogging, weightlifting, or aerobic exercise, until your doctor says it is okay. ? Do not drive until your follow-up visit after your surgery, or until your doctor says it isokay. ? Avoid taking long car trips for 2 to 4 weeks after surgery. Your neck may become tired and painful from sitting too long in one position. ? You will probably need to take 4 to 6 weeks off from work. It depends on the type of work you do and how you feel. ? You may have sex as soon as you feel able, but avoid positions that put stress on your neck or cause pain. Diet ? You can eat your normal diet. If your stomach is upset, try bland, low-fat foods like plain rice, broiled chicken, toast, and yogurt ? Drink plenty of fluids. If you have kidney, heart, or liver disease and have to limit fluids, talk with your doctor before you increase the amount of fluids you drink. ? You may notice that your bowel movements are not regular right after your surgery. This is common. Try to avoid constipation and straining with bowel movements. You may want to take a fiber supplement every day. If you have not had a bowel movement after a couple of days, ask your doctor about taking a mild laxative. Medicines ? Take pain medicines exactly as directed. 1. If Dr. Elliott gave you a prescription medicine for pain, take lt as prescribed. 2. Do not take two or more pain medicines at the same time unless the doctor told you to. Many pain medicines have acetaminophen, which is Tylenol. Too much acetaminophen {Tylenol) can be harmful. 3. If you think your pain pill is making you sick to your stomach: 4. Take your pills after meals (unless your doctor has told you not to). 5. Ask your Dr. for a different pain pill. Incisioncare ? Remove your dressing 48hours after your surgery. Ok to shower and get the incision wet. Do not overtly wash your incision. When done, pad dry, leave open to air thereafter. Avoid creams and ointments directly on your incision. ? Your sutures in the incision will dissolve and fall out on their own. ? Keep the area clean and dry. You may cover it with a gauze bandage if it weeps or rubs against clothing; if you choose to do this, change the dressing everyday. Other instructions ? Use a heating pad, hot water bottle, or gentle massage on your back to reduce stiffness. Avoid putting heat on your incision When should you call for help? ? Call 911 anytime you think you may need emergency care. For example, call if: ? You pass out (lose consciousness). ? You have sudden chest pain and shortness of breath, or you cough upblood. ? You cannot swallow. ? You have severe pain in your neck or back. ? Call your Dr. or seek immediate medical care if: ? You have pain that does not get better after you take pain pills. ? You have loose stitches, or your incision comes open. ? You have blood or fluid draining from the incision. ? You have signs of infection, such as: 1. Increased pain, swelling, warmth, or redness. 2. Red streaks leading from the site. 3. Pus draining from the site. 4. Swollen lymph nodes in your neck or armpits. 5. A fever. ? You have severe pain in your arms. ? You have new or increased weakness or numbness in your arms. ? Watch closely for any changes in your health, and be sure to contact your doctor if: ? You do not have a bowel movement after taking a laxative. Discharge Attestations Time Spent in Discharge Care*: less than 30 min Quality Metrics Clinical Quality Measures [ No reported AMI, CVA or VTE this stay] Coding Level of Care Code Acute Code for Chg Fwd Diagnoses Status post cervical spinal fusion Z98.1
== END 2024-01-16 15:11 | disposition home or self-care (01) | DRG 451 ==
LOC: MEDSURG 15:51
PROVIDERS: Admitting Provider Orthopaedic Surgery; PCP Family Medicine; Visit Provider Orthopaedic Surgery
PROC: 0RG607J Fusion of Thoracic Vertebral Joint with Autologous Tissue Substitute, Posterior Approach, Anterior Column, Open Approach (ICD-10-PCS; CPT 22600; principal; 2024-01-14 07:00)
PROC: 0RG607J Fusion of Thoracic Vertebral Joint with Autologous Tissue Substitute, Posterior Approach, Anterior Column, Open Approach (ICD-10-PCS; CPT 63001; 2024-01-14 07:00)
PROC: 0RG607J Fusion of Thoracic Vertebral Joint with Autologous Tissue Substitute, Posterior Approach, Anterior Column, Open Approach (ICD-10-PCS; 2024-01-14 07:00)
DX: M47.12 Other spondylosis with myelopathy, cervical region (principal); C91.10 Chronic lymphocytic leukemia of B-cell type not having achieved remission; G95.89 Other specified diseases of spinal cord; M47.22 Other spondylosis with radiculopathy, cervical region; M48.02 Spinal stenosis, cervical region; I10 Essential (primary) hypertension; K21.9 Gastro-esophageal reflux disease without esophagitis; E78.5 Hyperlipidemia, unspecified; G89.29 Other chronic pain; F17.210 Nicotine dependence, cigarettes, uncomplicated; Z79.82 Long term (current) use of aspirin; Z79.51 Long term (current) use of inhaled steroids
CPT/HCPCS: 51702; 72020; 76000; 86850; 86900; 94640; 97110; 97116; 97161; 97530; C1713; J0131; J0690; J1100; J2371; J2405; J2704; J3010; J3370; J3490; J7030; J7120; J7613; J7626

== ENCOUNTER → 2024-02-01 15:11 | Outpatient (BNVA) | payer MEDICARE, MEDICAID, SELFPAY | PROVIDERS: PCP Family Medicine; Visit Provider Orthopaedic Surgery | DX: Z98.1 Arthrodesis status (principal) | CPT/HCPCS: 99024 ==

== ENCOUNTER → 2024-02-15 15:07 | Outpatient (BNVA) | payer MEDICARE, MEDICAID, SELFPAY | PROVIDERS: PCP Family Medicine; Visit Provider Orthopaedic Surgery | DX: Z98.1 Arthrodesis status (principal) | CPT/HCPCS: 72040; 99024 ==

== ENCOUNTER 2024-03-16 10:00 | Oncology outpatient (recurring) (ONCR) | payer MEDICARE, MEDICAID, SELFPAY ==
[2024-03-15 12:44] LABS: Basophils # 0.1 10^3/uL (0.0-0.1); Basophils % 0.2 %; Eosinophils # 0.6 10^3/uL (0.0-0.8); Eosinophils % 2.7 %; Hematocrit 42.2 % (37-53); Lymphocytes # 9.2 10^3/uL (0.8-4.8); Lymphocytes % 39.5 %; Mean Corpuscular HGB Conc 31.8 g/dL (30-55); Mean Corpuscular Hemoglobin 28.1 pg (27-33); Mean Corpuscular Volume 88.5 fl (82-101); Mean Platelet Volume 11.3 fL (7.4-10.4); Monocytes % 4.2 %; Neutrophils % 52.7 %; Nucleated Red Blood Cells % 0 %; Platelet Count 248 10^3/cmm (157-399); Red Blood Count 4.77 10^6/uL (3.85-5.65); Red Cell Distribution Width 14.9 % (12.1-15.1); White Blood Count 23.18 10^3/uL (3.29-11.43)
[2024-03-15 13:06] LABS: Alanine Aminotransferase 6 U/L (0-41); Albumin Level 3.8 g/dL (3.5-5.2); Alkaline Phosphatase 81 U/L (40-130); Anion Gap 12.7 (5-19); Aspartate Amino Transferase 10 U/L (0-40); Blood Urea Nitrogen 22 mg/dL (8-23); Carbon Dioxide 27 mmol/L (22-29); Chloride 105 mmol/L (98-107); Creatinine Clr Calc Pharmacy 96.2988; Globulin 2.5 g/dL (1.3-4.6); Glomerular Filtration Rate 98.3 mL/min (90-130); Glucose 106 mg/dL (65-115); Lactate Dehydrogenase 182 U/L (135-225); Osmolality Calculated 296 mOsm/kg (285-295); Potassium 3.7 mmol/L (3.5-5.1); Sodium 141 mmol/L (136-145); Total Bilirubin 0.3 mg/dL (0.15-1.2); Total Protein 6.3 g/dL (6.6-8.7)
--- NOTE | 2024-03-16 10:00 | CT_ITS ---
WS: [id number] CT ABDOMEN AND PELVIS WITH CONTRAST HISTORY: abnormal MRI lumbar spine, history of CLL. TECHNIQUE: Imaging performed of the abdomen and pelvis with IV contrast. Single phase imaging of the abdomen. Coronal and sagittal reformats are submitted. All CT scans at [facility] use at [address] one of these dose optimization techniques: automated exposure control; mA and/or kV adjustment per patient size (includes targeted exams where dose is matched to clinical indication); or iterative re construction. IV CONTRAST: Omnipaque 350; 100 mL IV. Oral contrast: Yes. DLP: 504.21 mGy.cm COMPARISON: 12/18/2021, prior MRI lumbar spine 12/01/2023 Lower thorax: Mild groundglass attenuation adjacent to the spine RIGHT lower lobe. Mild progression s sukhi 12/18/2021. Heart is normal size. No hiatal hernia. Liver/biliary system: Normal size liver. Stable 5 mm low-attenuation nodule in the LEFT lobe. Normal portal vein. No intrahepatic duct dilatation. Gallbladder: Contracted gallbladder with no adjacent inflammation. Pancreas: Normal size pancreas and pancreatic duct. No adjacent inflammation. Spleen: Normal size spleen. No mass or infarct. Adrenal glands: Normal. Right kidney: Normal. Left kidney: Exophytic solid mass from the lower pole measures 1.3 cm in transverse diameter. Mass byrne s increased in size from 7 mm in 2021. Hounsfield units are elevated. No renal obstruction. Aorta: Normal. Lymphadenopathy: Several enlarged round lymph nodes in the retroperitoneum. Majority of these lymph n odes centered near the aortic bifurcation and iliac arteries. Largest lymph node is 12 mm adjacent to the proximal LEFT common iliac artery. More distal 14 mm LEFT external iliac artery lymph node. Ther e are smaller lymph nodes at the aortic bifurcation and extending along the iliac chains. Anterior RI GHT obturator lymph node 12 mm. These lymph nodes have increased in size since 2021. No mesenteric ad enopathy. Free fluid: None. GI tract: No obstruction. Prior appendectomy. Abdominal wall: Unremarkable abdominal wall. No hernia. Pelvis: No free fluid. Urinary bladder is minimally distended. There is diffuse bladder wall thickeni ng which may be related to nondistention. Prostate gland is enlarged. Patent RIGHT inguinal canal con taining fat only. Bones: Severe rotary scoliosis lumbar spine. Asymmetric disc space narrowing with osteophytosis and e ndplate sclerosis. CT/CT abdomen pelvis w con* [id number] IMPRESSION: 1. Several enlarged round retroperitoneal and iliac chain lymph nodes. The lar gest lymph node measures 14 mm along the LEFT external iliac chain. Lymph nodes have increased in size since 2021. Correlate for recurrent CLL. 2. No splenomegaly. 3. No mesenteric adenopathy. 4. No ascites. 5. Solid exophytic mass lower pole LEFT kidney measures 1.3 cm. Close follow-u p recommended at this this may be an early renal cell neoplasm. This mass can b e reevaluated by MRI or CT with renal mass protocol which includes imaging with and without contrast.
[2024-03-16] MEDS: iohexol 350 mg/mL 500 mL Btl (per mL) PO (11:15)
[2024-03-16] MEDS: iohexol 350 mg/mL 500 mL Btl (per mL) IV (11:15)
== END 2024-03-31 23:59 | disposition home or self-care (01) ==
LOC: ONCMED 10:04 → RAD 03-17 → ONCMED 03-17 08:11
PROVIDERS: Internal Medicine; PCP Family Medicine; Visit Provider Nurse Practitioner Family
DX: C91.10 Chronic lymphocytic leukemia of B-cell type not having achieved remission (principal); R93.7 Abnormal findings on diagnostic imaging of other parts of musculoskeletal system; R59.9 Enlarged lymph nodes, unspecified; N28.89 Other specified disorders of kidney and ureter
CPT/HCPCS: 36415; 74177; 80053; 83615; 85025; 99214

== ENCOUNTER → 2024-03-16 14:53 | Outpatient (BNVA) | payer MEDICARE, MEDICAID, SELFPAY | PROVIDERS: PCP Family Medicine; Visit Provider Orthopaedic Surgery | DX: Z98.1 Arthrodesis status (principal) | CPT/HCPCS: 72040; 99024 ==

== ENCOUNTER → 2024-03-22 13:30 | Outpatient (BNVA) | payer MEDICARE, MEDICAID, SELFPAY | PROVIDERS: PCP Family Medicine; Visit Provider Nurse Practitioner | DX: G56.01 Carpal tunnel syndrome, right upper limb; R20.2 Paresthesia of skin; R20.0 Anesthesia of skin | CPT/HCPCS: 73110; 99214 ==

== ENCOUNTER → 2024-04-13 10:48 | Outpatient (BNVA) | payer MEDICARE, MEDICAID, SELFPAY | PROVIDERS: PCP Family Medicine; Visit Provider Orthopaedic Surgery | DX: Z98.1 Arthrodesis status (principal) | CPT/HCPCS: 72040; 99024 ==